=== PATIENT | female | born 1945 | race Caucasian/White ===

== ENCOUNTER 2023-09-27 10:21 | Emergency (ER) | payer MEDICARE, SELFPAY ==
[2023-09-27 10:33] VITALS: BP 133/84; PULSE 98; RESP 20; TEMP 36.8; O2SAT 98; BMI 21.6
--- NOTE | 2023-09-27 10:38 | PC.NURSE ---
Reddened blister like rash to left flank area, no drainage at this time.
--- NOTE | 2023-09-27 10:42 | ED.GENADUL1 ---
HPI - General Adult General Chief complaint: Skin/Abscess/Foreign Body Stated complaint: RASH Time Seen by Provider: 09/27/23 10:27 Source: patient Mode of arrival: walk-in Limitations: no limitations History of Present Illness HPI narrative: developed pain along the right flank and into the right mid abdomen yesterday. The a raised red patchy rash appeared today. No fever or chills. No vomiting. Related Data Home Medications Medication Instructions Recorded Confirmed losartan 100 mg tablet 100 mg PO DAILY 09/27/23 09/27/23 meloxicam 15 mg tablet 15 mg PO DAILY PRN pain 09/27/23 09/27/23 potassium chloride 10 mEq 10 meq PO DAILY 09/27/23 09/27/23 tablet,extended release(part/cryst) rosuvastatin 40 mg tablet 40 mg PO DAILY 09/27/23 09/27/23 umeclidinium 62.5 mcg-vilanterol 1 inh inhalation Q24H 09/27/23 09/27/23 25 mcg/actuation powdr for inhalation (Anoro Ellipta) Previous Rx's Medication Instructions Recorded acyclovir 800 mg tablet 800 mg PO Q4H #35 tabs 09/27/23 hydrocodone 5 mg-acetaminophen 325 1 tab PO Q8H PRN severe pain #10 09/27/23 mg tablet tabs prednisone 20 mg tablet 20 mg PO DAILY #11 tabs 09/27/23 Allergies Allergy/AdvReac Type Severity Reaction Status Date / Time No Known Drug Allergies Allergy Verified 09/27/23 10:31 Exam Narrative Exam Narrative: Nurses notes and vital signs reviewed and patient is not hypoxic. afebrile General: Well-appearing and in no apparent distress. Skin: Warm, dry, no pallor noted. Zoster rash along the right flank and extending along a dermatome into the right abdomen. Eye: Pupils are equal, round and EOMI. No scleral icterus. Cardiovascular: Regular Rate and Rhythm without murmur, gallop or rub. Respiratory: No accessory muscle use or respiratory distress. Lungs are clear to auscultation, no wheezing, rales or rhonchi Back: Tenderness at the rash on right flank Musculoskeletal: normal ROM GI: Abdomen is soft, non-distended. Normal bowel sounds. tenderness to palpation along the dermatome with rash. No rebound, guarding, or rigidity noted. Neurological: A&O x4. No cranial nerve dysfunction observed. No truncal ataxia. Moves all extremities. Sensation intact. Psychiatric: Cooperative and interactive. Normal mood and affect. Constitutional Vital Signs, click to edit/add: Last Vital Signs Temp 98.3 F 09/27/23 10:33 Pulse 98 H 09/27/23 10:33 Resp 20 09/27/23 10:33 BP 133/84 09/27/23 10:33 Pulse Ox 98 09/27/23 10:33 O2 Del Method Room Air 09/27/23 10:33 Course Vital Signs Vital signs: Vital Signs Temperature 98.3 F 09/27/23 10:33 Pulse Rate 98 H 09/27/23 10:33 Respiratory Rate 20 09/27/23 10:33 Blood Pressure 133/84 09/27/23 10:33 Pulse Oximetry 98 09/27/23 10:33 Oxygen Delivery Method Room Air 09/27/23 10:33 Temperature 98.3 F 09/27/23 10:33 Pulse Rate 98 H 09/27/23 10:33 Respiratory Rate 20 09/27/23 10:33 Blood Pressure 133/84 09/27/23 10:33 Pulse Oximetry 98 09/27/23 10:33 Oxygen Delivery Method Room Air 09/27/23 10:33 Medical Decision Making MDM Narrative Medical decision making narrative: patient prescribed acyclovir, prednisone and norco for zoster rash Discharge Plan Discharge Chief Complaint: Skin/Abscess/Foreign Body Clinical Impression: Herpes zoster Patient Disposition: Home, Self-Care Time of Disposition Decision: 10:36 Prescriptions / Home Meds: New acyclovir 800 mg tablet 800 mg PO Q4H Qty: 35 0RF Rx Instructions: while awake; give 5 doses in 24 hours prednisone 20 mg tablet 20 mg PO DAILY Qty: 11 0RF Rx Instructions: take two tabs daily for 4 days then one tab daily for 3 days hydrocodone-acetaminophen 5-325 mg tablet 1 tab PO Q8H PRN (Reason: severe pain) Qty: 10 0RF Rx Instructions: ICD 10 B02 No Action losartan 100 mg tablet 100 mg PO DAILY potassium chloride 10 mEq tablet,ER particles/crystals 10 meq PO DAILY meloxicam 15 mg tablet 15 mg PO DAILY PRN (Reason: pain) rosuvastatin 40 mg tablet 40 mg PO DAILY Anoro Ellipta 62.5-25 mcg/actuation blister with device 1 inh INHALATION Q24H Instructions: Ramiro (ED) Stand Alone Forms: Portal Instructions Referrals: LUDY DRUMMOND [Primary Care Provider] - 1 week
== END 2023-09-27 11:03 | disposition home or self-care (01) ==
LOC: ER 11:03
PROVIDERS: Emergency Provider Emergency Medicine; PCP Family Medicine
DX: B02.9 Zoster without complications (principal); Z79.899 Other long term (current) drug therapy
CPT/HCPCS: 99283

== ENCOUNTER 2024-04-01 09:37 | Emergency (ER) | payer MEDICARE, SELFPAY ==
[2024-04-01 09:44] VITALS: BP 130/87; PULSE 89; TEMP 36.9; O2SAT 96; BMI 21.8
--- NOTE | 2024-04-01 09:47 | ECG_ITS ---
The [facility] Test Date: 2024-04-01 Pat Name: PROSPER GILMORE Department: Room: - Gender: Female Development Eng: : 1945 Requested By: LUDY DRUMMOND Order Number: [id number] Reading MD: JAMES RANGEL Measurements Intervals [place] Rate: 77 P: 70 WA: 134 QRS: 70 QRSD: 82 T: 68 QT: 364 QTc: 396 Interpretive Statements 1100 Sinus rhythm 9110 normal ECG Compared to ECG 11/09/2020 21:41:00 No significant changes Electronically Signed On 04-01-2024 22:14:29 EDT by JAMES RANGEL
--- NOTE | 2024-04-01 09:47 | XR_ITS ---
The [address] [address] Patient Name: PROSPER GILMORE MRN: [id number] date: 1945 Sex: F Assigned Patient Location: ER Current Patient Location: ER Accession/Order Number: [id number] Exam Date: 04/01/2024 10:04 Report Date: 04/01/2024 10:23 At the request of: DALE CAMEJO Procedure: XR chest 1V EXAM: XR chest 1V HISTORY: . Chest pain . COMPARISON: 11/09/2020 TECHNIQUE: Single view of the chest FINDINGS: Heart and vascularity are unremarkable. There is hyperexpansion of lungs. Lungs are free of focal infiltrates. Grossly no bony abnormality is appreciated. XR/XR chest 1V IMPRESSION: 1. Hyperexpansion of lungs. 2. No acute heart or lung disease identified. Electronically authenticated by: ZHANG LANDRY Date: 04/01/2024 10:23
--- OUTSIDE RECORDS SUMMARY | 2024-04-01 10:06 | XMS_ITS | CCD ---
Author Organization [facility] Inform ion Partnership [facility] Care Team Providers Care Perinatal Instructor Name Role Phone BHANU, DR LENARD Sanon Consulting Unavailable FURLONG, DR LENARD Sanon Attending Unavailable FURLONG, DR LENARD Sanon Admitting Unavailable FURLONG, DR LENARD Sanon Primary Care Unavailable WEST, DR ZHANG Oliva Consulting Unavailable Furlong DOLenard Primary Care Provider LENARD ORTIZ Attending Unavailable BHANU, LENARD Sanon Referring Unavailable FURLONG, LENARD Sanon Primary Care Unavailable BHANU, LENARD Sanon Attending Unavailable FURLONG, LENARD Sanon Referring Unavailable FURLONG, LENARD Sanon Primary Care Unavailable FURLONG, LENARD Sanon Referring Unavailable FURLONG, LENARD Sanon Primary Care Unavailable FURLONG, LENARD Sanon Referring Unavailable FURLONG, LENARD Sanon Primary Care Unavailable Medications Current Medications Medication Drug Class(es) Dates Sig (Normalized) Sig (Original) aspirin 81 mg delayed release oral tablet (2 sources) Platelet Aggregation Inhibitor, Nonsteroidal Anti-inflammatory Drug take 1 tablet by mouth in the morning aspirin 81 mg Take 1 tablet (81 mg total) by mouth in the morning. 0 Active cholecalciferol 0.05 mg oral tablet (2 sources) Vitamin D take 1 tablet by mouth in the morning cholecalciferol, vitamin D3, 2,000 units tablet Take 1 tablet (2,000 Units total) by mouth in the morning. 0 Active ferrous sulfate 325 mg oral tablet (2 sources) ferrous sulfate 325 (65 FE) mg tablet daily. 0 Active gabapentin 100 mg oral capsule (2 sources) Anti-epileptic Agent Start: 11-12-2023 take 1 capsule by mouth three times daily gabapentin (NEURONTIN) 100 mg capsule Indications: Neuropathic postherpetic trigeminal neuralgia Take 1 capsule (100 mg total) by mouth 3 (three) times a day. 90 capsule 0 11/12/2023 Active losartan potassium 100 mg oral tablet (3 sources) Angiotensin 2 Receptor Kelly Start: 12-12-2023 take 0.5 tablet by mouth in the morning losartan (COZAAR) 100 mg tablet Indications: Essential (primary) hypertension Take 0.5 tablets (50 mg total) by mouth in the morning. 0 12/12/2023 Active Start: 06-03-2023 End: 12-12-2023 take 1 tablet by mouth once daily losartan (COZAAR) 100 mg tablet Indications: Essential (primary) hypertension TAKE 1 TABLET BY MOUTH EVERY DAY 90 tablet 3 06/03/2023 12/12/2023 Discontinued microencapsulated potassium chloride 10 meq extended release oral tablet (2 sources) Start: 09-10-2023 take 1 tablet by mouth once daily in the morning potassium chloride (KLOR-CON M 10) 10 MEQ CR tablet Indications: Hypokalemia TAKE 1 TABLET BY MOUTH EVERY MORNING 90 tablet 1 09/10/2023 Active rosuvastatin calcium 40 mg oral tablet (2 sources) HMG-CoA Reductase Inhibitor Start: 06-03-2023 take 1 tablet by mouth once daily rosuvastatin (CRESTOR) 40 mg tablet Indications: Hyperlipidemia, unspecified TAKE 1 TABLET BY MOUTH EVERY DAY 90 tablet 3 06/03/2023 Active ubidecarenone 100 mg oral capsule (2 sources) take 1 capsule by mouth once in the morning, then take 1 capsule by mouth at bedtime coenzyme Q10 100 mg capsule Take 1 capsule (100 mg total) by mouth in the morning and 1 capsule (100 mg total) before bedtime. 0 Active 30 actuat umeclidinium 0.0625 mg/actuat / vilanterol 0.025 mg/actuat dry powder inhaler (2 sources) Anticholinergic , beta2-Adrenergi c Agonist Start: 08-07-2023 take 1 puff(s) by inhalation in the morning umeclidinium-boubacar nteroL (ANORO ELLIPTA) 62.5-25 mcg/actuation blister with device Indications: Obstructive lung disease ([facility]) Inhale 1 puff in the morning. 1 each 5 08/07/2023 Active Problems Active Problems Problem Classification Problem Date Documented Da te Episodic/Chronic Anxiety disorders (2 sources) Chronic anxiety; Translations: [Anxiety disorder, unspecified] Onset: 7 08-27-2022 Chronic Chronic kidney disease (2 sources) Chronic kidney disease stage 3; Translations: [Stage 3 chronic kidney disease] Onset: 7 08-27-2022 Chronic Chronic kidney disease (2 sources) Chronic kidney disease; Translations: [Chronic kidney disease, stage 3a] Onset: 3 Chronic obstructive pulmonary disease and bronchiectasis (3 sources) Chronic obstructive lung disease; Translations: [Chronic obstructive pulmonary disease, unspecified] Onset: 4 11-12-2023 Chronic Conditions associated with dizziness or vertigo (3 sources) Dizziness; Translations: [Dizziness and giddiness] Onset: 3 05-02-2023 Episodic Deficiency and other anemia (3 sources) Iron deficiency anemia; Translations: [Iron deficiency anemia, unspecified] Onset: 7 04-15-2017 Episodic Disorders of lipid metabolism (4 sources) Hyperlipidemia; Translations: [Hyperlipidemia, unspecified] Onset: 6 08-27-2022 Chronic Diverticulosis and diverticulitis (4 sources) Diverticulum of large intestine without hemorrhage; Translations: [Diverticulosis of large intestine without perforation or abscess without bleeding] Onset: 7 04-17-2017 Chronic Esophageal disorders (2 sources) Gastroesophageal reflux disease; Translations: [Gastro-esophageal reflux disease without esophagitis] Onset: 6 08-27-2022 Chronic Essential hypertension (7 sources) Essential hypertension; Translations: [Essential (primary) hypertension] Onset: 6 08-27-2022 Chronic Headache; including migraine (2 sources) Chronic tension-type headache; Translations: [Chronic tension-type headache, not intractable] Onset: 2 08-27-2022 Chronic Hypertension with complications and secondary hypertension (5 sources) Hypertensive renal disease; Translations: [Hypertensive chronic kidney disease with stage 1 through stage 4 chronic kidney disease, or unspecified chronic kidney disease] Onset: 2 04-08-2023 Chronic Osteoarthritis (2 sources) Osteoarthritis; Translations: [Unspecified osteoarthritis, unspecified site] Onset: 6 08-27-2022 Chronic Other circulatory disease (1 source) Orthostatic hypotension; Translations: [Orthostatic hypotension] 12-12-2023 Episodic Other circulatory disease (1 source) Orthostatic hypotension; Translations: [Orthostatic hypotension] Onset: 4 Episodic Other gastrointestinal disorders (1 source) Diarrhea Onset: 4 Episodic Other hereditary and degenerative nervous system conditions (2 sources) Impaired cognition; Translations: [Mild cognitive impairment, so stated] Onset: 3 06-03-2023 Chronic Other lower respiratory disease (1 source) Shortness of breath Onset: 4 Episodic Other screening for suspected conditions (not mental disorders or infectious disease) (4 sources) Encounter for screening mammogram for malignant neoplasm of breast; Translations: [ENC SCR MAMMO MALIG NEOPLASM BREAST] Onset: 2 Episodic Prolapse of female genital organs (2 sources) Cystocele; Translations: [Cystocele, unspecified] Onset: 6 08-27-2022 Chronic Residual codes; unclassified (1 source) Family history of malignant neoplasm of breast; Translations: [FAMILY HX MALIG NEOPLASM OF BREAST] Onset: 2 Episodic Residual codes; unclassified (1 source) Family history of malignant neoplasm of trachea, bronchus and lung; Translations: [FAM HX MALIG NEOPLSM TRACH BRON LNG] Onset: 2 Episodic Residual codes; unclassified (1 source) Family history of malignant neoplasm of other organs or systems; Translations: [FAM HX MALIG NEOPLASM OTH ORGN/SYS] Onset: 2 Episodic Spondylosis; intervertebral disc disorders; other back problems (2 sources) Degeneration of lumbar intervertebral disc; Translations: [Other intervertebral disc degeneration, lumbar region] Onset: 6 08-27-2022 Chronic Spondylosis; intervertebral disc disorders; other back problems (3 sources) Spinal stenosis of lumbar region; Translations: [Spinal stenosis, lumbar region with neurogenic claudication] Onset: 3 07-08-2023 Episodic Thyroid disorders (1 source) Hypothyroidism Onset: 4 Chronic Viral infection (1 source) Postherpetic trigeminal neuralgia; Translations: [Postherpetic trigeminal neuralgia] Onset: 4 Episodic Past or Other Problems Problem Classification Problem Date Documented Date Episodic/Chronic Deficiency and other anemia (2 sources) Iron deficiency anemia, unspecified; Translations: [Iron deficiency anemia, unspecified] Onset: 7 Episodic Diabetes mellitus without complication (2 sources) Impaired fasting glycemia; Translations: [Impaired fasting glucose] Onset: 6 08-27-2022 Episodic Gastritis and duodenitis (2 sources) Acute superficial gastritis; Translations: [Acute gastritis without bleeding] Onset: 0 05-04-2020 Episodic Gastroduodenal ulcer (except hemorrhage) (2 sources) Acute gastric ulcer without hemorrhage AND without perforation; Translations: [Acute gastric ulcer without hemorrhage or perforation] Onset: 0 05-04-2020 Episodic Headache; including migraine (2 sources) Headache; Translations: [Nonintractable episodic headache] Onset: 6 05-02-2023 Episodic Mood disorders (2 sources) Mood disorders Onset: 4 Resolved: 4 11-12-2023 Other bone disease and musculoskeletal deformities (2 sources) Osteopenia; Translations: [Other specified disorders of bone density and structure, unspecified site] Onset: 6 08-27-2022 Episodic Other connective tissue disease (2 sources) Ganglion cyst; Translations: [Ganglion, unspecified site] Onset: 6 08-27-2022 Episodic Other connective tissue disease (2 sources) Ganglion of joint; Translations: [Ganglion, unspecified site] Onset: 2 08-27-2022 Episodic Other connective tissue disease (2 sources) Dupuytren contracture of right palm; Translations: [Palmar fascial fibromatosis [Dupuytren]] Onset: 2 08-27-2022 Episodic Other gastrointestinal disorders (2 sources) Dysphagia; Translations: [Dysphagia, pharyngoesophageal phase] Onset: 0 04-22-2020 Episodic Other skin disorders (2 sources) Seborrheic keratosis; Translations: [Other seborrheic keratosis] Onset: 2 08-27-2022 Episodic Results Test Name Value Interpretation Reference Range Facility Basic Metabolic Panelon 11-28 Anion gap [Moles/Vol] 9 mmol/L 5 - 15 mmol/L [facility] Calcium [Mass/Vol] 9.5 mg/dL 8.5 - 10. 5 mg/dL [facility] Chloride [Moles/Vol] 110 mmol/L High 98 - 10 9 mmol/L [facility] CO2 [Moles/Vol] 22 mmol/L 22 - 32 mmol/L [facility] Creatinine [Mass/Vol] 0.93 mg/dL 0.40 - 1.00 mg/dL [facility] Comment on above: METHOD TRACEABLE TO [facility] STANDARD eGFR (CKD-EPI)non-race dependent 62 - PINF [facility] Comment on above: Reported eGFR is based on the CKD-EPI 2020 equation that does not use a race coefficient. Glucose [Mass/Vol] 98 mg/dL 65 - 99 mg/dL [facility] Interpretation and review of laboratory results Abnormal [facility] Potassium [Moles/Vol] 4.3 mmol/L 3.5 - 5.0 mmol/L [facility] Sodium [Moles/Vol] 141 mmol/L 134 - 146 mmol/L [facility] Urea nitrogen [Mass/Vol] 30 mg/dL High 5 - 27 mg/dL [facility] CBC without diffon Erythrocyte distribution width (RBC) [Ratio] 13.5 % 11.5 - 15.0 % [facility] Hematocrit (Bld) [Volume fraction] 34.1 % Low 35 - 47 % [facility] Hemoglobin (Bld) [Mass/Vol] 11.5 g/dL Low 11.7 - 15.5 g/dL [facility] Interpretation and review of laboratory results Abnormal [facility] MCH (RBC) [Entitic mass] 32.9 pg 27 - 34 pg [facility] MCHC (RBC) [Mass/Vol] 33.7 g/dL 32 - 36 g/dL [facility] MCV (RBC) [Entitic vol] 98 fL 80 - 100 fL [facility] Platelet mean volume (Bld) [Entitic vol] 8.2 fL 7 - 12 fL [facility] Platelets (Bld) [#/Vol] 251 10*3/uL [facility] RBC (Bld) [#/Vol] 3.48 10*6/uL Low [facility] WBC corrected for nucl RBC Auto (Bld) [#/Vol] 4.6 [facility] Iron and TIBCon 12-13-2023 Iron [Mass/Vol] 76 ug/dL 50 - 170 ug/dL [facility] Iron binding capacity [Mass/Vol] 403 ug/dL 250 - 425 ug/dL [facility] Iron saturation [Mass fraction] 19 [facility] No Panel Informationon 12-13 [facility] BASIC METABOLIC PANLon 12-12 Anion gap [Moles/Vol] 9 mmol/L Normal 5-15 [facility] Comment on above: Performed By: #### C NAMAN BMP, FEPR #### [facility] ([id number]) [address], [address] [place] [address] Calcium [Mass/Vol] 9.5 mg/dL Normal 8.5-10.[address] [facility] Comment on above: Performed By: #### Susan FLORENCE BMP, FEPR #### [facility] ([id number]) [address], [address] [place] [address] Chloride [Moles/Vol] 110 mmol/L High 98-109 [facility] Comment on above: Performed By: #### C BC, BMP, FEPR #### [facility] ([id number]) [address], [address] [place] [address] CO2 [Moles/Vol] 22 mmol/L Normal 22-32 [facility] Comment on above: Performed By: #### C BC, BMP, FEPR #### [facility] ([id number]) [address], [address] [place] [address] Creatinine [Mass/Vol] 0.93 mg/dL Normal 0.40-1.00 [facility] Comment on above: Result Comment: METH OD TRACEABLE TO IDMS STANDARD Performed By: #### C BC BMP, FEPR #### [facility] ([id number]) [address] [address] [place] [address] GFR/1.73 sq M.predicted among non-blacks MDRD (S/P/Bld) [Vol rate/Area] 62 mL/min/{1.73_m2} Normal >59 [facility] Comment on above: Result Comment: Reported eGFR is based on the CKD-EPI 2020 equation that does not use a race coefficient. Performed By: #### C HARLEY FLORENCE, FEPR #### [facility] ([id number]) [address] [address] Glucose [Mass/Vol] 98 mg/dL Normal 65-[address] [facility] Comment on above: Performed By: #### C HARLEY FLORENCE, FEPR #### [facility] ([id number]) [address] [address] Potassium [Moles/Vol] 4.3 mmol/L Normal 3.5-5.0 [facility] Comment on above: Performed By: #### C BC BMP, FEPR #### [facility] ([id number]) [address] [address] Sodium [Moles/Vol] 141 mmol/L Normal 134-[address] [facility] Comment on above: Performed By: #### Susan FLORENCE BMP, FEPR #### [facility] ([id number]) [address] [address] Urea nitrogen [Mass/Vol] 30 mg/dL High 5-27 [facility] Comment on above: Performed By: #### C BC BMP, FEPR #### [facility] ([id number]) [address] [address] COMPLETE BLOOD COUNTon 12-12 Erythrocyte distribution width (RBC) [Ratio] 13.5 % Normal 11.5-15.0 [facility] Comment on above: Performed By: #### C BC BMP, FEPR #### [facility] ([id number]) [address] [place] [address] Hematocrit (Bld) [Volume fraction] 34.1 % Low 35-47 [facility] Comment on above: Performed By: #### C HARLEY FLORENCE, FEPR #### [facility] ([id number]) [address], [address] [place] [address] Hemoglobin (Bld) [Mass/Vol] 11.5 g/dL Low 11.7-15.5 [facility] Comment on above: Performed By: #### C HARLEY FLORENCE, FEPR #### [facility] ([id number]) [address], [address] [place] [address] MCH (RBC) [Entitic mass] 32.9 pg Normal 27-34 [facility] Comment on above: Performed By: #### C HARLEY FLORENCE, FEPR #### [facility] ([id number]) [address], [address] [place] [address] MCHC (RBC) [Mass/Vol] 33.7 g/dL Normal 32-36 [facility] Comment on above: Performed By: #### C HARLEY FLORENCE, FEPR #### [facility] ([id number]) [address], [address] [place] [address] MCV (RBC) [Entitic vol] 98 fL Normal 80-100 [facility] Comment on above: Performed By: #### HARLEY NICOLE, FEPR #### [facility] ([id number]) [address], [address] [place] [address] Platelet mean volume (Bld) [Entitic vol] 8.2 fL Normal 7-12 [facility] Comment on above: Performed By: #### C NAMAN BMP, FEPR #### [facility] ([id number]) [address], [address] [place] [address] Platelets (Bld) [#/Vol] 251 10*3/uL Normal 150-450 [facility] Comment on above: Performed By: #### C NAMAN BMP, FEPR #### [facility] ([id number]) [address], [address] [place] [address] RBC COUNT 3.48 X10E12/L Low 3.80-5.20 [facility] Comment on above: Performed By: #### C NAMAN, BMP, FEPR #### [facility] ([id number]) [address] [place] [address] WBC (Bld) [#/Vol] 4.6 10*3/uL Normal 4.0-11.[address] [facility] Comment on above: Performed By: #### HARLEY NICOLE, FEPR #### [facility] ([id number]) [address] [place] [address] IRON PROFILEon 12-12-2023 Iron [Mass/Vol] 76 ug/dL Normal 50-170 [facility] Comment on above: Performed By: #### HARLEY NICOLE, FEPR #### [facility] ([id number]) [address], [address] [place] [address] IRON BINDING 403 ug/dL Normal 250-425 [facility] Comment on above: Performed By: #### Susan FLORENCE, BMP, FEPR #### [facility] ([id number]) [address] [place] [address] IRON SATURATION 19 % SATURATION Normal 15-50 [facility] Comment on above: Performed By: #### Susan FLORENCE, BMP, FEPR #### [facility] ([id number]) [address], [address] [place] [address] COMPREHENSIVE METABOLIC PANE Leonides 11-12-2023 Albumin [Mass/Vol] 4.0 g/dL Normal 3.2-5.[address] [facility] Comment on above: Performed By: #### Susan JIMENEZ, 74072-3 #### [facility] ([id number]) [address], [address] [place] [address] ALP [Catalytic activity/Vol] 51 U/L Normal 39-130 [facility] Comment on above: Performed By: #### Susan JIMENEZ, 27318-9 #### [facility] ([id number]) [address] [place] [address] ALT [Catalytic activity/Vol] 15 U/L Normal 0-31 [facility] Comment on above: Performed By: #### Susan JIMENEZ, 38446-4 #### [facility] ([id number]) [address] [place] [address] Anion gap [Moles/Vol] 10 mmol/L Normal 5-15 [facility] Comment on above: Performed By: #### Susan JIMENEZ, 27587-2 #### [facility] ([id number]) [address], [address] [place] [address] AST [Catalytic activity/Vol] 21 U/L Normal 0-41 [facility] Comment on above: Performed By: #### Susan JIMENEZ, 91334-2 #### [facility] ([id number]) [address] [place] [address] Bilirubin [Mass/Vol] 0.3 mg/dL Normal 0.3-1.2 [facility] Comment on above: Performed By: #### Susan JIMENEZ, 96932-6 #### [facility] ([id number]) [address] [place] [address] Calcium [Mass/Vol] 9.8 mg/dL Normal 8.5-10.[address] [facility] Comment on above: Performed By: #### Susan JIMENEZ, 23340-3 #### [facility] ([id number]) [address], [address] [place] [address] Chloride [Moles/Vol] 104 mmol/L Normal 98-109 [facility] Comment on above: Performed By: #### Susan JIMENEZ, 97108-6 #### [facility] ([id number]) [address], [address] [place] [address] CO2 [Moles/Vol] 23 mmol/L Normal 22-32 [facility] Comment on above: Performed By: #### Susan JIMENEZ, 06642-4 #### [facility] ([id number]) [address], [facility] [address] [place] [address] Creatinine [Mass/Vol] 1.28 mg/dL High 0.40-1.00 [facility] Comment on above: Result Comment: METH OD TRACEABLE TO IDMS STANDARD Performed By: #### Susan JIMENEZ, 38057-1 #### [facility] ([id number]) [address], [facility] [address] [place] [address] GFR/1.73 sq M.predicted among non-blacks MDRD (S/P/Bld) [Vol rate/Area] 42 mL/min/{1.73_m2} Low >59 [facility] Comment on above: Result Comment: Reported eGFR is based on the CKD-EPI 2020 equation that does not use a race coefficient. Performed By: #### Susan JIMENEZ, 50404-5 #### [facility] ([id number]) [address], [address] [place] [address] Glucose [Mass/Vol] 100 mg/dL High 65-[address] [facility] Comment on above: Performed By: #### Susan JIMENEZ, 58080-8 #### [facility] ([id number]) [address] [address] [place] [address] Potassium [Moles/Vol] 4.6 mmol/L Normal 3.5-5.0 [facility] Comment on above: Performed By: #### Susan JIMENEZ, 99360-6 #### [facility] ([id number]) [address], [address] [place] [address] Protein [Mass/Vol] 7.3 g/dL Normal 6.0-8.[address] [facility] Comment on above: Performed By: #### Susan JIMENEZ, 14759-9 #### [facility] ([id number]) [address], [address] [place] [address] Sodium [Moles/Vol] 137 mmol/L Normal 134-[address] [facility] Comment on above: Performed By: #### Susan JIMENEZ, 35507-3 #### [facility] ([id number]) [address], [address] [place] [address] Urea nitrogen [Mass/Vol] 36 mg/dL High 5-27 [facility] Comment on above: Performed By: #### Susan JIMENEZ, 48814-7 #### [facility] ([id number]) [address], [address] [place] [address] Lipid 1996 panelon 4 Cholesterol [Mass/Vol] 137 mg/dL Low 150-200 [facility] Comment on above: Performed By: #### Susan JIMENEZ, 04825-4 #### [facility] ([id number]) [address], [address] [place] [address] Cholesterol in HDL [Mass/Vol] 44 mg/dL Normal >39 [facility] Comment on above: Result Comment: HDL <40 mg/dL - High Risk HDL > or = 40mg/dL- Desirable HDL >60 mg/dL - Negative Risk Performed By: #### Susan JIMENEZ, 78042-4 #### [facility] ([id number]) [address] [place] [address] Cholesterol in LDL [Mass/Vol] 43 mg/dL Normal <130 [facility] Comment on above: Result Comment: LDL <100 mg/dL - Desirable LDL >160 mg/dL - High Risk Performed By: #### C TONY, 37324-4 #### [facility] ([id number]) [address], [address] [place] [address] Cholesterol in VLDL [Mass/Vol] 50 mg/dL High 0-30 [facility] Comment on above: Performed By: #### Susan JIMENEZ, 68344-4 #### [facility] ([id number]) [address], [address] [place] [address] CHOLESTEROL:HDL 3.1 Normal 1.0-5.0 [facility] Comment on above: Performed By: #### Susan JIMENEZ, 96529-3 #### [facility] ([id number]) [address], [address] [place] [address] Triglyceride [Mass/Vol] 248 mg/dL High 27-150 [facility] Comment on above: Performed By: #### Susan JIMENEZ, 10704-5 #### [facility] ([id number]) [address], [address] [place] [address] MG MAMM SCREEN 3D KJ CADon 09-12-2022 MG MAMM SCREEN 3D KJ CAD Patient: SHELLEY HUTCHISON Exam Date: 09/12/2022 : 1945 Gender:F Ordering : DR LENARD ORTIZ Admission #: [id number] Family : Order #: [id number] CLICK HERE TO VIEW EXAM RADIOLOGY REPORT PROCEDURE: MAMMOGRAM SCREENING 3D BILATERAL CAD COMPARISON: MG MAMM SCREEN KJ W CAD, 10/24/2018. MG MAMM SCREEN 3D KJ CAD, 08/22/2021. INDICATIONS: Screening mammography Calculator Name NCI Breast Cancer Risk Assessment Tool 5 Year Breast Cancer Risk 3.50% Lifetime Breast Cancer Risk 5.90% Personal Breast Cancer No Personal Ovarian Cancer No Treatments None Family Cancers Sister with breast cancer at age 33; Mother with throat cancer at age 67; Sister with lung cancer at age 62. LOCATION: [facility] BREAST COMPOSITION: Heterogeneously dense,which may obscure small masses. FINDINGS: DIAGNOSTIC CATEGORY 2--BENIGN FINDING. NO CHANGE FROM COMPARISON. Scattered benign-appearing calcifications are present. Scattered benign-appearing lymph nodes are present. RIGHT BREAST: No significant suspicious finding. LEFT BREAST: No significant suspicious finding. RECOMMENDATIONS: ROUTINE MAMMOGRAM AND CLINICAL EVALUATION IN 12 MONTHS. PLEASE NOTE: A NORMAL MAMMOGRAM DOES NOT EXCLUDE THE POSSIBILITY OF BREAST CANCER. A CLINICALLY SUSPICIOUS PALPABLE LUMP SHOULD BE BIOPSIED. Dictated by: Zhang Castellanos MD on 09/12/2022 at 09:52 Approved by: Zhang Castellanos MD on 09/12/2022 at 09:54 Normal [facility] [facility] CULTURE, URINE, ROUTINEon CULTURE, URINE, ROUTINE SEE NOTE Abnormal [facility] Comment on above: Order Comment: FASTI NG: UNKNOWN Result Comment: CULTURE, URINE, ROUTINE Micro Number: [id number] Test Status: Final Specimen Source: Not given Specimen Quality: Adequate Result: Greater than 100,000 CFU/mL of Klebsiella pneumoniae K.pneumoniae INT CARMEN AMOX/CLAVULANATE S 4 AMPICILLIN R 16 AMP/SULBACTAM S 4 CEFAZOLIN NR <=4 2 CEFEPIME S <=1 CEFTAZIDIME S <=1 CEFTRIAXONE S <=1 CIPROFLOXACIN S <=0.25 GENTAMICIN S <=1 IMIPENEM S <=0.25 LEVOFLOXACIN S <=0.12 NITROFURANTOIN I 64 PIP/TAZOBACTAM S <=4 TOBRAMYCIN S <=1 TRIMETHOPRIM/SULFA S <=20 S=Susceptible I=Intermediate R=Resistant * = Not Tested NR = Not Reported NN = See Therapy Comments THERAPY COMMENTS Note 1: For infections other than uncomplicated UTI caused by E. coli, K. pneumoniae or P. mirabilis: Cefazolin is resistant if CARMEN > or = 8 mcg/mL. (Distinguishing susceptible versus intermediate for isolates with CARMEN < or = 4 mcg/mL requires additional testing.) Note 2: For uncomplicated UTI caused by E. coli, K. pneumoniae or P. mirabilis: Cefazolin is susceptible if CARMEN <32 mcg/mL and predicts susceptible to the oral agents cefaclor, cefdinir, cefpodoxime, cefprozil, cefuroxime, cephalexin and loracarbef. NO COLLECTION DATE RECEIVED. WE HAVE USED THE DATE THE SPECIMEN WAS RECEIVED BY THIS LABORATORY THE COLLECTION DATE. IF THIS IS INCORRECT, PLEASE CONTACT CLIENT SERVICES. PHONE NUMBER: [phone] Performed By: #### 3 95 #### [facility] [place] [address] Surgical Lead: Chava Ness MD CBC (INCLUDES DIFF/PLT)on Basophils (Bld) [#/Vol] 0.029 10*3/uL Normal 0-200 [facility] Comment on above: Performed By: #### 1 0165, 6399 #### [facility] [place] [address] Surgical Lead: Chava Ness MD Basophils/100 WBC (Bld) 0.5 % Normal [facility] Comment on above: Performed By: #### 1 0165, 6399 #### [facility] [place] [address] Surgical Lead: Chava Ness MD Eosinophils (Bld) [#/Vol] 0.182 10*3/uL Normal 15-500 [facility] Comment on above: Performed By: #### 1 0165, 6399 #### [facility] [place] [address] Surgical Lead: Chava Ness MD Eosinophils/100 WBC (Bld) 3.2 % Normal [facility] Comment on above: Performed By: #### 1 0165, 6399 #### [facility] [place] [address] Surgical Lead: Chava Ness MD Erythrocyte distribution width (RBC) [Ratio] 12.7 % Normal 11.0-15.0 [facility] Comment on above: Performed By: #### 1 0165, 6399 #### [facility] [address] [address] Surgical Lead: Chava Ness MD Hematocrit (Bld) [Volume fraction] 32.4 % Low 35.0-45.0 [facility] Comment on above: Performed By: #### 1 0165, 6399 #### [facility] of [place] [address] Surgical Lead: Chava Ness MD Hemoglobin (Bld) [Mass/Vol] 10.6 g/dL Low 11.7-15.5 [facility] Comment on above: Performed By: #### 1 0165, 6399 #### [facility] of [place] [address] Surgical Lead: Chava Ness MD Lymphocytes (Bld) [#/Vol] 1.721 10*3/uL Normal 850-3900 [facility] Comment on above: Performed By: #### 1 0165, 6399 #### [facility] of [place] [address] Surgical Lead: Chava Ness MD Lymphocytes/100 WBC (Bld) 30.2 % Normal [facility] Comment on above: Performed By: #### 1 0165, 6399 #### [facility] [place] [address] Surgical Lead: Chava Ness MD MCH (RBC) [Entitic mass] 32.0 pg Normal 27.0-33.0 [facility] Comment on above: Performed By: #### 1 0165, 6399 #### [facility] [place] [address] Surgical Lead: Chava Ness MD MCHC (RBC) [Mass/Vol] 32.7 g/dL Normal 32.0-36.0 [facility] Comment on above: Performed By: #### 1 0165, 6399 #### [facility] of [place] [address] Surgical Lead: Chava Ness MD MCV (RBC) [Entitic vol] 97.9 fL Normal 80.0-100.0 [facility] Comment on above: Performed By: #### 1 0165, 6399 #### [facility] [place] [address] Surgical Lead: Chava Ness MD Monocytes (Bld) [#/Vol] 0.564 10*3/uL Normal 200-950 [facility] Comment on above: Performed By: #### 1 0165, 6399 #### [facility] [place] [address] Surgical Lead: Chava Ness MD Monocytes/100 WBC (Bld) 9.9 % Normal [facility] Comment on above: Performed By: #### 1 0165, 6399 #### [facility] [place] [address] Surgical Lead: Chava Ness MD Neutrophils (Bld) [#/Vol] 3.203 10*3/uL Normal 6757-3095 [facility] Comment on above: Performed By: #### 1 0165, 6399 #### [facility] [place] [address] Surgical Lead: Chava Ness MD Neutrophils/100 WBC (Bld) 56.2 % Normal [facility] Comment on above: Performed By: #### 1 0165, 6399 #### [facility] [place] [address] Surgical Lead: Chava Ness MD Platelet mean volume (Bld) [Entitic vol] 10.1 fL Normal 7.5-12.5 [facility] Comment on above: Performed By: #### 1 0165, 6399 #### [facility] [place] [address] Surgical Lead: Chava Ness MD Platelets (Bld) [#/Vol] 236 10*3/uL Normal 140-400 [facility] Comment on above: Performed By: #### 1 0165, 6399 #### [facility] of [address] [place] [address] Surgical Lead: Chava Ness MD RBC (Bld) [#/Vol] 3.31 10*6/uL Low 3.80-5.10 [facility] Comment on above: Performed By: #### 1 0165, 6399 #### [facility] of [address], [address] [place] [address] Surgical Lead: Chava Ness MD WBC (Bld) [#/Vol] 5.7 10*3/uL Normal 3.8-10.8 [facility] Comment on above: Performed By: #### 1 0165, 6399 #### [facility] of [address], [address] [place] [address] Surgical Lead: Chava Ness MD [facility] 04-07-2022 Albumin [Mass/Vol] 3.9 g/dL Normal 3.6-5.1 [facility] Comment on above: Performed By: #### 1 0165, 6399 #### [facility] of [address], [address] [place] [address] Surgical Lead: Chava Ness MD Albumin/Globulin [Mass ratio] 1.5 {ratio} Normal 1.0-2.5 [facility] Comment on above: Performed By: #### 1 0165, 6399 #### [facility] of [address], [address] [place] [address] Surgical Lead: Chava Ness MD ALP [Catalytic activity/Vol] 45 U/L Normal 37-153 [facility] Comment on above: Performed By: #### 1 0165, 6399 #### [facility] of [address], [address] [place] [address] Surgical Lead: Chava Ness MD ALT [Catalytic activity/Vol] 12 U/L Normal 6-29 [facility] Comment on above: Performed By: #### 1 0165, 6399 #### [facility] of [address], [address] [place] [address] Surgical Lead: Chava Ness MD AST [Catalytic activity/Vol] 16 U/L Normal 10-35 [facility] Comment on above: Performed By: #### 1 0165, 6399 #### [facility] of [address], [address] [place] [address] Surgical Lead: Chava Ness MD Bilirubin [Mass/Vol] 0.5 mg/dL Normal 0.2-1.2 [facility] Comment on above: Performed By: #### 1 0165, 6399 #### [facility] of [address], [address] [place] [address] Surgical Lead: Chava Ness MD Calcium [Mass/Vol] 9.0 mg/dL Normal 8.6-10.4 [facility] Comment on above: Performed By: #### 1 0165, 6399 #### [facility] [address], [address] [place] [address] Surgical Lead: Chava Ness MD Chloride [Moles/Vol] 108 mmol/L Normal 98-110 [facility] Comment on above: Performed By: #### 1 0165, 6399 #### [facility] [place] [address] Surgical Lead: Chava Ness MD CO2 [Moles/Vol] 21 mmol/L Normal 20-32 [facility] Comment on above: Performed By: #### 1 0165, 6399 #### [facility] [place] [address] Surgical Lead: Chava Ness MD Creatinine [Mass/Vol] 1.13 mg/dL High 0.60-0.93 [facility] Comment on above: Result Comment: For patients >49 years of age, the reference limit for Creatinine is approximately 13% higher for people identified as -Peruvian. Performed By: #### 1 0165, 6399 #### [facility] of [address], [address] [place] [address] Surgical Lead: Chava Ness MD eGFR NON-AFR. GUYANESE 47 mL/min/1.73m2 Low > OR = 60 [facility] Comment on above: Performed By: #### 1 0165, 6399 #### [facility] [place] [address] Surgical Lead: Chava Ness MD GFR/1.73 sq M.predicted among blacks MDRD (S/P/Bld) [Vol rate/Area] 54 mL/min/{1.73_m2} Low > OR = 60 [facility] Comment on above: Performed By: #### 1 0165, 6399 #### [facility] of [address], [address] [place] [address] Surgical Lead: Chava Ness MD Globulin (S) [Mass/Vol] 2.6 g/dL Normal 1.9-3.7 [facility] Comment on above: Performed By: #### 1 0165, 6399 #### [facility] [address], [address] [place] [address] Surgical Lead: Chava Ness MD Glucose [Mass/Vol] 140 mg/dL High 65-139 [facility] Comment on above: Result Comment: Non-fasting reference interval For someone without known diabetes, a glucose value >125 mg/dL indicates that they may have diabetes and this should be confirmed with a follow-up test. Performed By: #### 1 0165, 6399 #### [facility] [address], [address] [place] [address] Surgical Lead: Chava Ness MD Potassium [Moles/Vol] 4.4 mmol/L Normal 3.5-5.3 [facility] Comment on above: Performed By: #### 1 0165, 6399 #### [facility] [address], [address] [place] [address] Surgical Lead: Chava Ness MD Protein [Mass/Vol] 6.5 g/dL Normal 6.1-8.1 [facility] Comment on above: Performed By: #### 1 0165, 6399 #### [facility] [address], [address] [place] [address] Surgical Lead: Chava Ness MD Sodium [Moles/Vol] 140 mmol/L Normal 135-146 [facility] Comment on above: Performed By: #### 1 0165, 6399 #### [facility] [address], [address] [place] [address] Surgical Lead: Chava Ness MD Urea nitrogen [Mass/Vol] 19 mg/dL Normal 7-25 [facility] Comment on above: Performed By: #### 1 0165, 6399 #### [facility] [address], [address] [place] [address] Surgical Lead: Chava Ness MD Urea nitrogen/Creatinine [Mass ratio] 17 mg/mg Normal 6-22 [facility] Comment on above: Performed By: #### 1 0165, 6399 #### [facility] [address], [address] [place] [address] Surgical Lead: Chava Ness MD CULTURE, URINE, ROUTINEon Bacteria identified Cx Nom (U) SEE NOTE Abnormal [facility] Comment on above: Result Comment: CULTURE, URINE, ROUTINE Micro Number: [id number] Test Status: Final Specimen Source: Urine Specimen Quality: Adequate Result: Greater than 100,000 CFU/mL of Group B Streptococcus isolated Beta-hemolytic streptococci are predictably susceptible to Penicillin and other beta-lactams. Susceptibility testing not routinely performed. Please contact the laboratory within 3 days if susceptibility testing is desired. Comment: Erythromycin and clindamycin are not recommended for treatment of urinary tract infections, but clindamycin may be useful for treatment in penicillin allergic patients for rectovaginal colonization or for intrapartum prophylaxis if indicated. Performed By: #### 1 0165, 6399 #### [facility] [address], [address] [place] [address] Surgical Lead: Chava Ness MD LIPID PANEL, STANDARDon 03-28 Cholesterol [Mass/Vol] 159 mg/dL Normal <200 [facility] Comment on above: Order Comment: FASTI NG:NOFASTING: NO Performed By: #### 1 0165, 6399 #### [facility] [address], [address] [place], [place] [address] Surgical Lead: Chava Ness MD Cholesterol in HDL [Mass/Vol] 50 mg/dL Normal > OR = 50 [facility] Comment on above: Order Comment: FASTI NG:NOFASTING: NO Performed By: #### 1 0165, 6399 #### [facility] [place] [address] Surgical Lead: Chava Ness MD Cholesterol in LDL [Mass/Vol] 70 mg/dL Normal [facility] Comment on above: Order Comment: FASTI NG:NOFASTING: NO Result Comment: Refe rence range: <100 Desirable range <100 mg/dL for primary prevention; <70 mg/dL for patients with CHD or diabetic patients with > or = 2 CHD risk factors. LDL-C is now calculated using the Vince calculation, which is a validated novel method providing better accuracy than the Friedewald equation in the estimation of LDL-C. Boni SS et al. VARSHA. 2013;310(19): 9884-0453 (http://education.VM6 Software.TeleDNA/faq/ZRQ134) Performed By: #### 1 0165, 6399 #### [facility] [place] [address] Surgical Lead: Chava Ness MD Cholesterol.total/Ch olesterol in HDL [Mass ratio] 3.2 {ratio} Normal <5.0 [facility] Comment on above: Order Comment: FASTI NG:NOFASTING: NO Performed By: #### 1 0165, 6399 #### [facility] [place] [address] Surgical Lead: Chava Ness MD NON HDL CHOLESTEROL 109 mg/dL (calc) Normal <130 [facility] Comment on above: Order Comment: FASTI NG:NOFASTING: NO Result Comment: For patients with diabetes plus 1 major ASCVD risk factor, treating to a non-HDL-C goal of <100 mg/dL (LDL-C of <70 mg/dL) is considered a therapeutic option. Performed By: #### 1 0165, 6399 #### [facility] of [place] [address] Surgical Lead: Chava Ness MD Triglyceride [Mass/Vol] 323 mg/dL High <150 [facility] Comment on above: Order Comment: FASTI NG:NOFASTING: NO Result Comment: If a non-fasting specimen was collected, consider repeat triglyceride testing on a fasting specimen if clinically indicated. Clint et al. J. of Clin. Lipidol. 2015;9:129-169. Performed By: #### 1 0165, 6399 #### [facility] [place] [address] Surgical Lead: Chava Ness MD MAGNESIUMon 04-07-2022 Magnesium [Mass/Vol] 1.9 mg/dL Normal 1.5-2.5 [facility] Comment on above: Performed By: #### 1 0165, 6399 #### [facility] [place] [address] Surgical Lead: Chava Ness MD PHOSPHATE ( PHOSPHORUS)on 04-07-2022 Phosphate [Mass/Vol] 4.0 mg/dL Normal 2.1-4.3 [facility] Comment on above: Performed By: #### 1 016Sabrina, 6399 #### [facility] [place] [address] Surgical Lead: Chava Ness MD PTH, INTACT WITHOUT CALCIUMo n 04-07-2022 PARATHYROID HORMONE, INTACT 50 pg/mL Normal 16-77 [facility] Comment on above: Result Comment: Interpretive Guide Intact PTH Calcium ------- Normal Parathyroid Normal Normal Hypoparathyroidism Low or Low Normal Low Hyperparathyroidism Primary Normal or High High Secondary High Normal or Low Tertiary High High Non-Parathyroid Hypercalcemia Low or Low Normal High Performed By: #### 1 0165, 6399 #### [facility] [place] [address] Surgical Lead: Chava Ness MD URIC ACIDon 04-07-2022 Urate [Mass/Vol] 4.0 mg/dL Normal 2.5-7.0 [facility] Comment on above: Result Comment: Ther apeutic target for gout patients: <6.0 mg/dL Performed By: #### 1 0165, 6399 #### [facility] of [address], [address] [place] [address] Surgical Lead: Chava Ness MD URINALYSIS, COMPLETEon 04-07 Appearance (U) CLOUDY Abnormal CLEAR [facility] Comment on above: Performed By: #### 1 0165, 6399 #### [facility] of [address], [address] [place] [address] Surgical Lead: Chava Ness MD BACTERIA MANY Abnormal NONE SEEN [facility] Comment on above: Performed By: #### 1 0165, 6399 #### [facility] of [address], [address] [place] [address] Surgical Lead: Chava Ness MD Bilirubin Ql (U) Negative Normal NEGATIVE [facility] Comment on above: Performed By: #### 1 0165, 6399 #### [facility] [place] [address] Surgical Lead: Chava Ness MD Color (U) YELLOW Normal YELLOW [facility] Comment on above: Performed By: #### 1 0165, 6399 #### [facility] [place] [address] [place] [address] Surgical Lead: Chava Ness MD Glucose Ql (U) Negative Normal NEGATIVE [facility] Comment on above: Performed By: #### 1 0165, 6399 #### [facility] of [place] [address], [address] [place] [address] Surgical Lead: Chava Ness MD HYALINE CAST 0-5 Abnormal NONE SEEN [facility] Comment on above: Performed By: #### 1 0165, 6399 #### [facility] of [place] [address], [address] [place] [address] Surgical Lead: Chava Ness MD Ketones Ql (U) Negative Normal NEGATIVE [facility] Comment on above: Performed By: #### 1 0165, 6399 #### [facility] [place] [address] Surgical Lead: Chava Ness MD Leukocyte esterase Test strip Ql (U) 3+ Abnormal NEGATIVE [facility] Comment on above: Performed By: #### 1 0165, 6399 #### [facility] [place] [address] Surgical Lead: Chava Ness MD Nitrite Ql (U) Negative Normal NEGATIVE [facility] Comment on above: Performed By: #### 1 0165, 6399 #### [facility] [place] [address] Surgical Lead: Chava Ness MD OCCULT BLOOD TRACE Abnormal NEGATIVE [facility] Comment on above: Performed By: #### 1 0165, 6399 #### [facility] [place] [address] Surgical Lead: Chava Ness MD pH (U) 6.5 [pH] Normal 5.0-8.0 [facility] Comment on above: Performed By: #### 1 0165, 6399 #### [facility] [place] [address] Surgical Lead: Chava Ness MD Protein Ql (U) Negative Normal NEGATIVE [facility] Comment on above: Performed By: #### 1 0165, 6399 #### [facility] [place] [address] Surgical Lead: Chava Ness MD RBC NONE SEEN Normal < OR = 2 [facility] Comment on above: Performed By: #### 1 0165, 6399 #### [facility] [place] [address] Surgical Lead: Chava Ness MD Specific gravity (U) [Rel density] 1.008 Normal 1.001-1.035 [facility] Comment on above: Performed By: #### 1 0165, 6399 #### [facility] [address], [address] [place], [place] [address] Surgical Lead: Chava Ness MD SQUAMOUS EPITHELIAL CELLS NONE SEEN Normal < OR = 5 [facility] Comment on above: Performed By: #### 1 0165, 6399 #### [facility] [address], [address] [place], [place] [address] Surgical Lead: Chava Ness MD WBC (U) [#/Vol] /uL Abnormal < OR = 5 [facility] Comment on above: Performed By: #### 1 0165, 6399 #### [facility] [address], [address] [place] [address] Surgical Lead: Chava Ness MD VITAMIN D,25-OH,TOTAL,IAon 0 04-07-2022 VITAMIN D,25-OH,TOTAL,IA 52 ng/mL Normal 30-100 [facility] Comment on above: Result Comment: Mattie min D Status 25-OH Vitamin D: Deficiency: <20 ng/mL Insufficiency: 20 - 29 ng/mL Optimal: > or = 30 ng/mL For 25-OH Vitamin D testing on patients on D2-supplementation and patients for whom quantitation of D2 and D3 fractions is required, the QuestAssureD(TM) 25-OH VIT D, (D2,D3), LC/MS/MS is recommended: order code 32810 (patients >2yrs). See Note 1 Note 1 For additional information, please refer to http://education.VM6 Software.TeleDNA/faq/ZMY225 (This link is being provided for informational/ educational purposes only.) Performed By: #### 1 0165, 6399 #### [facility] [address], [address] [place], [place] [address] Surgical Lead: Chava Ness MD BASIC METABOLIC PANELon 12-0 Calcium [Mass/Vol] 9.4 mg/dL Normal 8.6-10.4 [facility] Comment on above: Performed By: #### 7 93, 5616, 14602, 88260, 6399 #### [facility] of [address], [address] [place] [address] Surgical Lead: Chava Ness MD Chloride [Moles/Vol] 105 mmol/L Normal 98-110 [facility] Comment on above: Performed By: #### 7 93, 5616, 26170, 78853, 6399 #### [facility] [place] [address] Surgical Lead: Chava Ness MD CO2 [Moles/Vol] 24 mmol/L Normal 20-32 [facility] Comment on above: Performed By: #### 7 93, 5616, 41044, 25025, 6399 #### [facility] [place] [address] Surgical Lead: Chava Ness MD Creatinine [Mass/Vol] 1.20 mg/dL High 0.60-0.93 [facility] Comment on above: Result Comment: For patients >49 years of age, the reference limit for Creatinine is approximately 13% higher for people identified as -Peruvian. Performed By: #### 7 93, 5616, 59819, 25622, 6399 #### [facility] [place] [address] Surgical Lead: Chava Ness MD eGFR NON-AFR. GUYANESE 43 mL/min/1.73m2 Low > OR = 60 [facility] Comment on above: Performed By: #### 7 93, 5616, 62345, 03553, 6399 #### [facility] [place] [address] Surgical Lead: Chava Ness MD GFR/1.73 sq M.predicted among blacks MDRD (S/P/Bld) [Vol rate/Area] 50 mL/min/{1.73_m2} Low > OR = 60 [facility] Comment on above: Performed By: #### 7 93, 5616, 74764, 13755, 6399 #### [facility] [place] [address] Surgical Lead: Chava Ness MD Glucose [Mass/Vol] 100 mg/dL High 65-99 [facility] Comment on above: Result Comment: Fasting reference interval For someone without known diabetes, a glucose value between 100 and 125 mg/dL is consistent with prediabetes and should be confirmed with a follow-up test. Performed By: #### 7 93, 5616, 66814, 40639, 6399 #### [facility] [place] [address] Surgical Lead: Chava Ness MD Potassium [Moles/Vol] 4.2 mmol/L Normal 3.5-5.3 [facility] Comment on above: Performed By: #### 7 93, 5616, 37335, 47901, 6399 #### [facility] [place] [address] Surgical Lead: Chava Ness MD Sodium [Moles/Vol] 138 mmol/L Normal 135-146 [facility] Comment on above: Performed By: #### 7 93, 5616, 08514, 99987, 6399 #### [facility] [place] [address] Surgical Lead: Chava Ness MD Urea nitrogen [Mass/Vol] 35 mg/dL High 7-25 [facility] Comment on above: Performed By: #### 7 93, 5616, 12112, 52637, 6399 #### [facility] [place] [address] Surgical Lead: Chava Ness MD Urea nitrogen/Creatinine [Mass ratio] 29 mg/mg High 6-22 [facility] Comment on above: Performed By: #### 7 93, 5616, 55005, 07413, 6399 #### [facility] [place] [address] Surgical Lead: Chava Ness MD CBC (INCLUDES DIFF/PLT)on Basophils (Bld) [#/Vol] 0.033 10*3/uL Normal 0-200 [facility] Comment on above: Performed By: #### 7 93, 5616, 64730, 98859, 6399 #### [facility] [place] [address] Surgical Lead: Chava Ness MD Basophils/100 WBC (Bld) 0.5 % Normal [facility] Comment on above: Performed By: #### 7 93, 5616, 02519, 22832, 6399 #### [facility] [place] [address] Surgical Lead: Chava Ness MD Eosinophils (Bld) [#/Vol] 0.111 10*3/uL Normal 15-500 [facility] Comment on above: Performed By: #### 7 93, 5616, 39715, 41460, 6399 #### [facility] [place] [address] Surgical Lead: Chava Ness MD Eosinophils/100 WBC (Bld) 1.7 % Normal [facility] Comment on above: Performed By: #### 7 93, 5616, 12649, 28699, 6399 #### [facility] [place] [address] Surgical Lead: Chava eNss MD Erythrocyte distribution width (RBC) [Ratio] 14.9 % Normal 11.0-15.0 [facility] Comment on above: Performed By: #### 7 93, 5616, 40276, 26108, 6399 #### [facility] [place] [address] Surgical Lead: Chava Ness MD Hematocrit (Bld) [Volume fraction] 30.0 % Low 35.0-45.0 [facility] Comment on above: Performed By: #### 7 93, 5616, 53459, 29754, 6399 #### [facility] [place] [address] Surgical Lead: Chava Ness MD Hemoglobin (Bld) [Mass/Vol] 9.2 g/dL Low 11.7-15.5 [facility] Comment on above: Performed By: #### 7 93, 5616, 98506, 00040, 6399 #### [facility] [place] [address] Surgical Lead: Chava Ness MD Lymphocytes (Bld) [#/Vol] 0.995 10*3/uL Normal 850-3900 [facility] Comment on above: Performed By: #### 7 93, 5616, 69487, 13855, 6399 #### [facility] [place] [address] Surgical Lead: Chava Ness MD Lymphocytes/100 WBC (Bld) 15.3 % Normal [facility] Comment on above: Performed By: #### 7 93, 561, 36825, 69679, 6399 #### [facility] [place] [address] Surgical Lead: Chava Ness MD MCH (RBC) [Entitic mass] 26.3 pg Low 27.0-33.0 [facility] Comment on above: Performed By: #### 7 93, 561, 23233, 55814, 6399 #### [facility] [place] [address] Surgical Lead: Chava Ness MD MCHC (RBC) [Mass/Vol] 30.7 g/dL Low 32.0-36.0 [facility] Comment on above: Performed By: #### 7 93, 561, 09131, 13277, 6399 #### [facility] [place] [address] Surgical Lead: Chava Ness MD MCV (RBC) [Entitic vol] 85.7 fL Normal 80.0-100.0 [facility] Comment on above: Performed By: #### 7 93, 5616, 13460, 20987, 6399 #### [facility] of [place] [address] Surgical Lead: Chava Ness MD Monocytes (Bld) [#/Vol] 0.514 10*3/uL Normal 200-950 [facility] Comment on above: Performed By: #### 7 93, 5616, 58016, 90796, 6399 #### [facility] of [place] [address] Surgical Lead: Chava Ness MD Monocytes/100 WBC (Bld) 7.9 % Normal [facility] Comment on above: Performed By: #### 7 93, 5616, 15172, 57607, 6399 #### [facility] of [place] [address] Surgical Lead: Chava Ness MD Neutrophils (Bld) [#/Vol] 4.849 10*3/uL Normal 2585-7333 [facility] Comment on above: Performed By: #### 7 93, 561, 81586, 71471, 6399 #### [facility] of [place] [address] Surgical Lead: Chava Ness MD Neutrophils/100 WBC (Bld) 74.6 % Normal [facility] Comment on above: Performed By: #### 7 93, 5616, 37316, 04330, 6399 #### [facility] of [place] [address] Surgical Lead: Chava Ness MD Platelet mean volume (Bld) [Entitic vol] 9.7 fL Normal 7.5-12.5 [facility] Comment on above: Performed By: #### 7 93, 5616, 10276, 94272, 6399 #### [facility] of [place] [address] Surgical Lead: Chava Ness MD Platelets (Bld) [#/Vol] 342 10*3/uL Normal 140-400 [facility] Comment on above: Performed By: #### 7 93, 5616, 36385, 31196, 6399 #### [facility] of [place] [address] Surgical Lead: Chava Ness MD RBC (Bld) [#/Vol] 3.50 10*6/uL Low 3.80-5.10 [facility] Comment on above: Performed By: #### 7 93, 5616, 11228, 93352, 6399 #### [facility] of [place] [address] Surgical Lead: Chava Ness MD WBC (Bld) [#/Vol] 6.5 10*3/uL Normal 3.8-10.8 [facility] Comment on above: Performed By: #### 7 93, 5616, 94265, 45241, 6399 #### [facility] of [address], [address] [place] [address] Surgical Lead: Chava Ness MD IRON, TIBC AND FERRITIN [facility] 10-03-2021 % SATURATION 7 % (calc) Low 16-45 [facility] Comment on above: Performed By: #### 7 93, 5616, 17872, 82305, 6399 #### [facility] of [place] [address] Surgical Lead: Chava Ness MD Ferritin [Mass/Vol] 3 ng/mL Low 16-288 [facility] Comment on above: Performed By: #### 7 93, 5616, 96672, 22645, 6399 #### [facility] of [place] [address] Surgical Lead: Chava Ness MD IRON BINDING CAPACITY 463 mcg/dL (calc) High 250-450 [facility] Comment on above: Performed By: #### 7 93, 5616, 97386, 99041, 6399 #### [facility] of [place] [address] Surgical Lead: Chava Ness MD IRON, TOTAL 33 mcg/dL Low 45-160 [facility] Comment on above: Performed By: #### 7 93, 5616, 86351, 49311, 6399 #### [facility] of [place] [address] Surgical Lead: Chava Ness MD RETICULOCYTE COUNT 021 RETICULOCYTE COUNT, AUTOMATED 2.7 % Normal [facility] Comment on above: Performed By: #### 7 93, 5616, 59550, 06751, 6399 #### [facility] of [place] [address] Surgical Lead: Chava Ness MD RETICULOCYTE, ABSOLUTE 80614 cells/uL High 80101-03544 [facility] Comment on above: Performed By: #### 7 93, 5616, 25927, 29824, 6399 #### [facility] of [place] [address] Surgical Lead: Chava Ness MD TSH W/REFLEX TO FT4on 2020 TSH W/REFLEX TO FT4 1.88 mIU/L Normal 0.40-4.50 [facility] Comment on above: Performed By: #### 1 0165, 6399 #### [facility] of [place] [address] Surgical Lead: Chava Ness MD VITAMIN B12on 10-03-2021 Cobalamin (Vitamin B12) [Mass/Vol] 497 pg/mL Normal 200-1100 [facility] Comment on above: Performed By: #### 7 93, 5616, 20282, 85274, 6399 #### [facility] of [place] [address] Surgical Lead: Chava Ness MD BASIC METABOLIC PANELon 11-2 Calcium [Mass/Vol] 9.1 mg/dL Normal 8.6-10.4 [facility] Comment on above: Performed By: #### 1 0165, 6399 #### [facility] of [place] [address] Surgical Lead: Chava Ness MD Chloride [Moles/Vol] 107 mmol/L Normal 98-110 [facility] Comment on above: Performed By: #### 1 016, 6399 #### [facility] of [place] [address] Surgical Lead: Chava Ness MD CO2 [Moles/Vol] 23 mmol/L Normal 20-32 [facility] Comment on above: Performed By: #### 1 0165, 6399 #### [facility] [address], [address] [place] [address] Surgical Lead: Chava Ness MD Creatinine [Mass/Vol] 1.62 mg/dL High 0.60-0.93 [facility] Comment on above: Result Comment: For patients >49 years of age, the reference limit for Creatinine is approximately 13% higher for people identified as -Peruvian. Performed By: #### 1 0165, 6399 #### [facility] [address], [address] [place] [address] Surgical Lead: Chava Ness MD eGFR NON-AFR. GUYANESE 30 mL/min/1.73m2 Low > OR = 60 [facility] Comment on above: Performed By: #### 1 0165, 6399 #### [facility] [address], [address] [place] [address] Surgical Lead: Chava Ness MD GFR/1.73 sq M.predicted among blacks MDRD (S/P/Bld) [Vol rate/Area] 35 mL/min/{1.73_m2} Low > OR = 60 [facility] Comment on above: Performed By: #### 1 0165, 6399 #### [facility] [address], [address] [place] [address] Surgical Lead: Chava Ness MD Glucose [Mass/Vol] 100 mg/dL High 65-99 [facility] Comment on above: Result Comment: Fasting reference interval For someone without known diabetes, a glucose value between 100 and 125 mg/dL is consistent with prediabetes and should be confirmed with a follow-up test. Performed By: #### 1 0165, 6399 #### [facility] [address], [address] [place] [address] Surgical Lead: Chava Ness MD Potassium [Moles/Vol] 4.3 mmol/L Normal 3.5-5.3 [facility] Comment on above: Performed By: #### 1 0165, 6399 #### [facility] of [address], [address] [place] [address] Surgical Lead: Chava Ness MD Sodium [Moles/Vol] 139 mmol/L Normal 135-146 [facility] Comment on above: Performed By: #### 1 0165, 6399 #### [facility] of [address], [address] [place] [address] Surgical Lead: Chava Ness MD Urea nitrogen [Mass/Vol] 37 mg/dL High 7-25 [facility] Comment on above: Performed By: #### 1 0165, 6399 #### [facility] of [place] [address] Surgical Lead: Chava Ness MD Urea nitrogen/Creatinine [Mass ratio] 23 mg/mg High 6-22 [facility] Comment on above: Performed By: #### 1 0165, 6399 #### [facility] of [place] [address] Surgical Lead: Chava Ness MD CBC (INCLUDES DIFF/PLT)on Basophils (Bld) [#/Vol] 0.028 10*3/uL Normal 0-200 [facility] Comment on above: Performed By: #### 1 0165, 6399 #### [facility] of [place] [address] Surgical Lead: Chava Ness MD Basophils/100 WBC (Bld) 0.5 % Normal [facility] Comment on above: Performed By: #### 1 0165, 6399 #### [facility] of [place] [address] Surgical Lead: Chava Ness MD Eosinophils (Bld) [#/Vol] 0.132 10*3/uL Normal 15-500 [facility] Comment on above: Performed By: #### 1 0165, 6399 #### [facility] of [place] [address] Surgical Lead: Chava Ness MD Eosinophils/100 WBC (Bld) 2.4 % Normal [facility] Comment on above: Performed By: #### 1 0165, 6399 #### [facility] of [place] [address] Surgical Lead: Chava Ness MD Erythrocyte distribution width (RBC) [Ratio] 14.5 % Normal 11.0-15.0 [facility] Comment on above: Performed By: #### 1 0165, 6399 #### [facility] of [place] [address] Surgical Lead: Chava Ness MD Hematocrit (Bld) [Volume fraction] 29.4 % Low 35.0-45.0 [facility] Comment on above: Performed By: #### 1 0165, 6399 #### [facility] [place] [address] Surgical Lead: Chava Ness MD Hemoglobin (Bld) [Mass/Vol] 9.2 g/dL Low 11.7-15.5 [facility] Comment on above: Performed By: #### 1 0165, 6399 #### [facility] [place] [address] Surgical Lead: Chava Ness MD Lymphocytes (Bld) [#/Vol] 1.612 10*3/uL Normal 850-3900 [facility] Comment on above: Performed By: #### 1 0165, 6399 #### [facility] of [place] [address] Surgical Lead: Chava Ness MD Lymphocytes/100 WBC (Bld) 29.3 % Normal [facility] Comment on above: Performed By: #### 1 0165, 6399 #### [facility] of [place] [address] Surgical Lead: Chava Ness MD MCH (RBC) [Entitic mass] 26.4 pg Low 27.0-33.0 [facility] Comment on above: Performed By: #### 1 0165, 6399 #### [facility] of [place] [address] Surgical Lead: Chava Ness MD MCHC (RBC) [Mass/Vol] 31.3 g/dL Low 32.0-36.0 [facility] Comment on above: Performed By: #### 1 0165, 6399 #### [facility] of [place] [address] Surgical Lead: Chava Ness MD MCV (RBC) [Entitic vol] 84.5 fL Normal 80.0-100.0 [facility] Comment on above: Performed By: #### 1 0165, 6399 #### [facility] of [place] [address] Surgical Lead: Chava Ness MD Monocytes (Bld) [#/Vol] 0.55 10*3/uL Normal 200-950 [facility] Comment on above: Performed By: #### 1 0165, 6399 #### [facility] of [place] [address] Surgical Lead: Chava Ness MD Monocytes/100 WBC (Bld) 10.0 % Normal [facility] Comment on above: Performed By: #### 1 0165, 6399 #### [facility] of [place] [address] Surgical Lead: Chava Ness MD Neutrophils (Bld) [#/Vol] 3.179 10*3/uL Normal 5831-8870 [facility] Comment on above: Performed By: #### 1 0165, 6399 #### [facility] of [place] [address] Surgical Lead: Chava Ness MD Neutrophils/100 WBC (Bld) 57.8 % Normal [facility] Comment on above: Performed By: #### 1 0165, 6399 #### [facility] of [place] [address] Surgical Lead: Chava Ness MD Platelet mean volume (Bld) [Entitic vol] 9.8 fL Normal 7.5-12.5 [facility] Comment on above: Performed By: #### 1 0165, 6399 #### [facility] of [place] [address] Surgical Lead: Chava Ness MD Platelets (Bld) [#/Vol] 327 10*3/uL Normal 140-400 [facility] Comment on above: Performed By: #### 1 0165, 6399 #### [facility] of [address], [address] [place] [address] Surgical Lead: Chava Ness MD RBC (Bld) [#/Vol] 3.48 10*6/uL Low 3.80-5.10 [facility] Comment on above: Performed By: #### 1 0165, 6399 #### [facility] of [place] [address] Surgical Lead: Chava Ness MD WBC (Bld) [#/Vol] 5.5 10*3/uL Normal 3.8-10.8 [facility] Comment on above: Performed By: #### 1 0165, 6399 #### [facility] of [place] [address] Surgical Lead: Chava Ness MD [facility] METABOLIC [facility] 08-03-2021 Albumin [Mass/Vol] 4.3 g/dL Normal 3.6-5.1 [facility] Comment on above: Performed By: #### 7 600, 10862 #### [facility] of [place] [address] Surgical Lead: Chava Ness MD Albumin/Globulin [Mass ratio] 1.5 {ratio} Normal 1.0-2.5 [facility] Comment on above: Performed By: #### 7 600, 20786 #### [facility] of [place] [address] Surgical Lead: Chava Ness MD ALP [Catalytic activity/Vol] 43 U/L Normal 37-153 [facility] Comment on above: Performed By: #### 7 600, 78999 #### [facility] of [address], [address] [place] [address] Surgical Lead: Chava Ness MD ALT [Catalytic activity/Vol] 15 U/L Normal 6-29 [facility] Comment on above: Performed By: #### 7 600, 80947 #### [facility] of [address], [address] [place] [address] Surgical Lead: Chava Ness MD AST [Catalytic activity/Vol] 16 U/L Normal 10-35 [facility] Comment on above: Performed By: #### 7 600, 84304 #### [facility] of [address], [address] [place] [address] Surgical Lead: Chava Ness MD Bilirubin [Mass/Vol] 0.6 mg/dL Normal 0.2-1.2 [facility] Comment on above: Performed By: #### 7 600, 12145 #### [facility] of [address], [address] [place] [address] Surgical Lead: Chava Ness MD Calcium [Mass/Vol] 9.7 mg/dL Normal 8.6-10.4 [facility] Comment on above: Performed By: #### 7 600, 74312 #### [facility] of [address], [address] [place] [address] Surgical Lead: Chava Ness MD Chloride [Moles/Vol] 105 mmol/L Normal 98-110 [facility] Comment on above: Performed By: #### 7 600, 62802 #### [facility] of [address], [address] [place] [address] Surgical Lead: Chava Ness MD CO2 [Moles/Vol] 23 mmol/L Normal 20-32 [facility] Comment on above: Performed By: #### 7 600, 74136 #### [facility] of [address], [address] [place] [address] Surgical Lead: Chava Ness MD Creatinine [Mass/Vol] 1.10 mg/dL High 0.60-0.93 [facility] Comment on above: Result Comment: For patients >49 years of age, the reference limit for Creatinine is approximately 13% higher for people identified as -Peruvian. Performed By: #### 7 600, 70454 #### [facility] [place] [address] Surgical Lead: Chava Ness MD eGFR NON-AFR. GUYANESE 48 mL/min/1.73m2 Low > OR = 60 [facility] Comment on above: Performed By: #### 7 600, 86805 #### [facility] [place] [address] Surgical Lead: Chava Ness MD GFR/1.73 sq M.predicted among blacks MDRD (S/P/Bld) [Vol rate/Area] 56 mL/min/{1.73_m2} Low > OR = 60 [facility] Comment on above: Performed By: #### 7 600, 94665 #### [facility] [place] [address] Surgical Lead: Chava Ness MD Globulin (S) [Mass/Vol] 2.9 g/dL Normal 1.9-3.7 [facility] Comment on above: Performed By: #### 7 600, 01721 #### [facility] [place] [address] Surgical Lead: Chava Ness MD Glucose [Mass/Vol] 118 mg/dL High 65-99 [facility] Comment on above: Result Comment: Fasting reference interval For someone without known diabetes, a glucose value between 100 and 125 mg/dL is consistent with prediabetes and should be confirmed with a follow-up test. Performed By: #### 7 600, 48704 #### [facility] [place] [address] Surgical Lead: Chava Ness MD Potassium [Moles/Vol] 4.8 mmol/L Normal 3.5-5.3 [facility] Comment on above: Performed By: #### 7 600, 90867 #### [facility] of [address], [address] [place] [address] Surgical Lead: Chava Ness MD Protein [Mass/Vol] 7.2 g/dL Normal 6.1-8.1 [facility] Comment on above: Performed By: #### 7 600, 97395 #### [facility] of [address], [address] [place] [address] Surgical Lead: Chava Ness MD Sodium [Moles/Vol] 139 mmol/L Normal 135-146 [facility] Comment on above: Performed By: #### 7 600, 14814 #### [facility] of [address], [address] [place] [address] Surgical Lead: Chava Ness MD Urea nitrogen [Mass/Vol] 24 mg/dL Normal 7-25 [facility] Comment on above: Performed By: #### 7 600, 71322 #### [facility] of [address], [address] [place] [address] Surgical Lead: Chava Ness MD Urea nitrogen/Creatinine [Mass ratio] 22 mg/mg Normal 6-22 [facility] Comment on above: Performed By: #### 7 600, 66377 #### [facility] of [address], [address] [place] [address] Surgical Lead: Chava Ness MD LIPID PANEL, [address] Cholesterol [Mass/Vol] 163 mg/dL Normal <200 [facility] Comment on above: Order Comment: FASTI NG:YES FASTING: YES Performed By: #### 7 600, 89843 #### [facility] of [address], [address] [place] [address] Surgical Lead: Chava Ness MD Cholesterol in HDL [Mass/Vol] 51 mg/dL Normal > OR = 50 [facility] Comment on above: Order Comment: FASTI NG:YES FASTING: YES Performed By: #### 7 600, 09882 #### [facility] of [address], [address] [place] [address] Surgical Lead: Chava Ness MD Cholesterol in LDL [Mass/Vol] 77 mg/dL Normal [facility] Comment on above: Order Comment: FASTI NG:YES FASTING: YES Result Comment: Refe rence range: <100 Desirable range <100 mg/dL for primary prevention; <70 mg/dL for patients with CHD or diabetic patients with > or = 2 CHD risk factors. LDL-C is now calculated using the Vince calculation, which is a validated novel method providing better accuracy than the Friedewald equation in the estimation of LDL-C. Boni SS et al. VARSHA. 2013;310(19): 2890-1191 (http://education.Tagoo/faq/PGP333) Performed By: #### 7 600, 88199 #### [facility] [address], [address] [place] [address] Surgical Lead: Chava Ness MD Cholesterol.total/Ch olesterol in HDL [Mass ratio] 3.2 {ratio} Normal <5.0 [facility] Comment on above: Order Comment: FASTI NG:YES FASTING: YES Performed By: #### 7 600, 37537 #### [facility] [address], [address] [place], [place] [address] Surgical Lead: Chava Ness MD NON HDL CHOLESTEROL 112 mg/dL (calc) Normal <130 [facility] Comment on above: Order Comment: FASTI NG:YES FASTING: YES Result Comment: For patients with diabetes plus 1 major ASCVD risk factor, treating to a non-HDL-C goal of <100 mg/dL (LDL-C of <70 mg/dL) is considered a therapeutic option. Performed By: #### 7 600, 62779 #### [facility] [address], [address] [place], [place] [address] Surgical Lead: Chava Ness MD Triglyceride [Mass/Vol] 269 mg/dL High <150 [facility] Comment on above: Order Comment: FASTI NG:YES FASTING: YES Result Comment: If a non-fasting specimen was collected, consider repeat triglyceride testing on a fasting specimen if clinically indicated. Clint et al. J. of Clin. Lipidol. 2015;9:129-169. Performed By: #### 7 600, 82435 #### [facility] [address] [facility], [address] [place] [address] Surgical Lead: Chava Ness MD Vital Signs Date Time Vital Sign Value Performing Clinician Facility 12-12-2023 15:21-0500 Body height 167.6 cm Lenard Ortiz DO Work Phone: [employer] 12-12-2023 15:21-0500 Body mass index (BMI) [Ratio] 21.24 kg/m2 [facility] 12-12-2023 15:21-0500 Body temperature 97.39 [degF] Lenard Ortiz [employer] Work Phone: [facility] 12-12-2023 15:21-0500 Body weight 59.69 kg Lenard Ortiz [employer] Work Phone: [facility] 12-12-2023 15:21-0500 SaO2% (BldA) [Mass fraction] 94 % Lenard HernandezMcAfeebrianna [employer] Work Phone[facility] Encounters Encounter Date Encounter Type Care Provider Facility Start: 12-13-2023 End: 12-14-2023 ambulatory LENARD Talita [facility] Start: 12-12-2023 End: 12-12-2023 ambulatory [facility] Start: 12-12-2023 End: 12-12-2023 Office outpatient visit 25 minutes Lenard Ortiz DO Work Phone: [facility] Comment on above: Orthostatic hypotens ion (Primary Dx); Hypertensive kidney disease with stage 3a chronic kidney disease ([facility]); Essential hypertension; Iron deficiency anemia, unspecified iron deficiency anemia type; Essential (primary) hypertension Start: 12-05-2023 Telephone encounter Lenard powers DO Work Phone: [facility] Start: 11-12-2023 End: 11-13-2023 ambulatory LENARD G [facility] Start: 11-12-2023 End: 11-12-[facility] Start: 09-12-2022 End: 09-13-[address] LENARD ORTIZ Facility:[facility]1 Procedures Date Procedure Procedure Detail Performing Clinician Start: 12-12-2023 Adult depression screening assessment Lenard Ortiz DO Work Phone: Start: 11-12-2023 Adult depression screening assessment Lenard Ortiz DO Work Phone: Plan of Treatment Date Care Activity Detail Author Start: 09-12-2027 DTaP,Tdap and Td Vaccines (2 - Td or Tdap) DTaP,Tdap and Td Vaccines (2 - Td or Tdap) [facility] Start: 12-12-2024 Adult BMI Screening Adult BMI Screening [facility] Start: 12-12-2024 Depression Screening Depression Screening [facility] Start: 12-12-2024 Fall Risk Screening Fall Risk Screening [facility] Start: 12-12-2024 Tobacco Screening Tobacco Screening [facility] Start: 11-12-2024 Adult BMI Screening Adult BMI Screening [facility] Start: 11-12-2024 Depression Screening Depression Screening [facility] Start: 11-12-2024 Fall Risk Screening Fall Risk Screening [facility] Start: 11-12-2024 Tobacco Screening Tobacco Screening [facility] Start: 05-12-2024 End: 05-12-2024 Patient encounter procedure 05/12/2024 2:00 PM EDT Office Visit [facility] [address] [place] [address] Lenard Ortiz DO [address] [place] [address] [facility] Start: 04-28-2024 End: 04-28-2024 Patient encounter procedure 04/28/2024 4:00 PM EDT Office Visit [facility] [address] [place] [id number] [facility] Start: 04-23-2024 Medicare Annual Wellness Visit Medicare Annual Wellness Visit [facility] Start: 06-28-2023 COVID-19 Vaccine ( season) COVID-19 Vaccine ( season) [facility] Start: 1964 Administration of varicella zoster vaccine Zoster (Shingles) Vaccine (1 of 2) [facility] Immunizations Immunization Date Immunization Notes Care Provider Fa cili 08-27-2022 Influenza, High-dose , Quadrivalent Lenard Furlong DO Work Phone: [facility] 08-25-2021 influenza, seasonal, injectable Lenard Furlong DO Work Phone: [facility] 08-15-2021 Influenza, High-dose , Quadrivalent Lenard Furlong DO Work Phone: [facility] 07-25-2020 influenza, injectabl e, quadrivalent, contains preservative Lenard Furlong DO Work Phone: [facility] 2019 influenza, high dose seasonal, preservative-free Lenard Furlong DO Work Phone: [facility] 07-11-2019 influenza, high dose seasonal, preservative-free Lenard Furlong DO Work Phone: [facility] 08-08-2018 influenza, high dose seasonal, preservative-free Lenard Furlong DO Work Phone: [facility] 09-12-2017 tetanus toxoid, redu aniya diphtheria toxoid, and acellular pertussis vaccine, adsorbed Lenard Furlong DO Work Phone: [facility] 07-28-2017 influenza virus vacc ine, unspecified formulation Lenard Furlong DO Work Phone: [facility] 08-03-2016 influenza, high dose seasonal, preservative-free Lenard Furlong DO Work Phone: [facility] 08-06-2015 influenza, high dose seasonal, preservative-free Lenard Ortiz DO Work Phone: [facility] 08-06-2015 pneumococcal conjuga te vaccine, 13 valent Lenard Ortiz DO Work Phone: [facility] 08-31-2008 pneumococcal polysaccharide vaccine, 23 valent Lenard Ortiz DO Work Phone: [facility] 08-13-2007 influenza virus vacc ine, whole virus Lenard Ortiz DO Work Phone: [facility] Payers Date Payer Category Payer Medicare [employer] [id number] 2023-[facility] [phone] [address] [place] [address] [id number] 2023 Medicare [id number] 1961 Medicare [id number] 1945 Unknown [id number] 1943 Unknown [id number] 1943 Unknown [id number] 1943 Unknown [id number] 1943 Unknown [id number] Social History Date Type Detail Facility Start: 04-08-2023 Tobacco smoking stat [facility] Ex-smoker [facility] End: 04-11-1997 History of tobacco use Current smoker [facility] End: 04-11-1997 History of tobacco use Cigarette Smoker [facility] Start: 10-04-2022 End: 04-08-2023 Cigarettes smoked current (pack per day) - Reported 1 [facility] History of tobacco use Passive smoker [facility] Start: 04-08-2023 Tobacco use and exposure Smoke less tobacco non-user [facility] Start: 11-12-2023 End: 12-12-2023 Alcohol intake Current non-drinker of alcohol (finding) [facility] Start: 10-04-2022 End: 11-12-[address] [facility] [employer] [facility] Has the [employer], or [employer] threatened to shut off services in your home in past 12Mo No [facility] Do you belong to any clubs or organizations such as muslim groups, unions, fraternal or athletic groups, or school groups? Yes [facility] Are you now , , , , never or living with a partner? [facility] How often to you hav e a drink containing alcohol? Monthly or less [facility] How many standard dr inks containing alcohol do you have on a typical day? 1 or [address] [facility] How often do you hav e 6 or more drinks on 1 occasion? Never [facility] How hard is it for y ou to pay for the very basics like food, housing, medical care, and heating Not hard at all [facility] Do you feel stress - tense, restless, nervous, or anxious, or unable to sleep at night because your mind is troubled all the time - these days [OSQ] Only a little [facility] Start: 1945 Sex Assigned At Not on file [facility] History of Present illness Narrative 12-12-2023 Lenard Ortiz, DO - 12/12/2023 3:20 PM EST Note Date & Type Note Facility 12-12-2023 History of Present illness Narrative Subjective Patient ID: Shelley Hutchison is a 78 y.o. female. Shelley presents for dizzy spells. They occur when she gets up. It started about a week ago. It is a lightheaded feeling. She has been taking her medications and has not started any new medications. She takes iron for history of iron deficiency anemia. She has had diarrhea since Saturday. She was going 5-6 times a day but it is getting better. She is usually constipated. She drinks a lot of water everyday. She still has shortness of breath but the inhaler is helping. She has a BP cuff at home but she hasn't been using it. Dizziness This is a recurrent problem. The current episode started in the past 7 days. The problem occurs daily. The problem has been unchanged. The symptoms are aggravated by standing. She has tried nothing (resolves on its own) for the symptoms. Back Pain Diarrhea Shortness of Breath The following portions of the patient's history were reviewed and updated as appropriate: allergies, current medications, past family history, past medical history, past social history, past surgical history, problem list, and medication reconciliation was completed including current medication and post discharge medication. Review of Systems Constitutional: Negative. HENT: Negative. Eyes: Negative. Respiratory: Positive for shortness of breath. Gastrointestinal: Positive for diarrhea. Endocrine: Negative. Genitourinary: Negative. Musculoskeletal: Positive for back pain. Neurological: Positive for dizziness. Hematological: Negative. Psychiatric/Behavioral: Negative. Objective Physical Exam Vitals reviewed. Exam conducted with a screener and blender operator present (daughter). Constitutional: General: She is not in acute distress. Appearance: She is normal weight. She is not ill-appearing. HENT: Head: Normocephalic. Cardiovascular: Rate and Rhythm: Normal rate and regular rhythm. Pulses: Normal pulses. Heart sounds: Normal heart sounds. No murmur heard. Pulmonary: Effort: Pulmonary effort is normal. No respiratory distress. Breath sounds: Normal breath sounds. No wheezing, rhonchi or rales. Abdominal: General: Bowel sounds are normal. Palpations: Abdomen is soft. Tenderness: There is no abdominal tenderness. Musculoskeletal: Cervical back: Neck supple. Right lower leg: No edema. Left lower leg: No edema. Skin: General: Skin is warm. Capillary Refill: Capillary refill takes less than 2 seconds. Coloration: Skin is not ashen or pale. Neurological: General: No focal deficit present. Mental Status: She is alert and oriented to person, place, and time. Psychiatric: Mood and Affect: Mood normal. Behavior: Behavior normal. Thought Content: Thought content normal. Judgment: Judgment normal. Assessment/Plan Shelley was seen today for dizziness, back pain, diarrhea and shortness of breath. Diagnoses and all orders for this visit: Orthostatic hypotension Decrease losartan 100 mg to 1/2 tablet daily. Monitor BP and if it is still low or if dizziness persists in 2-3 days then stop it altogether. If she has syncope then go to ER. Hypertensive kidney disease with stage 3a chronic kidney disease ([facility]) - Basic Metabolic Panel; Future Check BMP Essential hypertension - Basic Metabolic Panel; Future Iron deficiency anemia, unspecified iron deficiency anemia type - CBC; Future - Iron and TIBC; Future Check CBC, Fe_ and TIBC Essential (primary) hypertension - losartan (COZAAR) 100 mg tablet; Take 0.5 tablets (50 mg total) by mouth in the morning. Decrease losartan to 50 mg daily documented in this encounter [facility] Evaluation note 12-12-2023 Note Date & Type Note Facility 12-12-2023 Evaluation note Diagnosis Orthostatic hypotension- Primary Hypertensive kidney disease with stage 3a chronic kidney disease ([facility]) Essential hypertension Unspecified essential hypertension Iron deficiency anemia, unspecified iron deficiency anemia type Essential (primary) hypertension Unspecified essential hypertension documented in this encounter [facility] Note 12-05-2023 Telephone Encounter - Meenakshi Brock - 12/05/2023 8:46 AM ESTTelephone Encounter - Lenard Ortiz DO - 12/05/2023 8:46 AM ESTTelephone Encounter - Meenakshi Brock - 12/05/2023 8:46 AM EST Note Date & Type Note Facility 12-05-2023 Miscellaneous Notes Formattin g of this note might be different from the original. The patients daughter Dee called inquiring about Mary breathing issues. She wonders if she would be a good candidate for a low-dose MRI. Please advise. She probably means low-dose CT scan but she does not qualify. She quit smoking too long ago to qualify. She asked to have quit within the last 15 years and she quit in 1996 Patient contact Dee notified of provider response documented in this encounter [employer] [facility] Telephone encounter Note 12-05-2023 Telephone Encounter - Meenakshi Brock - 12/05/2023 8:46 AM EST Note Date & Type Note Facility 12-05-2023 Telephone encount er Note The patients daughter Dee called inquiring about Sharons breathing issues. She wonders if she would be a good candidate for a low-dose MRI. Please advise. [facility] Telephone encounter Note 12-05-2023 Telephone Encounter - Lenard Ortiz DO - 12/05/2023 8:46 AM EST Note Date & Type Note Facility 12-05-2023 Telephone encount er Note She probably means low-dose CT scan but she does not qualify. She quit smoking too long ago to qualify. She asked to have quit within the last 15 years and she [facility] in 1996 [facility] 12-05-2023 Telephone Encounter - Meenakshi Brock - 12/05/2023 8:46 AM EST Note Date & Type Note Facility 12-05-2023 Telephone encount er Note Patient contact Dee notified of provider response [facility] Instructions Note Date & Type Note Facility Instructions Not on filedocumented in this en counter [facility] Instructions Note Date & Type Note Facility Instructions Not on filedocumented in this en counter [facility] Summary Purpose Family History No Family History Records FoundNo Family History Records FoundNo Family History Records FoundNo Family History Records Found Advance Directives No Advanced Directives Records FoundNo Advanced Directives Records FoundNo Advanced Directives Records FoundNo Advanced Directives Records Found Additional Source Comments INFORMATION SOURCE (unrecogn ized section and content) DATE CREATED AUTHOR 06/24/2022 [facility] DATE CREATED AUTHOR AUTHOR'S ORGANIZ ATION 09/15/2022 [facility] DATE CREATED AUTHOR AUTHOR'S ORGANIZ ATION 12/14/2023 [facility] DATE CREATED AUTHOR AUTHOR'S ORGANIZ ATION 12/14/2023 [facility] Care Teams (unrecognized sec tion and content) Perinatal Instructor Relationship Specialty Start Date End Date Lenard Ortiz DO [address], [place] [address] PCP - General Family Medicine 04/11/17 Perinatal Instructor Relationship Specialty Start Date End Date Lenard Ortiz DO [address], [place] [address] PCP - General Family Medicine 04/11/17 Reason for Visit (unrecogniz ed section and content) Reason Comments Dizziness Back Pain Diarrhea Shortness of Breath Needs to sit down FOR RECORDS PERTAINING TO PATIENTS WHO ARE OR HAVE BEEN ENROLLED IN A CHEMICAL DEPENDENCY/SUBSTANCEABUSE PROGRAM, SOME INFORMATION MAY BE OMITTED. This clinical summary was aggregated from multiple sources. Caution should be exercised in using it in the provision of clinical care. This summary normalizes information from multiple sources, and as a consequence, information in this document may materially change the coding, format and clinical context of patient data. In addition, data may be omitted in some cases. CLINICAL DECISIONS SHOULD BE BASED ON THE PRIMARY CLINICAL RECORDS. [facility]. provides no warranty or guarantee of the accuracy or completeness of information in this document.
[2024-04-01 10:07] LABS: Basophils Percent Auto 0.5 % (0.2-2.0); Eosinophils Absolute Auto 0.1 10^3/uL (0.0-0.7); Eosinophils Percent Auto 1.7 % (0.9-7.0); Hematocrit 35.9 % (36.0-48.0); Hemoglobin 11.9 g/dL (12.0-16.0); Immature Granulocytes Abs Auto 0.01 10^3/uL (0.00-0.03); Immature Granulocytes Pct Auto 0.2 % (0.0-0.5); Lymphocytes Absolute Auto 1.4 10^3/uL (1.2-3.8); Lymphocytes Percent Auto 22.3 % (20.5-60.0); Mean Corpuscular HGB Conc 33.1 g/dL (29.9-35.2); Mean Corpuscular Hemoglobin 32.1 pg (26.7-34.0); Mean Corpuscular Volume 96.8 fL (81.0-99.0); Mean Platelet Volume 9.1 fL (9.5-13.5); Monocytes Absolute Auto 0.4 10^3/uL (0.3-0.8); Monocytes Percent Auto 6.2 % (1.7-12.0); Neutrophils Absolute Auto 4.4 10^3/uL (1.4-6.5); Neutrophils Percent Auto 69.1 % (43.0-75.0); Platelet Count 236 10^3/uL (150-450); Red Blood Count 3.71 10^6/uL (4.20-5.40); Red Cell Distribution Width 13.6 % (11.0-15.0); White Blood Count 6.3 10^3/uL (4.0-11.0)
[2024-04-01 10:20] LABS: INR 0.97; Prothrombin Time 10.3 sec (9.0-11.6)
[2024-04-01 10:24] LABS: Alanine Aminotransferase 22 U/L (14-59); Albumin Globulin Ratio 0.8; Albumin Level 3.4 g/dL (3.4-5.0); Alkaline Phosphatase 57 U/L (46-116); Aspartate Amino Transferase 22 U/L (15-37); BUN Creatinine Ratio 22.4; Bilirubin Total 0.5 mg/dL (0.2-1.0); Chloride 104 mmol/L (98-107); Estimated GFR (African America 60 (>=60); Estimated GFR (Non-African Ame 49 (>=60); Globulin 4.1 g/dL; Glucose 204 mg/dL (74-106); Sodium 140 mmol/L (136-145); Total Protein 7.5 g/dL (6.4-8.2)
[2024-04-01 10:26] LABS: Troponin I High Sensitivity 48.4 pg/mL (4.0-51.3)
--- NOTE | 2024-04-01 10:38 | ED_ITS ---
HPI - Chest Pain General Chief Complaint: Chest Pain Stated Complaint: CHEST PAIN, HIGH BLOOD PRESSURE Time Seen by Provider: 04/01/24 09:46 Source: patient Mode of arrival: Wheelchair Limitations: no limitations History of Present Illness HPI narrative: The patient present to us with a feeling of chest discomfort that she had this morning, she mentioned that she was awake when she started having some chest discomfort all over the chest and associated with numbness and tingling in her upper and lower extremity that is coming and going, the pain is not constant and she did not refer to it as the pain she mentioned that is more of a discomfort and funny feeling, there was some nausea feeling with that, no vomiting and the patient mentioned that she last ate sloppy Hank yesterday. The patient denies any diarrhea or constipation, it was noted that the patient also has some tremors in her upper extremities , it was noted also that the patient just lost her daughter Saturday which is 4 days ago. Related Data Home Medications ?Medication ?Instructions ?Recorded ?Confirmed losartan 100 mg tablet 100 mg PO DAILY 09/27/23 09/27/23 meloxicam 15 mg tablet 15 mg PO DAILY PRN pain 09/27/23 09/27/23 potassium chloride 10 mEq 10 meq PO DAILY 09/27/23 09/27/23 tablet,extended release(part/cryst) rosuvastatin 40 mg tablet 40 mg PO DAILY 09/27/23 09/27/23 umeclidinium 62.5 mcg-vilanterol 1 inh inhalation Q24H 09/27/23 09/27/23 25 mcg/actuation powdr for inhalation (Anoro Ellipta) Previous Rx's ?Medication ?Instructions ?Recorded acyclovir 800 mg tablet 800 mg PO Q4H #35 tabs 09/27/23 hydrocodone 5 mg-acetaminophen 325 1 tab PO Q8H PRN severe pain #10 09/27/23 mg tablet tabs prednisone 20 mg tablet 20 mg PO DAILY #11 tabs 09/27/23 famotidine 20 mg tablet (Pepcid) 20 mg PO BID #10 tabs 04/01/24 Allergies Allergy/AdvReac Type Severity Reaction Status Date / Time No Known Drug Allergies Allergy Verified 04/01/24 09:47 Review of Systems ROS Status of ROS 10 or more systems reviewed and unremark able except as noted in history and below Exam Narrative Exam Narrative: Nurses notes and vital signs reviewed and patient is not hypoxic. General: Well-appearing and in no apparent distress. Skin: Warm, dry, no pallor noted. No rash. Head: Normocephalic, atraumatic. Neck: Supple, non-tender. Eye: Pupils are equal, round and EOMI. No scleral icterus. Ears, Nose, Mouth, and Throat: TM are clear, no nasal mucosal hypertrophy. Oral mucosa is moist, no posterior oropharynx erythema, uvula is mid-line Cardiovascular: Regular Rate and Rhythm without murmur, gallop or rub. Respiratory: No accessory muscle use or respiratory distress. Lungs are clear to auscultation, no wheezing, rales or rhonchi Chest Wall: no tenderness Back: No midline thoracic or lumbar vertebral tenderness. No CVA tenderness Musculoskeletal: normal ROM, no calf or popliteal tenderness, no lower extremity edema/swelling GI: Abdomen is soft, non-distended. Normal bowel sounds. No masses appreciated. No tenderness to palpation. No rebound, guarding, or rigidity noted. Neurological: A&O x4. No cranial nerve dysfunction observed. No truncal ataxia. Moves all extremities. Sensation intact. The patient does have some tremors Psychiatric: Cooperative and interactive. Normal mood and affect. Constitutional Vital Signs, click to edit/add: Last Vital Signs Temp 98.5 F 04/01/24 09:44 Pulse 83 04/01/24 10:56 Resp 16 04/01/24 10:56 BP 144/66 H 04/01/24 10:56 Pulse Ox 97 04/01/24 10:56 O2 Del Method Room Air 04/01/24 09:44 Course Vital Signs Vital signs: Vital Signs Temperature 98.5 F 04/01/24 09:44 Pulse Rate 89 04/01/24 09:44 Respiratory Rate 96 H 04/01/24 09:44 Blood Pressure 130/87 04/01/24 09:44 Pulse Oximetry 96 04/01/24 09:44 Oxygen Delivery Method Room Air 04/01/24 09:44 Temperature 98.5 F 04/01/24 09:44 Pulse Rate 83 04/01/24 10:56 Respiratory Rate 16 04/01/24 10:56 Blood Pressure 144/66 H 04/01/24 10:56 Pulse Oximetry 97 04/01/24 10:56 Oxygen Delivery Method Room Air 04/01/24 09:44 MDM - Chest Pain MDM Narrative Medical decision making narrative: EKG showing sinus rhythm with a heart rate of [address] elevation or depression it was a normal sinus The patient CBC chemistry as well as troponin are negative so far will get another troponin because the patient age and risk factors Blood pressure was not elevated in the ER but according to her [id number] at the bedside she did had elevated blood pressure when she was having this discomfort at 150 systolic Chest x-ray showed no acute pathology Troponin repeated twice showed no acute pathology The patient was feeling better after she was treated in the ER with IV fluids and Pepcid her presentation could be secondary to GERD and in addition to grieving Right now she was discharged home with Pepcid twice daily for the next 5 days with a follow-up with her primary care doctor within a week The patient is to follow up with primary care physician in next 2-3 days or to return to the emergency department should any of the signs or symptoms worsen or new symptoms develop. The patient agrees with the following Diagnosis and Treatment plan and the patient will be discharged home. Lab Data Labs: Lab Results 04/01/24 04/01/24 Range/Units 09:55 12:19 WBC 6.3 (4.0-11.0) 10^3/uL RBC 3.71 L (4.20-5.40) 10^6/uL Hgb 11.9 L (12.0-16.0) g/dL Hct 35.9 L (36.0-48.0) % MCV 96.8 (81.0-99.0) fL MCH 32.1 (26.7-34.0) pg MCHC 33.1 (29.9-35.2) g/dL RDW 13.6 (11.0-15.0) % Plt Count 236 (150-450) 10^3/uL MPV 9.1 L (9.5-13.5) fL Neut % (Auto) 69.1 (43.0-75.0) % Lymph % (Auto) 22.3 (20.5-60.0) % [place] % (Auto) 6.2 (1.7-12.0) % Eos % (Auto) 1.7 (0.9-7.0) % Baso % (Auto) 0.5 (0.2-2.0) % Neut # (Auto) 4.4 (1.4-6.5) 10^3/uL Lymph # (Auto) 1.4 (1.2-3.8) 10^3/uL [place] # (Auto) 0.4 (0.3-0.8) 10^3/uL Eos # (Auto) 0.1 (0.0-0.7) 10^3/uL Baso # (Auto) 0.0 (0.0-0.1) 10^3/uL Abs Immat Gran (auto) 0.01 (0.00-0.03) 10^3/uL Imm/Tot Granulo (auto) 0.2 (0.0-0.5) % PT 10.3 (9.0-11.6) sec INR 0.97 Sodium 140 (136-145) mmol/L Potassium 4.0 (3.5-5.1) mmol/L Chloride 104 (98-107) mmol/L Carbon Dioxide 21.0 (21.0-32.0) mmol/L Anion Gap 19.0 BUN 24.0 H (7.0-18.0) mg/dL Creatinine 1.07 H (0.55-1.02) mg/dL Est GFR ( Amer) 60 (>=60) Est GFR (Non-Af Amer) 49 L (>=60) BUN/Creatinine Ratio 22.4 Glucose 204 H (74-106) mg/dL Calcium 9.0 (8.5-10.1) mg/dL Total Bilirubin 0.5 (0.2-1.0) mg/dL AST 22 (15-37) U/L ALT 22 (14-59) U/L Alkaline Phosphatase 57 (46-116) U/L Troponin I High Sens 48.4 40.8 (4.0-51.3) pg/mL Total Protein 7.5 (6.4-8.2) g/dL Albumin 3.4 (3.4-5.0) g/dL Globulin 4.1 g/dL Albumin/Globulin Ratio 0.8 Discharge Plan Discharge Stand Alone Forms: Portal Instructions Chief Complaint: Chest Pain Clinical Impression: Chest pain due to GERD Patient Disposition: Home, Self-Care Time of Disposition Decision: 13:21 Prescriptions / Home Meds: New famotidine [Pepcid] 20 mg tablet 20 mg PO BID Qty: 10 0RF No Action losartan 100 mg tablet 100 mg PO DAILY potassium chloride 10 mEq tablet,ER particles/crystals 10 meq PO DAILY meloxicam 15 mg tablet 15 mg PO DAILY PRN (Reason: pain) rosuvastatin 40 mg tablet 40 mg PO DAILY Anoro Ellipta 62.5-25 mcg/actuation blister with device 1 inh INHALATION Q24H acyclovir 800 mg tablet 800 mg PO Q4H Qty: 35 0RF Rx Instructions: while awake; give 5 doses in 24 hours prednisone 20 mg tablet 20 mg PO DAILY Qty: 11 0RF Rx Instructions: take two tabs daily for 4 days then one tab daily for 3 days hydrocodone-acetaminophen 5-325 mg tablet 1 tab PO Q8H PRN (Reason: severe pain) Qty: 10 0RF Rx Instructions: ICD 10 B02 Print Language: Spanish Instructions: Chest Pain (DC), GERD (Gastroesophageal Reflux Disease) (ED) Referrals: LUDY DRUMMOND [Primary Care Provider] - 1 week
[2024-04-01] MEDS: FAMOTIDINE/PF 20 MG/2 ML VIAL IV (10:52)
[2024-04-01] MEDS: 0.9 % SODIUM CHLORIDE 1,000 ML 500 ML IV (10:52)
[2024-04-01 10:56] VITALS: BP 144/66; PULSE 83; O2SAT 97
[2024-04-01 13:02] LABS: Troponin I High Sensitivity 40.8 pg/mL (4.0-51.3)
[2024-04-01 13:26] VITALS: BP 151/85; PULSE 82; O2SAT 96
== END 2024-04-01 13:33 | disposition home or self-care (01) ==
PROVIDERS: Emergency Provider Emergency Medicine; PCP Family Medicine
DX: K21.9 Gastro-esophageal reflux disease without esophagitis (principal); R07.9 Chest pain, unspecified
CPT/HCPCS: 36415; 71045; 80053; 84484; 85025; 85610; 93005; 96374; 99285

== ENCOUNTER 2024-09-22 16:40 | Emergency (ER) | payer MEDICARE, SELFPAY ==
[2024-09-22 16:48] VITALS: BP 129/85; PULSE 119; TEMP 36.8; O2SAT 96; BMI 20.2
--- OUTSIDE RECORDS SUMMARY | 2024-09-22 16:52 | XMS_ITS | CCD ---
Author Organization [facility] Providers Care Home Aid Name Role Phone SUMILONG, DR LENARD Sanon Consulting Unavailable FURLONG, DR LENARD Sanon Attending Unavailable FURLONG, DR LENARD Sanon Admitting Unavailable FURLONG, DR LENARD Sanon Primary Care Unavailable LE ROY, DR ZHANG Oliva Consulting Unavailable Furlong DOLenard Primary Care Provider LENARD ORTIZ Referring Unavailable FURLONG, LENARD Sanon Primary Care Unavailable FURLONG, LENARD Sanon Referring Unavailable FURLONG, LENARD Sanon Primary Care Unavailable FURLONG, LENARD Sanon Referring Unavailable FURLONG, LENARD Sanon Primary Care Unavailable FURLONG, LENARD Sanon Referring Unavailable FURLONG, LENARD Sanon Primary Care Unavailable FURLONG, LENARD Sanon Attending Unavailable FURLONG, LENARD Sanon Referring Unavailable FURLONG, LENARD Sanon Primary Care Unavailable FURLONG, LENARD Sanon Attending Unavailable FURLONG, LENARD Sanon Referring Unavailable FURLONG, LENARD Sanon Primary Care Unavailable FURLONG, LENARD Sanon Attending Unavailable FURLONG, LENARD Sanon Referring Unavailable FURLONG, LENARD Sanon Primary Care Unavailable FURLONG, LENARD Sanon Attending Unavailable FURLONG, LENARD Sanon Referring Unavailable FURLONG, LENARD Sanon Primary Care Unavailable FURLONG, LENARD Sanon Attending Unavailable FURLONG, LENARD Sanon Referring Unavailable FURLONG, LENARD Sanon Primary Care Unavailable Medications Current Medications Medication Drug Class(es) Dates Sig (Normalized) Sig (Original) amLODIPine 5 mg oral tablet (4 sources) Dihydropyridine Calcium Channel Kelly Start: 05-12-2024 take 1 tablet by mouth in the morning amLODIPine (NORVASC) 5 mg tablet Take 1 tablet (5 mg total) by mouth in the morning. 30 tablet 2 05/12/2024 Active aspirin 81 mg delayed release oral tablet (6 sources) Platelet Aggregation Inhibitor, Nonsteroidal Anti-inflammatory Drug take 1 tablet by mouth in the morning aspirin 81 mg Take 1 tablet (81 mg total) by mouth in the morning. Active benzonatate 100 mg oral capsule (3 sources) Non-narcotic Antitussive Start: 09-17-2024 End: 09-18-2024 take 2 capsules by mouth three times daily as needed for cough benzonatate (TESSALON PERLES) 100 mg capsule Take 2 capsules (200 mg total) by mouth 3 (three) times a day as needed for cough. 30 capsule 09/18/2024 Active cholecalciferol 0.05 mg oral tablet (6 sources) Vitamin D take 1 tablet by mouth in the morning cholecalciferol, vitamin D3, 2,000 units tablet Take 1 tablet (2,000 Units total) by mouth in the morning. Active ferrous sulfate 325 mg oral tablet (6 sources) ferrous sulfate 325 (65 FE) mg tablet daily. Active gabapentin 100 mg oral capsule (7 sources) Anti-epileptic Agent Start: 05-12-2024 End: 08-09-2024 take 1 capsule by mouth once daily gabapentin (NEURONTIN) 100 mg capsule Indications: Neuropathic postherpetic trigeminal neuralgia take 1 capsule by mouth nightly 30 capsule 2 08/09/2024 Active Start: 11-12-2023 take 1 capsule by mo uth three times daily gabapentin (NEURONTIN) 100 mg capsule Indications: Neuropathic postherpetic trigeminal neuralgia Take 1 capsule (100 mg total) by mouth 3 (three) times a day. 90 capsule 0 11/12/2023 Active losartan potassium 100 mg oral tablet (7 sources) Angiotensin 2 Receptor Kelly Start: 06-09-2024 take 1 tablet by mouth once daily losartan (COZAAR) 100 mg tablet Indications: Essential (primary) hypertension take 1 tablet by mouth every day 90 tablet 3 06/09/2024 Active Start: 12-12-2023 take 0.5 tablet by m outh in the morning losartan (COZAAR) 100 mg tablet Indications: Essential (primary) hypertension Take 0.5 tablets (50 mg total) by mouth in the morning. 0 12/12/2023 Active Start: 06-03-2023 End: 12-12-2023 take 1 tablet by mouth once daily losartan (COZAAR) 100 mg tablet Indications: Essential (primary) hypertension TAKE 1 TABLET BY MOUTH EVERY DAY 90 tablet 3 06/03/2023 12/12/2023 Discontinued methylPREDNISolone (3 sources) Corticosteroid Start: 09-18-2024 methylPREDNISo lone (MEDROL, WILSON,) 4 mg tablet Take 6 pills on day 1, 5 pills on day 2, for pills on day 3, 3 pills on day 4, 2 pills on day 5 and 1 pill on day 6 21 tablet 09/18/2024 Active Start: 09-17-2024 End: 09-18-2024 take 1 tablet by mouth in the morning methylPREDNISolone (MEDROL, WILSON,) 4 mg tablet Take 1 tablet (4 mg total) by mouth in the morning. follow package directions. 21 tablet 09/17/2024 09/18/2024 Discontinued (Reorder) microencapsulated potassium chloride 10 meq extended release oral tablet (7 sources) Start: 02-27-2024 End: 08-28-2024 take 1 tablet by mouth once daily in the morning potassium chloride (KLOR-CON M 10) 10 MEQ CR tablet Indications: Hypokalemia TAKE 1 TABLET BY MOUTH EVERY MORNING 90 tablet 1 08/28/2024 Active Start: 09-10-2023 take 1 tablet by khurram th once daily in the morning potassium chloride (KLOR-CON M 10) 10 MEQ CR tablet Indications: Hypokalemia TAKE 1 TABLET BY MOUTH EVERY MORNING 90 tablet 1 09/10/2023 Active red yeast rice 600 mg oral capsule (4 sources) Start: 06-25-2024 take 1 capsule by mouth in the morning red yeast rice 600 mg capsule Take 1 capsule by mouth in the morning. 06/25/2024 Active rosuvastatin calcium 40 mg oral tablet (6 sources) HMG-CoA Reductase Inhibitor Start: 06-09-2024 take 1 tablet by mouth once daily rosuvastatin (CRESTOR) 40 mg tablet Indications: Hyperlipidemia, unspecified take 1 tablet by mouth every day 90 tablet 3 06/09/2024 Active Start: 06-03-2023 take 1 tablet by khurram th once daily rosuvastatin (CRESTOR) 40 mg tablet Indications: Hyperlipidemia, unspecified TAKE 1 TABLET BY MOUTH EVERY DAY 90 tablet 3 06/03/2023 Active ubidecarenone 100 mg oral capsule (6 sources) take 1 capsule by mouth once in the morning, then take 1 capsule by mouth at bedtime coenzyme Q10 100 mg capsule Take 1 capsule (100 mg total) by mouth in the morning and 1 capsule (100 mg total) before bedtime. Active 30 actuat umeclidinium 0.0625 mg/actuat / vilanterol 0.025 mg/actuat dry powder inhaler (6 sources) Anticholinergic, beta2-Adrenergic Agonist Start: take 1 puff(s) by inhalation in the morning umeclidinium-vilant Marah (ANORO ELLIPTA) 62.5-25 mcg/actuation blister with device Indications: Obstructive lung disease (CMS-HCC) Inhale 1 puff in the morning. 1 each 5 05/12/2024 Active Start: 08-07-2023 take 1 puff(s) by inhalation in the morning umeclidinium-vilanteroL (ANORO ELLIPTA) 62.5-25 mcg/actuation blister with device Indications: Obstructive lung disease ([facility]-HCC) Inhale 1 puff in the morning. 1 each 08/07/2023 Active Problems Active Problems Problem Classification Problem Date Documented Date Episodic/Chronic Anxiety disorders (11 sources) Chronic anxiety; Translations: [Anxiety disorder, unspecified] Onset: 03-01-2017 08-27-2022 Chronic Chronic kidney disease (6 sources) Chronic kidney disease stage 3; Translations: [Stage 3 chronic kidney disease] Onset: 12-20-2016 08-27-2022 Chronic Chronic kidney disease (2 sources) Chronic kidney disease; Translations: [Chronic kidney disease, stage 3a] Onset: 04-08-2023 Chronic obstructive pulmonary disease and bronchiectasis (9 sources) Chronic obstructive lung disease; Translations: [Chronic obstructive pulmonary disease, unspecified] Onset: 11-12-2023 11-12-2023 Chronic Diabetes mellitus without complication (9 sources) Impaired fasting glycemia; Translations: [Impaired fasting glucose] Onset: 08-10-2016 08-27-2022 Episodic Disorders of lipid metabolism (9 sources) Hyperlipidemia; Translations: [Hyperlipidemia, unspecified] Onset: 08-10-2016 08-27-2022 Chronic Diverticulosis and diverticulitis (12 sources) Diverticulum of large intestine without hemorrhage; Translations: [Diverticulosis of large intestine without perforation or abscess without bleeding] Onset: 04-17-2017 04-17-2017 Chronic Esophageal disorders (6 sources) Gastroesophageal reflux disease; Translations: [Gastro-esophageal reflux disease without esophagitis] Onset: 08-10-2016 08-27-2022 Chronic Essential hypertension (11 sources) Essential hypertension; Translations: [Essential (primary) hypertension] Onset: 08-10-2016 08-27-2022 Chronic Fluid and electrolyte disorders (1 source) Hypokalemia; Translations: [Hypokalemia] 08-28-2024 Episodic Headache; including migraine (6 sources) Chronic tension-type headache; Translations: [Chronic tension-type headache, not intractable] Onset: 08-27-2022 08-27-2022 Chronic Hypertension with complications and secondary hypertension (9 sources) Hypertensive renal disease; Translations: [Hypertensive chronic kidney disease with stage 1 through stage 4 chronic kidney disease, or unspecified chronic kidney disease] Onset: 10-04-2022 Resolved: 06-25-2024 04-08-2023 Chronic Osteoarthritis (6 sources) Osteoarthritis; Translations: [Unspecified osteoarthritis, unspecified site] Onset: 08-10-2016 08-27-2022 Chronic Other and unspecified benign neoplasm (1 source) Benign lipomatous neoplasm of skin and subcutaneous tissue of trunk; Translations: [Benign lipomatous neoplasm of skin and subcutaneous tissue of trunk] Onset: 06-25-2024 Episodic Other circulatory disease (1 source) Orthostatic hypotension; Translations: [Orthostatic hypotension] 12-12-2023 Episodic Other hereditary and degenerative nervous system conditions (6 sources) Impaired cognition; Translations: [Mild cognitive impairment, so stated] Onset: 06-03-2023 06-03-2023 Chronic Other lower respiratory disease (1 source) Cough Onset: 09-17-2024 Episodic Other nutritional; endocrine; and metabolic disorders (1 source) Weight loss Onset: 06-25-2024 Episodic Other skin disorders (1 source) Localized swelling, mass and lump, trunk; Translations: [Localized swelling, mass and lump, trunk] Onset: 06-25-2024 Episodic Prolapse of female genital organs (6 sources) Cystocele; Translations: [Cystocele, unspecified] Onset: 08-10-2016 08-27-2022 Chronic Residual codes; unclassified (1 source) Family history of malignant neoplasm of breast; Translations: [FAMILY HX MALIG NEOPLASM OF BREAST] Onset: 09-15-2022 Episodic Residual codes; unclassified (1 source) Family history of malignant neoplasm of trachea, bronchus and lung; Translations: [FAM HX MALIG NEOPLSM TRACH BRON LNG] Onset: 09-15-2022 Episodic Residual codes; unclassified (1 source) Family history of malignant neoplasm of other organs or systems; Translations: [FAM HX MALIG NEOPLASM OTH ORGN/SYS] Onset: 09-15-2022 Episodic Spondylosis; intervertebral disc disorders; other back problems (6 sources) Degeneration of lumbar intervertebral disc; Translations: [Other intervertebral disc degeneration, lumbar region] Onset: 08-10-2016 08-27-2022 Chronic Thyroid disorders (1 source) Hypothyroidism Onset: 11-12-2023 Chronic Unclassified (1 source) MAW Onset: 05-05-2024 Past or Other Problems Problem Classification Problem Date Documented Date Episodic/Chronic Conditions associated with dizziness or vertigo (7 sources) Dizziness; Translations: [Dizziness and giddiness] Onset: 3 05-02-2023 Episodic Deficiency and other anemia (7 sources) Iron deficiency anemia; Translations: [Iron deficiency anemia, unspecified] Onset: 7 04-15-2017 Episodic Deficiency and other anemia (2 sources) Iron deficiency anemia, unspecified; Translations: [Iron deficiency anemia, unspecified] Onset: 7 Episodic Gastritis and duodenitis (6 sources) Acute superficial gastritis; Translations: [Acute gastritis without bleeding] Onset: 0 05-04-2020 Episodic Gastroduodenal ulcer (except hemorrhage) (6 sources) Acute gastric ulcer without hemorrhage AND without perforation; Translations: [Acute gastric ulcer without hemorrhage or perforation] Onset: 0 05-04-2020 Episodic Headache; including migraine (6 sources) Headache; Translations: [Nonintractable episodic headache] Onset: 6 05-02-2023 Episodic Mood disorders (6 sources) Mood disorders Onset: 4 Resolved: 4 11-12-2023 Other bone disease and musculoskeletal deformities (6 sources) Osteopenia; Translations: [Other specified disorders of bone density and structure, unspecified site] Onset: 6 08-27-2022 Episodic Other circulatory disease (1 source) Orthostatic hypotension; Translations: [Orthostatic hypotension] Onset: 4 Episodic Other connective tissue disease (6 sources) Ganglion cyst; Translations: [Ganglion, unspecified site] Onset: 6 08-27-2022 Episodic Other connective tissue disease (6 sources) Ganglion of joint; Translations: [Ganglion, unspecified site] Onset: 2 08-27-2022 Episodic Other connective tissue disease (6 sources) Dupuytren contracture of right palm; Translations: [Palmar fascial fibromatosis [Dupuytren]] Onset: 2 08-27-2022 Episodic Other gastrointestinal disorders (6 sources) Dysphagia; Translations: [Dysphagia, pharyngoesophageal phase] Onset: 0 04-22-2020 Episodic Other gastrointestinal disorders (1 source) Diarrhea Onset: 4 Episodic Other lower respiratory disease (1 source) Shortness of breath Onset: 4 Episodic Other screening for suspected conditions (not mental disorders or infectious disease) (5 sources) Encounter for screening mammogram for malignant neoplasm of breast; Translations: [ENC SCR MAMMO MALIG NEOPLASM BREAST] Onset: 2 Episodic Other skin disorders (6 sources) Seborrheic keratosis; Translations: [Other seborrheic keratosis] Onset: 2 08-27-2022 Episodic Spondylosis; intervertebral disc disorders; other back problems (7 sources) Spinal stenosis of lumbar region; Translations: [Spinal stenosis, lumbar region with neurogenic claudication] Onset: 3 07-08-2023 Episodic Viral infection (2 sources) Post-herpetic trigeminal neuralgia; Translations: [Postherpetic trigeminal neuralgia] Onset: 4 08-09-2024 Episodic Results Test Name Value Interpretation Reference Range Facility BASIC METABOLIC PANLon 05-12 Anion gap [Moles/Vol] 10 mmol/L Normal - [facility] Comment on above: Performed By: #### C BC, BMP, 35798-0, 2777-1, 3084-1, 3016-3, 2731-8, 99228-3, HA1C #### [facility] ([id number]) [address], [address] [place] [address] Calcium [Mass/Vol] 9.4 mg/dL Normal 8.5-10.5 [facility] Comment on above: Performed By: #### C BC, BMP, 11806-6, 2777-1, 3084-1, 3016-3, 2731-8, 90993-6, HA1C #### [facility] ([id number]) [address], [address] [place] [address] Chloride [Moles/Vol] 103 mmol/L Normal 98-109 [facility] Comment on above: Performed By: #### C BC, BMP, 41632-1, 2777-1, 3084-1, 3016-3, 2731-8, 81945-9, HA1C #### [facility] ([id number]) [address], [address] [place] [address] CO2 [Moles/Vol] 25 mmol/L Normal 22-32 [facility] Comment on above: Performed By: #### C BC, BMP, 59118-2, 2777-1, 3084-1, 3016-3, 2731-8, 92576-6, HA1C #### [facility] ([id number]) [address], [address] [place] [address] Creatinine [Mass/Vol] 0.86 mg/dL Normal 0.40-1.00 [facility] Comment on above: Result Comment: METH OD TRACEABLE TO IDMS STANDARD Performed By: #### C BC, BMP, 83562-8, 2777-1, 3084-1, 3016-3, 2731-8, 12633-2, HA1C #### [facility] ([id number]) [address] [place] [address] GFR/1.73 sq M.predicted among non-blacks MDRD (S/P/Bld) [Vol rate/Area] 68 mL/min/{1.73_m2} Normal >59 [facility] Comment on above: Result Comment: Reported eGFR is based on the CKD-EPI 2020 equation that does not use a race coefficient. Performed By: #### C BC, BMP, 47907-5, 2777-1, 3084-1, 3016-3, 2731-8, 53143-3, HA1C #### [facility] ([id number]) [address], [address] [place] [address] Glucose [Mass/Vol] 111 mg/dL Normal [facility] Comment on above: Performed By: #### C BC, BMP, 30166-8, 2777-1, 3084-1, 3016-3, 2731-8, 95325-0, HA1C #### [facility] ([id number]) [address], [address] [place] [address] Performed By: #### C MP, 40567-1 #### [facility] ([id number]) [address], [address] [place] [address] Potassium [Moles/Vol] 4.4 mmol/L Normal 3.5-5.0 [facility] Comment on above: Performed By: #### C BC, BMP, 81647-5, 2777-1, 3084-1, 3016-3, 2731-8, 76338-5, HA1C #### [facility] ([id number]) [address], [address] [place] [address] Sodium [Moles/Vol] 138 mmol/L Normal 134-146 [facility] Comment on above: Performed By: #### C BC, BMP, 17350-6, 2777-1, 3084-1, 3016-3, 2731-8, 58965-9, HA1C #### [facility] ([id number]) [address], [address] [place] [address] Urea nitrogen [Mass/Vol] 26 mg/dL Normal 5-27 [facility] Comment on above: Performed By: #### C BC, BMP, 08808-0, 2777-1, 3084-1, 3016-3, 2731-8, 66069-2, HA1C #### [facility] ([id number]) [address], [address] [place] [address] COMPLETE BLOOD COUNTon 05-12 Erythrocyte distribution width (RBC) [Ratio] 13.9 % Normal 11.5-15.0 [facility] Comment on above: Performed By: #### C BC, BMP, 42973-8, 2777-1, 3084-1, 3016-3, 2731-8, 27530-9, HA1C #### [facility] ([id number]) [address], [address] [place] [address] Hematocrit (Bld) [Volume fraction] 34.3 % Low 35-47 [facility] Comment on above: Performed By: #### C BC, BMP, 75658-4, 2777-1, 3084-1, 3016-3, 2731-8, 73725-8, HA1C #### [facility] ([id number]) [address], [address] [place] [address] Hemoglobin (Bld) [Mass/Vol] 11.7 g/dL Normal 11.7-15.5 [facility] Comment on above: Performed By: #### C BC, BMP, 26989-3, 2777-1, 3084-1, 3016-3, 2731-8, 13296-3, HA1C #### [facility] ([id number]) [address], [address] [place] [address] MCH (RBC) [Entitic mass] 33.3 pg Normal 27-34 [facility] Comment on above: Performed By: #### C BC, BMP, 54761-0, 2777-1, 3084-1, 3016-3, 2731-8, 22482-9, HA1C #### [facility] ([id number]) [address], [address] [place] [address] MCHC (RBC) [Mass/Vol] 34.2 g/dL Normal 32-36 [facility] Comment on above: Performed By: #### C BC, BMP, 56104-5, 2777-1, 3084-1, 3016-3, 2731-8, 13625-5, HA1C #### [facility] ([id number]) [address], [address] [place] [address] MCV (RBC) [Entitic vol] 97 fL Normal 80-100 [facility] Comment on above: Performed By: #### C BC, BMP, 82146-1, 2777-1, 3084-1, 3016-3, 2731-8, 41172-4, HA1C #### [facility] ([id number]) [address], [address] [place] [address] Platelet mean volume (Bld) [Entitic vol] 8.1 fL Normal 7-12 [facility] Comment on above: Performed By: #### C BC, BMP, 54690-7, 2777-1, 3084-1, 3016-3, 2731-8, 11183-3, HA1C #### [facility] ([id number]) [address], [address] [place] [address] Platelets (Bld) [#/Vol] 248 10*3/uL Normal 150-450 [facility] Comment on above: Performed By: #### C BC, BMP, 69101-0, 2777-1, 3084-1, 3016-3, 2731-8, 39153-4, HA1C #### [facility] ([id number]) [address], [address] [place] [address] RBC COUNT 3.53 X10E12/L Low 3.80-5.20 [facility] Comment on above: Performed By: #### C BC, BMP, 39706-6, 2777-1, 3084-1, 3016-3, 2731-8, 88464-9, HA1C #### [facility] ([id number]) [address], [address] [place] [address] WBC (Bld) [#/Vol] 5.1 10*3/uL Normal 4.0-11.0 [facility] Comment on above: Performed By: #### C BC, BMP, 14338-7, 7-1, 3084-1, 3016-3, 2731-8, 63704-0, HA1C #### [facility] ([id number]) [address], [address] [place] [address] HGB A1C (GLYCO-HGB)on 2023 HbA1c (Bld) [Mass fraction] 5.5 % Normal 4.4-5.6 [facility] Comment on above: Result Comment: NOTE ADA Guidelines Result HgbA1c Normal : less than 5.7 % Prediabetes : 5.7 % to 6.4 % Diabetes : > 6.4 % Use with caution in patients with abnormal hemoglobin variants as the half-life of red blood cells and in vivo glycation rates are affected. Performed By: #### C MP, 83295-7 #### [facility] ([id number]) [address], [address] [place] [address] MAGNESIUMon 05-12-2024 Magnesium [Mass/Vol] 1.9 mg/dL Normal 1.8-2.6 [facility] Comment on above: Performed By: #### C BC, BMP, 98600-2, 2776-1, 3084-1, 3016-3, 2731-8, 90272-5, HA1C #### [facility] ([id number]) [address], [address] [place] [address] PHOSPHORUSon 05-12-2024 Phosphate [Mass/Vol] 3.7 mg/dL Normal 2.4-4.9 [facility] Comment on above: Performed By: #### C BC, BMP, 52554-8, 2777-1, 3084-1, 3016-3, 2731-8, 48551-6, HA1C #### [facility] ([id number]) [address], [address] [place] [address] Parathyrin.intact [Mass/Vol] on 05-12-2024 PTH INTACT 49 pg/mL Normal 12-88 [facility] Comment on above: Performed By: #### Susan JIMENEZ, 81500-4 #### [facility] ([id number]) [address], [address] [place] [address] TSH Qnon 05-12-2024 TSH 1.66 uIU/mL Normal 0.49-4.67 [facility] Comment on above: Performed By: #### Susan JIMENEZ, 76846-7 #### [facility] ([id number]) [address], [address] [place] [address] URIC ACIDon 05-12-2024 Urate [Mass/Vol] 4.0 mg/dL Normal 2.6-7.2 [facility] Comment on above: Performed By: #### C BC, BMP, 46451-2, 2777-1, 3084-1, 3016-3, 2731-8, 85140-5, HA1C #### [facility] ([id number]) [address], [address] [place] [address] Vitamin D+Metabolites [Mass/ Vol]on 05-12-2024 VITAMIN D 25 HYD TOT 51.9 ng/mL Normal 30-100 [facility] Comment on above: Result Comment: Vitamin D status 25 [place] Vitamin D Deficiency <20 ng/mL Insufficiency 20-29 ng/mL Sufficiency 30-100 ng/mL Toxicity >100 ng/mL NOTE: A pediatric reference range has not been established by the real estate rep of this kit. The [place] [employer] recommends a Vitamin D level of = or >20ng/mL in infants and children. Performed By: #### C , 80714-7 #### [facility] ([id number]) [address], [address] [place] [address] Basic Metabolic Panelon 11-28 Anion gap [Moles/Vol] 9 mmol/L 5 - 15 mmol/L [facility] Calcium [Mass/Vol] 9.5 mg/dL 8.5 - 10. 5 mg/dL [facility] Chloride [Moles/Vol] 110 mmol/L High 98 - 10 9 mmol/L [facility] CO2 [Moles/Vol] 22 mmol/L 22 - 32 mmol/L [facility] Creatinine [Mass/Vol] 0.93 mg/dL 0.40 - 1.00 mg/dL [facility] Comment on above: METHOD TRACEABLE TO [facility] STANDARD eGFR (CKD-EPI)non-race dependent 62 - PINF [facility] Comment on above: Reported eGFR is based on the CKD-EPI 2020 equation that does not use a race coefficient. Glucose [Mass/Vol] 98 mg/dL 65 - 99 mg/dL [facility] Interpretation and review of laboratory results Abnormal [facility] Potassium [Moles/Vol] 4.3 mmol/L 3.5 - 5.0 mmol/L [facility] Sodium [Moles/Vol] 141 mmol/L 134 - 146 mmol/L [facility] Urea nitrogen [Mass/Vol] 30 mg/dL High 5 - 27 mg/dL [facility] CBC without diffon Erythrocyte distribution width (RBC) [Ratio] 13.5 % 11.5 - 15.0 % [facility] Hematocrit (Bld) [Volume fraction] 34.1 % Low 35 - 47 % [facility] Hemoglobin (Bld) [Mass/Vol] 11.5 g/dL Low 11.7 - 15.5 g/dL [facility] Interpretation and review of laboratory results Abnormal [facility] MCH (RBC) [Entitic mass] 32.9 pg 27 - 34 pg [facility] MCHC (RBC) [Mass/Vol] 33.7 g/dL 32 - 36 g/dL [facility] MCV (RBC) [Entitic vol] 98 fL 80 - 100 fL [facility] Platelet mean volume (Bld) [Entitic vol] 8.2 fL 7 - 12 fL [facility] Platelets (Bld) [#/Vol] 251 10*3/uL [facility] RBC (Bld) [#/Vol] 3.48 10*6/uL Low [facility] WBC corrected for nucl RBC Auto (Bld) [#/Vol] 4.6 [facility] Iron and TIBCon 12-13-2023 Iron [Mass/Vol] 76 ug/dL 50 - 170 ug/dL [facility] Iron binding capacity [Mass/Vol] 403 ug/dL 250 - 425 ug/dL [facility] Iron saturation [Mass fraction] 19 [facility] No Panel Informationon 12-13 [facility] BASIC METABOLIC PANLon 12-12 Anion gap [Moles/Vol] 9 mmol/L Normal 5-15 [facility] Comment on above: Performed By: #### C HARLEY FLORENCE, FEPR #### [facility] ([id number]) [address] [place] [address] Calcium [Mass/Vol] 9.5 mg/dL Normal 8.5-10.5 [facility] Comment on above: Performed By: #### C HARLEY FLORENCE, FEPR #### [facility] ([id number]) [address] [place] [address] Chloride [Moles/Vol] 110 mmol/L High 98-109 [facility] Comment on above: Performed By: #### C NAMAN BMP, FEPR #### [facility] ([id number]) [address] [place] [address] CO2 [Moles/Vol] 22 mmol/L Normal 22-32 [facility] Comment on above: Performed By: #### C HARLEY FLORENCE, FEPR #### [facility] ([id number]) [address] [address] [place] [address] Creatinine [Mass/Vol] 0.93 mg/dL Normal 0.40-1.00 [facility] Comment on above: Result Comment: METH OD TRACEABLE TO IDMS STANDARD Performed By: #### C HARLEY FLORENCE, FEPR #### [facility] ([id number]) [address] [address] GFR/1.73 sq M.predicted among non-blacks MDRD (S/P/Bld) [Vol rate/Area] 62 mL/min/{1.73_m2} Normal >59 [facility] Comment on above: Result Comment: Reported eGFR is based on the CKD-EPI 2020 equation that does not use a race coefficient. Performed By: #### C HARLEY FLORENCE, FEPR #### [facility] ([id number]) [address] [address] [place] [address] Glucose [Mass/Vol] 98 mg/dL Normal 65-99 [facility] Comment on above: Performed By: #### C HARLEY FLORENCE, FEPR #### [facility] ([id number]) [address] [address] [place] [address] Potassium [Moles/Vol] 4.3 mmol/L Normal 3.5-5.0 [facility] Comment on above: Performed By: #### C HARLEY FLORENCE, FEPR #### [facility] ([id number]) [address] [address] Sodium [Moles/Vol] 141 mmol/L Normal 134-146 [facility] Comment on above: Performed By: #### C HARLEY FLORENCE, FEPR #### [facility] ([id number]) [address] [address] [place] [address] Urea nitrogen [Mass/Vol] 30 mg/dL High 5-27 [facility] Comment on above: Performed By: #### HARLEY NICOLE, FEPR #### [facility] ([id number]) [address], [facility] [address] [place] [address] COMPLETE BLOOD COUNTon 12-12 Erythrocyte distribution width (RBC) [Ratio] 13.5 % Normal 11.5-15.0 [facility] Comment on above: Performed By: #### C HARLEY FLORENCE, FEPR #### [facility] ([id number]) [address], [facility] [address] [place] [address] Hematocrit (Bld) [Volume fraction] 34.1 % Low 35-47 [facility] Comment on above: Performed By: #### HARLEY NICOLE, FEPR #### [facility] ([id number]) [address], [address] [address] Hemoglobin (Bld) [Mass/Vol] 11.5 g/dL Low 11.7-15.5 [facility] Comment on above: Performed By: #### HARLEY NICOLE, FEPR #### [facility] ([id number]) [address], [facility] [address] [place] [address] MCH (RBC) [Entitic mass] 32.9 pg Normal 27-34 [facility] Comment on above: Performed By: #### C HARLEY FLORENCE, FEPR #### [facility] ([id number]) [address], [facility] [address] [place] [address] MCHC (RBC) [Mass/Vol] 33.7 g/dL Normal 32-36 [facility] Comment on above: Performed By: #### HARLEY NICOLE, FEPR #### [facility] ([id number]) [address], [facility] [address] [place] [address] MCV (RBC) [Entitic vol] 98 fL Normal 80-100 [facility] Comment on above: Performed By: #### C BC, BMP, FEPR #### [facility] ([id number]) [address] [place] [address] Platelet mean volume (Bld) [Entitic vol] 8.2 fL Normal 7-12 [facility] Comment on above: Performed By: #### C BC, BMP, FEPR #### [facility] ([id number]) [address], [address] [place] [address] Platelets (Bld) [#/Vol] 251 10*3/uL Normal 150-450 [facility] Comment on above: Performed By: #### C BC, BMP, FEPR #### [facility] ([id number]) [address], [facility] [address] [place] [address] RBC COUNT 3.48 X10E12/L Low 3.80-5.20 [facility] Comment on above: Performed By: #### C BC, BMP, FEPR #### [facility] ([id number]) [address], [facility] [address] [place] [address] WBC (Bld) [#/Vol] 4.6 10*3/uL Normal 4.0-11.0 [facility] Comment on above: Performed By: #### C BC, BMP, FEPR #### [facility] ([id number]) [address], [address] [place] [address] IRON PROFILEon 12-12-2023 Iron [Mass/Vol] 76 ug/dL Normal 50-170 [facility] Comment on above: Performed By: #### C BC, BMP, FEPR #### [facility] ([id number]) [address] [address] [place] [address] IRON BINDING 403 ug/dL Normal 250-425 [facility] Comment on above: Performed By: #### C BC, BMP, FEPR #### [facility] ([id number]) [address], [address] [place] [address] IRON SATURATION 19 % SATURATION Normal 15-50 [facility] Comment on above: Performed By: #### C BC, BMP, FEPR #### [facility] ([id number]) [address] [place] [address] COMPREHENSIVE METABOLIC PANE [place] 11-12-2023 Albumin [Mass/Vol] 4.0 g/dL Normal 3.2-5.3 [facility] Comment on above: Performed By: #### C TONY, 75433-8 #### [facility] ([id number]) [address] [place] [address] ALP [Catalytic activity/Vol] 51 U/L Normal 39-130 [facility] Comment on above: Performed By: #### C TONY, 41129-2 #### [facility] ([id number]) [address], [address] [place] [address] ALT [Catalytic activity/Vol] 15 U/L Normal 0-31 [facility] Comment on above: Performed By: #### Susan JIMENEZ, 42885-3 #### [facility] ([id number]) [address], [address] [place] [address] Anion gap [Moles/Vol] 10 mmol/L Normal 5-15 [facility] Comment on above: Performed By: #### C TONY, 39768-2 #### [facility] ([id number]) [address], [address] [place] [address] AST [Catalytic activity/Vol] 21 U/L Normal 0-41 [facility] Comment on above: Performed By: #### Susan JIMENEZ, 06513-3 #### [facility] ([id number]) [address], [address] [place] [address] Bilirubin [Mass/Vol] 0.3 mg/dL Normal 0.3-1.2 [facility] Comment on above: Performed By: #### Susan JIMENEZ, 75724-8 #### [facility] ([id number]) [address], [address] [place] [address] Calcium [Mass/Vol] 9.8 mg/dL Normal 8.5-10.5 [facility] Comment on above: Performed By: #### Susan JIMENEZ, 93423-0 #### [facility] ([id number]) [address], [address] [place] [address] Chloride [Moles/Vol] 104 mmol/L Normal 98-109 [facility] Comment on above: Performed By: #### Susan JIMENEZ, 55880-7 #### [facility] ([id number]) [address] [address] [place] [address] CO2 [Moles/Vol] 23 mmol/L Normal 22-32 [facility] Comment on above: Performed By: #### Susan JIMENEZ, 18692-3 #### [facility] ([id number]) [address] [address] [place] [address] Creatinine [Mass/Vol] 1.28 mg/dL High 0.40-1.00 [facility] Comment on above: Result Comment: METH OD TRACEABLE TO IDMS STANDARD Performed By: #### Susan JIMENEZ, 93075-2 #### [facility] ([id number]) [address] [address] GFR/1.73 sq M.predicted among non-blacks MDRD (S/P/Bld) [Vol rate/Area] 42 mL/min/{1.73_m2} Low >59 [facility] Comment on above: Result Comment: Reported eGFR is based on the CKD-EPI 2020 equation that does not use a race coefficient. Performed By: #### Susan JIMENEZ, 48248-5 #### [facility] ([id number]) [address] [place] [address] Glucose [Mass/Vol] 100 mg/dL High 65-99 [facility] Comment on above: Performed By: #### Susan JIMENEZ, 35842-0 #### [facility] ([id number]) [address], [address] [place] [address] Potassium [Moles/Vol] 4.6 mmol/L Normal 3.5-5.0 [facility] Comment on above: Performed By: #### Susan JIMENEZ, 57933-2 #### [facility] ([id number]) [address] [place] [address] Protein [Mass/Vol] 7.3 g/dL Normal 6.0-8.0 [facility] Comment on above: Performed By: #### Susan JIMENEZ, 55065-2 #### [facility] ([id number]) [address] [place] [address] Sodium [Moles/Vol] 137 mmol/L Normal 134-146 [facility] Comment on above: Performed By: #### Susan JIMENEZ, 54978-5 #### [facility] ([id number]) [address] [place] [address] Urea nitrogen [Mass/Vol] 36 mg/dL High 5-27 [facility] Comment on above: Performed By: #### Susan JIMENEZ, 14057-1 #### [facility] ([id number]) [address] [place] [address] Lipid 1996 panelon 4 Cholesterol [Mass/Vol] 137 mg/dL Low 150-200 [facility] Comment on above: Performed By: #### Susan JIMENEZ, 19678-8 #### [facility] ([id number]) [address] [place] [address] Cholesterol in HDL [Mass/Vol] 44 mg/dL Normal >39 [facility] Comment on above: Result Comment: HDL <40 mg/dL - High Risk HDL > or = 40mg/dL- Desirable HDL >60 mg/dL - Negative Risk Performed By: #### Susan JIMENEZ, 29507-5 #### [facility] ([id number]) [address] [place] [address] Cholesterol in LDL [Mass/Vol] 43 mg/dL Normal <130 [facility] Comment on above: Result Comment: LDL <100 mg/dL - Desirable LDL >160 mg/dL - High Risk Performed By: #### Susan JIMENEZ, 95521-5 #### [facility] ([id number]) [address], [address] [place] [address] Cholesterol in VLDL [Mass/Vol] 50 mg/dL High 0-30 [facility] Comment on above: Performed By: #### Susan JIMENEZ, 01700-8 #### [facility] ([id number]) [address], [address] [place] [address] CHOLESTEROL:HDL 3.1 Normal 1.0-5.0 [facility] Comment on above: Performed By: #### Susan JIMENEZ, 55600-0 #### [facility] ([id number]) [address], [address] [place] [address] Triglyceride [Mass/Vol] 248 mg/dL High 27-150 [facility] Comment on above: Performed By: #### Susan JIMENEZ, 63449-0 #### [facility] ([id number]) [address], [address] [place] [address] MG MAMM SCREEN 3D KJ CADon 09-12-2022 MG MAMM SCREEN 3D KJ CAD Patient: SHELLEY GILMORE Exam Date: 09/12/2022 : 1945 Gender:F Ordering : DR LENARD ORTIZ Admission #: [id number] Family : Order #: [id number] CLICK HERE TO VIEW EXAM RADIOLOGY REPORT [...] lung cancer at age 60. LOCATION: [facility] BREAST COMPOSITION: Heterogeneously dense,which may obscure small [...] MD on 09/12/2022 at 09:54 Normal [facility] CULTURE, URINE, ROUTINEon CULTURE, URINE, ROUTINE SEE NOTE Abnormal [facility] Comment on above: Order Comment: FASTI NG: UNKNOWN Result Comment: CULTURE, URINE, ROUTINE Micro Number: [id number] Test Status: Final Specimen Source: Not given [...] INCORRECT, PLEASE CONTACT CLIENT SERVICES. PHONE NUMBER: [phone] Performed By: #### 3 95 #### [facility] [place] [address] Electrical Wirer: Chava Ness MD CBC (INCLUDES DIFF/PLT)on Basophils (Bld) [#/Vol] 0.029 10*3/uL Normal 0-200 [facility] Comment on above: Performed By: #### 1 0165, 6399 #### [facility] [place] [address] Electrical Wirer: Chava Ness MD Basophils/100 WBC (Bld) 0.5 % Normal [facility] Comment on above: Performed By: #### 1 0165, 6399 #### [facility] [place] [address] Electrical Wirer: Chava Ness MD Eosinophils (Bld) [#/Vol] 0.182 10*3/uL Normal 15-500 [facility] Comment on above: Performed By: #### 1 0165, 6399 #### [facility] [place] [address] Electrical Wirer: Chava Ness MD Eosinophils/100 WBC (Bld) 3.2 % Normal [facility] Comment on above: Performed By: #### 1 0165, 6399 #### [facility] of [place] [address] Electrical Wirer: Chava Ness MD Erythrocyte distribution width (RBC) [Ratio] 12.7 % Normal 11.0-15.0 [facility] Comment on above: Performed By: #### 1 0165, 6399 #### [facility] [place] [address] Electrical Wirer: Chava Ness MD Hematocrit (Bld) [Volume fraction] 32.4 % Low 35.0-45.0 [facility] Comment on above: Performed By: #### 1 0165, 6399 #### [facility] [place] [address] Electrical Wirer: Chava Ness MD Hemoglobin (Bld) [Mass/Vol] 10.6 g/dL Low 11.7-15.5 [facility] Comment on above: Performed By: #### 1 0165, 6399 #### [facility] [place] [address] Electrical Wirer: Chava Ness MD Lymphocytes (Bld) [#/Vol] 1.721 10*3/uL Normal 850-3900 [facility] Comment on above: Performed By: #### 1 0165, 6399 #### [facility] [place] [address] Electrical Wirer: Chava Ness MD Lymphocytes/100 WBC (Bld) 30.2 % Normal [facility] Comment on above: Performed By: #### 1 0165, 6399 #### [facility] [place] [address] Electrical Wirer: Chava Nses MD MCH (RBC) [Entitic mass] 32.0 pg Normal 27.0-33.0 [facility] Comment on above: Performed By: #### 1 0165, 6399 #### [facility] of [address], [address] [place] [address] Electrical Wirer: Chava Ness MD MCHC (RBC) [Mass/Vol] 32.7 g/dL Normal 32.0-36.0 [facility] Comment on above: Performed By: #### 1 0165, 6399 #### [facility] of [address], [address] [place] [address] Electrical Wirer: Chava Ness MD MCV (RBC) [Entitic vol] 97.9 fL Normal 80.0-100.0 [facility] Comment on above: Performed By: #### 1 0165, 6399 #### [facility] of [address], [address] [place] [address] Electrical Wirer: Chava Ness MD Monocytes (Bld) [#/Vol] 0.564 10*3/uL Normal 200-950 [facility] Comment on above: Performed By: #### 1 0165, 6399 #### [facility] of [address], [address] [place] [address] Electrical Wirer: Chava Ness MD Monocytes/100 WBC (Bld) 9.9 % Normal [facility] Comment on above: Performed By: #### 1 0165, 6399 #### [facility] of [address], [address] [place] [address] Electrical Wirer: Chava Ness MD Neutrophils (Bld) [#/Vol] 3.203 10*3/uL Normal 1780-9190 [facility] Comment on above: Performed By: #### 1 0165, 6399 #### [facility] of [address], [address] [place] [address] Electrical Wirer: Chava Ness MD Neutrophils/100 WBC (Bld) 56.2 % Normal [facility] Comment on above: Performed By: #### 1 0165, 6399 #### [facility] of [address], [address] [place] [address] Electrical Wirer: Chava Ness MD Platelet mean volume (Bld) [Entitic vol] 10.1 fL Normal 7.5-12.5 [facility] Comment on above: Performed By: #### 1 0165, 6399 #### [facility] of [address], [address] [place] [address] Electrical Wirer: Chava Ness MD Platelets (Bld) [#/Vol] 236 10*3/uL Normal 140-400 [facility] Comment on above: Performed By: #### 1 0165, 6399 #### [facility] of [address], [address] [place] [address] Electrical Wirer: Chava Ness MD RBC (Bld) [#/Vol] 3.31 10*6/uL Low 3.80-5.10 [facility] Comment on above: Performed By: #### 1 0165, 6399 #### [facility] of [address], [address] [place] [address] Electrical Wirer: Chava Ness MD WBC (Bld) [#/Vol] 5.7 10*3/uL Normal 3.8-10.8 [facility] Comment on above: Performed By: #### 1 0165, 6399 #### [facility] [place] [address] Electrical Wirer: Chava Ness MD [facility] 04-07-2022 Albumin [Mass/Vol] 3.9 g/dL Normal 3.6-5.1 [facility] Comment on above: Performed By: #### 1 0165, 6399 #### [facility] of [address], [address] [place] [address] Electrical Wirer: Chava Ness MD Albumin/Globulin [Mass ratio] 1.5 {ratio} Normal 1.0-2.5 [facility] Comment on above: Performed By: #### 1 0165, 6399 #### [facility] [place] [address] Electrical Wirer: Chava Ness MD ALP [Catalytic activity/Vol] 45 U/L Normal 37-153 [facility] Comment on above: Performed By: #### 1 0165, 6399 #### [facility] [place] [address] Electrical Wirer: Chava Ness MD ALT [Catalytic activity/Vol] 12 U/L Normal 6-29 [facility] Comment on above: Performed By: #### 1 0165, 6399 #### [facility] [place] [address] Electrical Wirer: Chava Ness MD AST [Catalytic activity/Vol] 16 U/L Normal 10-35 [facility] Comment on above: Performed By: #### 1 0165, 6399 #### [facility] [place] [address] Electrical Wirer: Chava Ness MD Bilirubin [Mass/Vol] 0.5 mg/dL Normal 0.2-1.2 [facility] Comment on above: Performed By: #### 1 0165, 6399 #### [facility] [place] [address] Electrical Wirer: Chava Ness MD Calcium [Mass/Vol] 9.0 mg/dL Normal 8.6-10.4 [facility] Comment on above: Performed By: #### 1 0165, 6399 #### [facility] [place] [address] Electrical Wirer: Chava Ness MD Chloride [Moles/Vol] 108 mmol/L Normal 98-110 [facility] Comment on above: Performed By: #### 1 0165, 6399 #### [facility] [place] [address] Electrical Wirer: Chava Ness MD CO2 [Moles/Vol] 21 mmol/L Normal 20-32 [facility] Comment on above: Performed By: #### 1 0165, 6399 #### [facility] [place] [address] Electrical Wirer: Chava Ness MD Creatinine [Mass/Vol] 1.13 mg/dL High 0.60-0.93 [facility] Comment on above: Result Comment: For patients >49 years of age, the reference limit for Creatinine is approximately 13% higher for people identified as -Djiboutian. Performed By: #### 1 0165, 6399 #### [facility] [place] [address] Electrical Wirer: Chava Ness MD eGFR NON-AFR. ISRAELI 47 mL/min/1.73m2 Low > OR = 60 [facility] Comment on above: Performed By: #### 1 0165, 6399 #### [facility] [place] [address] Electrical Wirer: Chava Ness MD GFR/1.73 sq M.predicted among blacks MDRD (S/P/Bld) [Vol rate/Area] 54 mL/min/{1.73_m2} Low > OR = 60 [facility] Comment on above: Performed By: #### 1 0165, 6399 #### [facility] [place] [address] Electrical Wirer: Chava Ness MD Globulin (S) [Mass/Vol] 2.6 g/dL Normal 1.9-3.7 [facility] Comment on above: Performed By: #### 1 0165, 6399 #### [facility] [place] [address] Electrical Wirer: Chava Ness MD Glucose [Mass/Vol] 140 mg/dL High 65-139 [facility] Comment on above: Result Comment: Non-fasting reference interval For someone without known diabetes, a glucose value >125 mg/dL indicates that they may have diabetes and this should be confirmed with a follow-up test. Performed By: #### 1 0165, 6399 #### [facility] [address], [address] [place] [address] Electrical Wirer: Chava Ness MD Potassium [Moles/Vol] 4.4 mmol/L Normal 3.5-5.3 [facility] Comment on above: Performed By: #### 1 0165, 6399 #### [facility] [address], [address] [place] [address] Electrical Wirer: Chava Ness MD Protein [Mass/Vol] 6.5 g/dL Normal 6.1-8.1 [facility] Comment on above: Performed By: #### 1 0165, 6399 #### [facility] [address], [address] [place] [address] Electrical Wirer: Chava Ness MD Sodium [Moles/Vol] 140 mmol/L Normal 135-146 [facility] Comment on above: Performed By: #### 1 0165, 6399 #### [facility] [place] [address] Electrical Wirer: Chava Ness MD Urea nitrogen [Mass/Vol] 19 mg/dL Normal 7-25 [facility] Comment on above: Performed By: #### 1 0165, 6399 #### [facility] [place] [address] Electrical Wirer: Chava Ness MD Urea nitrogen/Creatinine [Mass ratio] 17 mg/mg Normal 6-22 [facility] Comment on above: Performed By: #### 1 0165, 6399 #### [facility] [place] [address] Electrical Wirer: Chava Ness MD CULTURE, URINE, ROUTINEon Bacteria identified Cx Nom (U) SEE NOTE Abnormal [facility] Comment on above: Result Comment: CULTURE, URINE, ROUTINE Micro Number: [id number] Test Status: Final Specimen Source: Urine Specimen [...] 1 0165, 6399 #### [facility] [address], [address] [place] [address] Electrical Wirer: Chava Ness MD LIPID PANEL, [facility] 03-28 Cholesterol [Mass/Vol] 159 mg/dL Normal <200 [facility] Comment on above: Order Comment: FASTI NG:NOFASTING: NO Performed By: #### 1 0165, 6399 #### [facility] [address], [address] [place] [address] Electrical Wirer: Chava Ness MD Cholesterol in HDL [Mass/Vol] 50 mg/dL Normal > OR = 50 [facility] Comment on above: Order Comment: FASTI NG:NOFASTING: NO Performed By: #### 1 0165, 6399 #### [facility] [address], [address] [place] [address] Electrical Wirer: Chava Ness MD Cholesterol in LDL [Mass/Vol] 70 mg/dL Normal [facility] Comment on above: Order Comment: FASTI NG:NOFASTING: NO Result Comment: Refe rence range: <100 Desirable range <100 mg/dL for primary prevention; <70 mg/dL for patients with CHD or diabetic patients with > or = 2 CHD risk factors. LDL-C is now calculated using the Boni-Joaquin calculation, which is a validated novel method providing better accuracy than the Friedewald equation in the estimation of LDL-C. Boni BARNES et al. VARSHA. 2013;310(19): 7409-9951 (http://education.Nexercise.[employer]/faq/MDN398) Performed By: #### 1 0165, 6399 #### [facility] [address], [address] [place] [address] Electrical Wirer: Chava Ness MD Cholesterol.total/Ch olesterol in HDL [Mass ratio] 3.2 {ratio} Normal <5.0 [facility] Comment on above: Order Comment: FASTI NG:NOFASTING: NO Performed By: #### 1 0165, 6399 #### [facility] [place] [address] Electrical Wirer: Chava Ness MD NON HDL CHOLESTEROL 109 mg/dL (calc) Normal <130 [facility] Comment on above: Order Comment: FASTI NG:NOFASTING: NO Result Comment: For patients with diabetes plus 1 major ASCVD risk factor, treating to a non-HDL-C goal of <100 mg/dL (LDL-C of <70 mg/dL) is considered a therapeutic option. Performed By: #### 1 0165, 6399 #### [facility] [place] [address] Electrical Wirer: hCava Ness MD Triglyceride [Mass/Vol] 323 mg/dL High <150 [facility] Comment on above: Order Comment: FASTI NG:NOFASTING: NO Result Comment: If a non-fasting specimen was collected, consider repeat triglyceride testing on a fasting specimen if clinically indicated. Clint et al. J. of Clin. Lipidol. 2015;9:129-169. Performed By: #### 1 016, 6399 #### [facility] [place] [address] Electrical Wirer: Chava Ness MD MAGNESIUMon 04-07-2022 Magnesium [Mass/Vol] 1.9 mg/dL Normal 1.5-2.5 [facility] Comment on above: Performed By: #### 1 016, 6399 #### [facility] [place] [address] Electrical Wirer: Chava Ness MD PHOSPHATE ( PHOSPHORUS)on 04-07-2022 Phosphate [Mass/Vol] 4.0 mg/dL Normal 2.1-4.3 [facility] Comment on above: Performed By: #### 1 0165, 6399 #### [facility] [place] [address] Electrical Wirer: Chava Ness MD PTH, INTACT WITHOUT CALCIUMo [...] #### 1 0165, 6399 #### [facility] [place] [address] Electrical Wirer: Chava Ness MD URIC ACIDon 04-07-2022 Urate [Mass/Vol] 4.0 mg/dL Normal 2.5-7.0 [facility] Comment on above: Result Comment: Ther apeutic target for gout patients: <6.0 mg/dL Performed By: #### 1 0165, 6399 #### [facility] [place] [address] Electrical Wirer: Chava Ness MD URINALYSIS, COMPLETEon 04-07 Appearance (U) CLOUDY Abnormal CLEAR [facility] Comment on above: Performed By: #### 1 0165, 6399 #### [facility] [place] [address] Electrical Wirer: Chava Ness MD BACTERIA MANY Abnormal NONE SEEN [facility] Comment on above: Performed By: #### 1 0165, 6399 #### [facility] [place] [address] Electrical Wirer: Chava Ness MD Bilirubin Ql (U) Negative Normal NEGATIVE [facility] Comment on above: Performed By: #### 1 0165, 6399 #### [facility] [place] [address] Electrical Wirer: Chava Ness MD Color (U) YELLOW Normal YELLOW [facility] Comment on above: Performed By: #### 1 0165, 6399 #### [facility] [place] [address] Electrical Wirer: Chava Ness MD Glucose Ql (U) Negative Normal NEGATIVE [facility] Comment on above: Performed By: #### 1 0165, 6399 #### [facility] [place] [address] Electrical Wirer: Chava Ness MD HYALINE CAST 0-5 Abnormal NONE SEEN [facility] Comment on above: Performed By: #### 1 0165, 6399 #### [facility] [place] [address] Electrical Wirer: Chava Ness MD Ketones Ql (U) Negative Normal NEGATIVE [facility] Comment on above: Performed By: #### 1 0165, 6399 #### [facility] [place] [address] Electrical Wirer: Chava Ness MD Leukocyte esterase Test strip Ql (U) 3+ Abnormal NEGATIVE [facility] Comment on above: Performed By: #### 1 0165, 6399 #### [facility] [place] [address] Electrical Wirer: Chava Ness MD Nitrite Ql (U) Negative Normal NEGATIVE [facility] Comment on above: Performed By: #### 1 0165, 6399 #### [facility] [place] [address] Electrical Wirer: Chava Ness MD OCCULT BLOOD TRACE Abnormal NEGATIVE [facility] Comment on above: Performed By: #### 1 0165, 6399 #### [facility] of [place] [address] Electrical Wirer: Chava Ness MD pH (U) 6.5 [pH] Normal 5.0-8.0 [facility] Comment on above: Performed By: #### 1 0165, 6399 #### [facility] of [place] [address] Electrical Wirer: Chava Ness MD Protein Ql (U) Negative Normal NEGATIVE [facility] Comment on above: Performed By: #### 1 0165, 6399 #### [facility] of [address], [address] [place] [address] Electrical Wirer: Chava Ness MD RBC NONE SEEN Normal < OR = 2 [facility] Comment on above: Performed By: #### 1 0165, 6399 #### [facility] of [address], [address] [place] [address] Electrical Wirer: Chava Ness MD Specific gravity (U) [Rel density] 1.008 Normal 1.001-1.035 [facility] Comment on above: Performed By: #### 1 0165, 6399 #### [facility] of [address], [address] [place] [address] Electrical Wirer: Chava Ness MD SQUAMOUS EPITHELIAL CELLS NONE SEEN Normal < OR = 5 [facility] Comment on above: Performed By: #### 1 0165, 6399 #### [facility] of [address], [address] [place] [address] Electrical Wirer: Chava Ness MD WBC (U) [#/Vol] /uL Abnormal < OR = 5 [facility] Comment on above: Performed By: #### 1 0165, 6399 #### [facility] [place] [address] Electrical Wirer: Chava Ness MD VITAMIN D,25-OH,TOTAL,IAon 0 04-07-2022 [...] D, (D2,D3), LC/MS/MS is recommended: order code 75770 (patients >2yrs). See Note 1 Note 1 For additional information, please refer to http://education.Nexercise.[employer]/faq/FHC510 (This link is being provided for informational/ educational purposes only.) Performed By: #### 1 0165, 6399 #### [facility] [place] [address] Electrical Wirer: Chava Ness MD BASIC METABOLIC PANELon 12-0 Calcium [Mass/Vol] 9.4 mg/dL Normal 8.6-10.4 [facility] Comment on above: Performed By: #### 7 93, 5616, 42343, 34479, 6399 #### [facility] [address], [address] [place] [address] Electrical Wirer: Chava Ness MD Chloride [Moles/Vol] 105 mmol/L Normal 98-110 [facility] Comment on above: Performed By: #### 7 93, 5616, 45875, 18647, 6399 #### [facility] [place] [address] Electrical Wirer: Chava Ness MD CO2 [Moles/Vol] 24 mmol/L Normal 20-32 [facility] Comment on above: Performed By: #### 7 93, 5616, 91985, 08035, 6399 #### [facility] [place] [address] Electrical Wirer: Chava Ness MD Creatinine [Mass/Vol] 1.20 mg/dL High 0.60-0.93 [facility] Comment on above: Result Comment: For patients >49 years of age, the reference limit for Creatinine is approximately 13% higher for people identified as -Djiboutian. Performed By: #### 7 93, 5616, 01858, 57226, 6399 #### [facility] [place] [address] Electrical Wirer: Chava Ness MD eGFR NON-AFR. ISRAELI 43 mL/min/1.73m2 Low > OR = 60 [facility] Comment on above: Performed By: #### 7 93, 5616, 27003, 29301, 6399 #### [facility] [address] [place] [address] Electrical Wirer: Chava Ness MD GFR/1.73 sq M.predicted among blacks MDRD (S/P/Bld) [Vol rate/Area] 50 mL/min/{1.73_m2} Low > OR = 60 [facility] Comment on above: Performed By: #### 7 93, 5616, 58434, 35600, 6399 #### [facility] [place] [address] Electrical Wirer: Chava Ness MD Glucose [Mass/Vol] 100 mg/dL High 65-99 [facility] Comment on above: Result Comment: Fasting reference interval For someone without known diabetes, a glucose value between 100 and 125 mg/dL is consistent with prediabetes and should be confirmed with a follow-up test. Performed By: #### 7 93, 5616, 66301, 44375, 6399 #### [facility] [place] [address] Electrical Wirer: Chava Ness MD Potassium [Moles/Vol] 4.2 mmol/L Normal 3.5-5.3 [facility] Comment on above: Performed By: #### 7 93, 5616, 09679, 70588, 6399 #### [facility] [place] [address] Electrical Wirer: Chava Ness MD Sodium [Moles/Vol] 138 mmol/L Normal 135-146 [facility] Comment on above: Performed By: #### 7 93, 5616, 68539, 77570, 6399 #### [facility] [place] [address] Electrical Wirer: Chava Ness MD Urea nitrogen [Mass/Vol] 35 mg/dL High 7-25 [facility] Comment on above: Performed By: #### 7 93, 5616, 08844, 24464, 6399 #### [facility] [address], [address] [place] [address] Electrical Wirer: Chava Ness MD Urea nitrogen/Creatinine [Mass ratio] 29 mg/mg High 6-22 [facility] Comment on above: Performed By: #### 7 93, 5616, 46388, 29246, 6399 #### [facility] of [place] [address] Electrical Wirer: Chava Ness MD CBC (INCLUDES DIFF/PLT)on Basophils (Bld) [#/Vol] 0.033 10*3/uL Normal 0-200 [facility] Comment on above: Performed By: #### 7 93, 5616, 28045, 38205, 6399 #### [facility] of [place] [address] Electrical Wirer: Chava Ness MD Basophils/100 WBC (Bld) 0.5 % Normal [facility] Comment on above: Performed By: #### 7 93, 5616, 94993, 82004, 6399 #### [facility] of [place] [address] Electrical Wirer: Chava Ness MD Eosinophils (Bld) [#/Vol] 0.111 10*3/uL Normal 15-500 [facility] Comment on above: Performed By: #### 7 93, 5616, 16128, 03226, 6399 #### [facility] of [place] [address] Electrical Wirer: Chava Ness MD Eosinophils/100 WBC (Bld) 1.7 % Normal [facility] Comment on above: Performed By: #### 7 93, 5616, 10031, 70836, 6399 #### [facility] [place] [address] Electrical Wirer: Chava Ness MD Erythrocyte distribution width (RBC) [Ratio] 14.9 % Normal 11.0-15.0 [facility] Comment on above: Performed By: #### 7 93, 5616, 21165, 71639, 6399 #### [facility] [place] [address] Electrical Wirer: Chava Ness MD Hematocrit (Bld) [Volume fraction] 30.0 % Low 35.0-45.0 [facility] Comment on above: Performed By: #### 7 93, 5616, 80784, 03717, 6399 #### [facility] [place] [address] Electrical Wirer: Chava Ness MD Hemoglobin (Bld) [Mass/Vol] 9.2 g/dL Low 11.7-15.5 [facility] Comment on above: Performed By: #### 7 93, 561, 31713, 45828, 6399 #### [facility] [place] [address] Electrical Wirer: Chava Ness MD Lymphocytes (Bld) [#/Vol] 0.995 10*3/uL Normal 850-3900 [facility] Comment on above: Performed By: #### 7 93, 5615, , 52969, 6399 #### [facility] [place] [address] Electrical Wirer: Chava Ness MD Lymphocytes/100 WBC (Bld) 15.3 % Normal [facility] Comment on above: Performed By: #### 7 93, 5616, 88638, 56722, 6399 #### [facility] [place] [address] Electrical Wirer: Chava Ness MD MCH (RBC) [Entitic mass] 26.3 pg Low 27.0-33.0 [facility] Comment on above: Performed By: #### 7 93, 561, 01778, 48815, 6399 #### [facility] [place] [address] Electrical Wirer: Chava Ness MD MCHC (RBC) [Mass/Vol] 30.7 g/dL Low 32.0-36.0 [facility] Comment on above: Performed By: #### 7 93, 561, 48712, 80502, 6399 #### [facility] [place] [address] [place] [address] Electrical Wirer: Chava Ness MD MCV (RBC) [Entitic vol] 85.7 fL Normal 80.0-100.0 [facility] Comment on above: Performed By: #### 7 93, 5616, 55642, 13691, 6399 #### [facility] [place] [address] Electrical Wirer: Chava Ness MD Monocytes (Bld) [#/Vol] 0.514 10*3/uL Normal 200-950 [facility] Comment on above: Performed By: #### 7 93, 5616, 02199, 31253, 6399 #### [facility] [place] [address] Electrical Wirer: Chava Ness MD Monocytes/100 WBC (Bld) 7.9 % Normal [facility] Comment on above: Performed By: #### 7 93, 5616, 10145, 65422, 6399 #### [facility] [place] [address] Electrical Wirer: Chava Ness MD Neutrophils (Bld) [#/Vol] 4.849 10*3/uL Normal 4615-6259 [facility] Comment on above: Performed By: #### 7 93, 5616, 89918, 44893, 6399 #### [facility] [place] [address] Electrical Wirer: Chava Ness MD Neutrophils/100 WBC (Bld) 74.6 % Normal [facility] Comment on above: Performed By: #### 7 93, 5616, 17104, 93844, 6399 #### [facility] [place] [address] Electrical Wirer: Chava Ness MD Platelet mean volume (Bld) [Entitic vol] 9.7 fL Normal 7.5-12.5 [facility] Comment on above: Performed By: #### 7 93, 5616, 10932, 67588, 6399 #### [facility] [place] [address] Electrical Wirer: Chava Ness MD Platelets (Bld) [#/Vol] 342 10*3/uL Normal 140-400 [facility] Comment on above: Performed By: #### 7 93, 5616, 18372, 45022, 6399 #### [facility] [place] [address] Electrical Wirer: Chava Ness MD RBC (Bld) [#/Vol] 3.50 10*6/uL Low 3.80-5.10 [facility] Comment on above: Performed By: #### 7 93, 5616, 38148, 86077, 6399 #### [facility] [place] [address] Electrical Wirer: Chava Ness MD WBC (Bld) [#/Vol] 6.5 10*3/uL Normal 3.8-10.8 [facility] Comment on above: Performed By: #### 7 93, 5616, 51025, 50639, 6399 #### [facility] [place] [address] Electrical Wirer: Chava Ness MD IRON, TIBC AND FERRITIN [facility] 10-03-2021 % SATURATION 7 % (calc) Low 16-45 [facility] Comment on above: Performed By: #### 7 93, 5616, 32107, 94989, 6399 #### [facility] [place] [address] Electrical Wirer: Chava Ness MD Ferritin [Mass/Vol] 3 ng/mL Low 16-288 [facility] Comment on above: Performed By: #### 7 93, 5616, 99959, 20089, 6399 #### [facility] [place] [address] Electrical Wirer: Chava Ness MD IRON BINDING CAPACITY 463 mcg/dL (calc) High 250-450 [facility] Comment on above: Performed By: #### 7 93, 5616, 44520, 77000, 6399 #### [facility] of [address], [address] [place] [address] Electrical Wirer: Chava Ness MD IRON, TOTAL 33 mcg/dL Low 45-160 [facility] Comment on above: Performed By: #### 7 93, 5616, 20671, 12073, 6399 #### [facility] [place] [address] Electrical Wirer: Chava Ness MD RETICULOCYTE COUNTon 021 RETICULOCYTE COUNT, AUTOMATED 2.7 % Normal [facility] Comment on above: Performed By: #### 7 93, 5616, 41027, 74051, 6399 #### [facility] [place] [address] Electrical Wirer: Chava Ness MD RETICULOCYTE, ABSOLUTE 68345 cells/uL High [address]82[address] [facility] Comment on above: Performed By: #### 7 93, 5616, 76978, 50521, 6399 #### [facility] [place] [address] Electrical Wirer: Chava Ness MD TSH W/REFLEX TO FT4on 2020 TSH W/REFLEX TO FT4 1.88 mIU/L Normal 0.40-4.50 [facility] Comment on above: Performed By: #### 1 0165, 6399 #### [facility] [place] [address] Electrical Wirer: Chava Ness MD VITAMIN B12on 10-03-2021 Cobalamin (Vitamin B12) [Mass/Vol] 497 pg/mL Normal 200-1100 [facility] Comment on above: Performed By: #### 7 93, 5616, 18611, 25206, 6399 #### [facility] [place] [address] Electrical Wirer: Chava Ness MD BASIC METABOLIC PANELon 08-29 Calcium [Mass/Vol] 9.1 mg/dL Normal 8.6-10.4 [facility] Comment on above: Performed By: #### 1 0165, 6399 #### [facility] [place] [address] Electrical Wirer: Chava Ness MD Chloride [Moles/Vol] 107 mmol/L Normal 98-110 [facility] Comment on above: Performed By: #### 1 0165, 6399 #### [facility] [place] [address] Electrical Wirer: Chava Ness MD CO2 [Moles/Vol] 23 mmol/L Normal 20-32 [facility] Comment on above: Performed By: #### 1 0165, 6399 #### [facility] [place] [address] Electrical Wirer: Chava Ness MD Creatinine [Mass/Vol] 1.62 mg/dL High 0.60-0.93 [facility] Comment on above: Result Comment: For patients >49 years of age, the reference limit for Creatinine is approximately 13% higher for people identified as -Djiboutian. Performed By: #### 1 0165, 6399 #### [facility] [place] [address] Electrical Wirer: Chava Ness MD eGFR NON-AFR. ISRAELI 30 mL/min/1.73m2 Low > OR = 60 [facility] Comment on above: Performed By: #### 1 0165, 6399 #### [facility] [place] [address] Electrical Wirer: Chava Ness MD GFR/1.73 sq M.predicted among blacks MDRD (S/P/Bld) [Vol rate/Area] 35 mL/min/{1.73_m2} Low > OR = 60 [facility] Comment on above: Performed By: #### 1 0165, 6399 #### [facility] [place] [address] Electrical Wirer: Chava Ness MD Glucose [Mass/Vol] 100 mg/dL High 65-99 [facility] Comment on above: Result Comment: Fasting reference interval For someone without known diabetes, a glucose value between 100 and 125 mg/dL is consistent with prediabetes and should be confirmed with a follow-up test. Performed By: #### 1 0165, 6399 #### [facility] [place] [address] Electrical Wirer: Chava Ness MD Potassium [Moles/Vol] 4.3 mmol/L Normal 3.5-5.3 [facility] Comment on above: Performed By: #### 1 0165, 6399 #### [facility] [place] [address] Electrical Wirer: Chava Ness MD Sodium [Moles/Vol] 139 mmol/L Normal 135-146 [facility] Comment on above: Performed By: #### 1 0165, 6399 #### [facility] [place] [address] Electrical Wirer: Chava Ness MD Urea nitrogen [Mass/Vol] 37 mg/dL High 7-25 [facility] Comment on above: Performed By: #### 1 0165, 6399 #### [facility] [place] [address] Electrical Wirer: Chava Ness MD Urea nitrogen/Creatinine [Mass ratio] 23 mg/mg High 6-22 [facility] Comment on above: Performed By: #### 1 0165, 6399 #### [facility] [place] [address] Electrical Wirer: Chava Ness MD CBC (INCLUDES DIFF/PLT)on Basophils (Bld) [#/Vol] 0.028 10*3/uL Normal 0-200 [facility] Comment on above: Performed By: #### 1 0165, 6399 #### [facility] [place] [address] Electrical Wirer: Chava Ness MD Basophils/100 WBC (Bld) 0.5 % Normal [facility] Comment on above: Performed By: #### 1 0165, 6399 #### [facility] [place] [address] Electrical Wirer: Chava Ness MD Eosinophils (Bld) [#/Vol] 0.132 10*3/uL Normal 15-500 [facility] Comment on above: Performed By: #### 1 0165, 6399 #### [facility] [place] [address] Electrical Wirer: Chava Ness MD Eosinophils/100 WBC (Bld) 2.4 % Normal [facility] Comment on above: Performed By: #### 1 0165, 6399 #### [facility] [place] [address] Electrical Wirer: Chava Ness MD Erythrocyte distribution width (RBC) [Ratio] 14.5 % Normal 11.0-15.0 [facility] Comment on above: Performed By: #### 1 0165, 6399 #### [facility] [place] [address] Electrical Wirer: Chava Ness MD Hematocrit (Bld) [Volume fraction] 29.4 % Low 35.0-45.0 [facility] Comment on above: Performed By: #### 1 0165, 6399 #### [facility] [place] [address] Electrical Wirer: Chava Ness MD Hemoglobin (Bld) [Mass/Vol] 9.2 g/dL Low 11.7-15.5 [facility] Comment on above: Performed By: #### 1 0165, 6399 #### [facility] [place] [address] Electrical Wirer: Chava Ness MD Lymphocytes (Bld) [#/Vol] 1.612 10*3/uL Normal 850-3900 [facility] Comment on above: Performed By: #### 1 0165, 6399 #### [facility] of [address], [address] [place] [address] Electrical Wirer: Chava Ness MD Lymphocytes/100 WBC (Bld) 29.3 % Normal [facility] Comment on above: Performed By: #### 1 0165, 6399 #### [facility] [place] [address] Electrical Wirer: Chava Ness MD MCH (RBC) [Entitic mass] 26.4 pg Low 27.0-33.0 [facility] Comment on above: Performed By: #### 1 0165, 6399 #### [facility] [place] [address] Electrical Wirer: Chava Ness MD MCHC (RBC) [Mass/Vol] 31.3 g/dL Low 32.0-36.0 [facility] Comment on above: Performed By: #### 1 0165, 6399 #### [facility] [place] [address] Electrical Wirer: Chava Ness MD MCV (RBC) [Entitic vol] 84.5 fL Normal 80.0-100.0 [facility] Comment on above: Performed By: #### 1 0165, 6399 #### [facility] [place] [address] Electrical Wirer: Chava Ness MD Monocytes (Bld) [#/Vol] 0.55 10*3/uL Normal 200-950 [facility] Comment on above: Performed By: #### 1 0165, 6399 #### [facility] [place] [address] Electrical Wirer: Chava Ness MD Monocytes/100 WBC (Bld) 10.0 % Normal [facility] Comment on above: Performed By: #### 1 0165, 6399 #### [facility] [place] [address] Electrical Wirer: Chava Ness MD Neutrophils (Bld) [#/Vol] 3.179 10*3/uL Normal 4257-4290 [facility] Comment on above: Performed By: #### 1 0165, 6399 #### [facility] [place] [address] Electrical Wirer: Chava Ness MD Neutrophils/100 WBC (Bld) 57.8 % Normal [facility] Comment on above: Performed By: #### 1 0165, 6399 #### [facility] of [address], [address] [place] [address] Electrical Wirer: Chava Ness MD Platelet mean volume (Bld) [Entitic vol] 9.8 fL Normal 7.5-12.5 [facility] Comment on above: Performed By: #### 1 0165, 6399 #### [facility] [place] [address] Electrical Wirer: Chava Ness MD Platelets (Bld) [#/Vol] 327 10*3/uL Normal 140-400 [facility] Comment on above: Performed By: #### 1 0165, 6399 #### [facility] of [address], [address] [place] [address] Electrical Wirer: Chava Ness MD RBC (Bld) [#/Vol] 3.48 10*6/uL Low 3.80-5.10 [facility] Comment on above: Performed By: #### 1 0165, 6399 #### [facility] [place] [address] Electrical Wirer: Chava Ness MD WBC (Bld) [#/Vol] 5.5 10*3/uL Normal 3.8-10.8 [facility] Comment on above: Performed By: #### 1 0165, 6399 #### [facility] [place] [address] Electrical Wirer: Chava Ness MD COMPREHENSIVE METABOLIC PANE [facility] 08-03-2021 Albumin [Mass/Vol] 4.3 g/dL Normal 3.6-5.1 [facility] Comment on above: Performed By: #### 7 600, 76963 #### [facility] of [address], [address] [place] [address] Electrical Wirer: Chava Ness MD Albumin/Globulin [Mass ratio] 1.5 {ratio} Normal 1.0-2.5 [facility] Comment on above: Performed By: #### 7 600, 14150 #### [facility] [place] [address] Electrical Wirer: Chava Ness MD ALP [Catalytic activity/Vol] 43 U/L Normal 37-153 [facility] Comment on above: Performed By: #### 7 600, 22691 #### [facility] of [address], [address] [place] [address] Electrical Wirer: Chava Ness MD ALT [Catalytic activity/Vol] 15 U/L Normal 6-29 [facility] Comment on above: Performed By: #### 7 600, 12886 #### [facility] [place] [address] Electrical Wirer: Chava Ness MD AST [Catalytic activity/Vol] 16 U/L Normal 10-35 [facility] Comment on above: Performed By: #### 7 600, 28000 #### [facility] [place] [address] Electrical Wirer: Chava Ness MD Bilirubin [Mass/Vol] 0.6 mg/dL Normal 0.2-1.2 [facility] Comment on above: Performed By: #### 7 600, 72838 #### [facility] [place] [address] Electrical Wirer: Chava Ness MD Calcium [Mass/Vol] 9.7 mg/dL Normal 8.6-10.4 [facility] Comment on above: Performed By: #### 7 600, 15312 #### [facility] of [address], [address] [place] [address] Electrical Wirer: Chava Ness MD Chloride [Moles/Vol] 105 mmol/L Normal 98-110 [facility] Comment on above: Performed By: #### 7 600, 74017 #### [facility] [place] [address] Electrical Wirer: Chava Ness MD CO2 [Moles/Vol] 23 mmol/L Normal 20-32 [facility] Comment on above: Performed By: #### 7 600, 71439 #### [facility] [place] [address] Electrical Wirer: Chava Ness MD Creatinine [Mass/Vol] 1.10 mg/dL High 0.60-0.93 [facility] Comment on above: Result Comment: For patients >49 years of age, the reference limit for Creatinine is approximately 13% higher for people identified as -Djiboutian. Performed By: #### 7 600, 58290 #### [facility] [address], [address] [place] [address] Electrical Wirer: Chava Ness MD eGFR NON-AFR. ISRAELI 48 mL/min/1.73m2 Low > OR = 60 [facility] Comment on above: Performed By: #### 7 600, 41896 #### [facility] [place] [address] Electrical Wirer: Chava Ness MD GFR/1.73 sq M.predicted among blacks MDRD (S/P/Bld) [Vol rate/Area] 56 mL/min/{1.73_m2} Low > OR = 60 [facility] Comment on above: Performed By: #### 7 600, 69743 #### [facility] [address], [address] [place] [address] Electrical Wirer: Chava Ness MD Globulin (S) [Mass/Vol] 2.9 g/dL Normal 1.9-3.7 [facility] Comment on above: Performed By: #### 7 600, 51859 #### [facility] [place] [address] Electrical Wirer: Chava Ness MD Glucose [Mass/Vol] 118 mg/dL High 65-99 [facility] Comment on above: Result Comment: Fasting reference interval For someone without known diabetes, a glucose value between 100 and 125 mg/dL is consistent with prediabetes and should be confirmed with a follow-up test. Performed By: #### 7 600, [id number] #### [facility] [place] [address] Electrical Wirer: Chava Ness MD Potassium [Moles/Vol] 4.8 mmol/L Normal 3.5-5.3 [facility] Comment on above: Performed By: #### 7 600, [id number] #### [facility] [place] [address] Electrical Wirer: Chava Ness MD Protein [Mass/Vol] 7.2 g/dL Normal 6.1-8.1 [facility] Comment on above: Performed By: #### 7 600, [id number] #### [facility] [place] [address] Electrical Wirer: Chava Ness MD Sodium [Moles/Vol] 139 mmol/L Normal 135-146 [facility] Comment on above: Performed By: #### 7 600, [id number] #### [facility] [place] [address] Electrical Wirer: Chava Ness MD Urea nitrogen [Mass/Vol] 24 mg/dL Normal 7-25 [facility] Comment on above: Performed By: #### 7 600, [id number] #### [facility] [place] [address] Electrical Wirer: Chava Ness MD Urea nitrogen/Creatinine [Mass ratio] 22 mg/mg Normal 6-22 [facility] Comment on above: Performed By: #### 7 600, [id number] #### [facility] [place] [address] Electrical Wirer: Chava Ness MD LIPID PANEL, [facility] 10-0 Cholesterol [Mass/Vol] 163 mg/dL Normal <200 [facility] Comment on above: Order Comment: FASTI NG:YES FASTING: YES Performed By: #### 7 600, [id number] #### [facility] [address], [address] [place] [address] Electrical Wirer: Chava Ness MD Cholesterol in HDL [Mass/Vol] 51 mg/dL Normal > OR = 50 [facility] Comment on above: Order Comment: FASTI NG:YES FASTING: YES Performed By: #### 7 600, [id number] #### [facility] [address], [address] [place] [address] Electrical Wirer: Chava Ness MD Cholesterol in LDL [Mass/Vol] [...] equation in the estimation of LDL-C. Boni BARNES et al. VARSHA. 2013;310(19): 0484-0287 (http://education.[facility]/faq/XNM739) Performed By: #### 7 600, 72758 #### [facility] [address], [address] [place] [address] Electrical Wirer: Chava Ness MD Cholesterol.total/Ch olesterol in HDL [Mass ratio] 3.2 {ratio} Normal <5.0 [facility] Comment on above: Order Comment: FASTI NG:YES FASTING: YES Performed By: #### 7 600, [id number] #### [facility] [address], [address] [place] [address] Electrical Wirer: Chava Ness MD NON HDL CHOLESTEROL 112 mg/dL (calc) Normal <130 [facility] Comment on above: Order Comment: FASTI NG:YES FASTING: YES Result Comment: For patients with diabetes plus 1 major ASCVD risk factor, treating to a non-HDL-C goal of <100 mg/dL (LDL-C of <70 mg/dL) is considered a therapeutic option. Performed By: #### 7 600, [id number] #### [facility] [address] [facility], [address] [place] [address] Electrical Wirer: Chava Ness MD Triglyceride [Mass/Vol] 269 mg/dL High <150 [facility] Comment on above: Order Comment: FASTI NG:YES FASTING: YES Result Comment: If a non-fasting specimen was collected, consider repeat triglyceride testing on a fasting specimen if clinically indicated. Clint et al. J. of Clin. Lipidol. 2015;9:129-169. Performed By: #### 7 600, [id number] #### [facility] [address] [facility], [address] [place] [address] Electrical Wirer: Chava Ness MD Vital Signs Date Time Vital Sign Value Performing Clinician Facility 09-17-2024 13:51-0500 Body mass index (BMI) [Ratio] 20.14 kg/m2 [email or web address] 09-17-2024 13:51-0500 Body temperature 96.6 [degF] [facility] 09-17-2024 13:51-0500 Body weight 56.61 kg [email or web address] 09-17-2024 13:51-0500 Diastolic blood pressure 52 mm[Hg] [facility] DO [facility]: [email or web address] 09-17-2024 13:51-0500 Heart rate 86 /min [facility]: [email or web address] 09-17-2024 13:51-0500 SaO2% (BldA) [Mass fraction] 98 % [facility]: [email or web address] 09-17-2024 13:51-0500 Systolic blood pressure 102 mm[Hg] [facility] Work Phone: [employer] [facility] 12-12-2023 15:21-0500 Body height 167.6 cm Lenard Ortiz DO [email or web address] 12-12-2023 15:21-0500 Body mass index (BMI) [Ratio] 21.24 kg/m2 Lenard Ortiz DO [email or web address] 12-12-2023 15:21-0500 Body temperature 97.39 [degF] Lenard Ortiz DO Work Phone: [facility] [employer] 12-12-2023 15:21-0500 Body weight 59.69 kg Lenard Ortiz DO Work Phone: [facility] [employer] 12-12-2023 15:21-0500 SaO2% (BldA) [Mass fraction] 94 % Lenard Ortiz DO Work Phone: [facility] [employer] Encounters Encounter Date Encounter Type Care Provider Facility Start: 09-18-2024 End: 09-18-2024 Orders Only Lenard Ortiz DO Work Phone: [facility] Start: 09-17-2024 End: 09-17-2024 Office outpatient visit 15 minutes Lenard Ortiz DO Work Phone: [facility] Comment on above: COPD exacerbation (C MS-HCC) (Primary Dx) Start: 09-17-2024 End: 09-17-[address] [facility] Start: 08-28-2024 End: 08-28-2024 Refill Lenard Ortiz DO Work Phone: [facility] Comment on above: Hypokalemia Start: 08-09-2024 End: 08-09-2024 Refill [facility] Comment on above: Neuropathic postherp etic trigeminal neuralgia Start: 06-25-2024 End: 06-25-2024 ambulatory [facility] Start: 05-12-2024 End: 05-12-2024 ambulatory LENARD Talita [facility] Start: 05-12-2024 End: 05-12-2024 ambulatory [facility] Start: 05-05-2024 End: 05-05-2024 ambulatory LENARD G [facility] Start: 12-13-2023 End: 12-13-[address] [facility] Start: 12-12-2023 End: 12-12-2023 Office outpatient visit 25 minutes Lenard Talita Ortiz DO [facility] Phone[facility] Comment on above: Orthostatic hypotens ion (Primary Dx); Hypertensive kidney disease with stage 3a chronic kidney disease ([facility]); Essential hypertension; Iron deficiency anemia, unspecified iron deficiency anemia type; Essential (primary) hypertension Start: 12-12-2023 End: 12-12-2023 ambulatory [facility] Start: 12-05-2023 Telephone encounter Lenard Sanon Gonzalez gio DO [facility] Start: 11-12-2023 End: 11-12-2023 ambulatory PULASKI Talita [facility] Start: 11-12-2023 End: 11-12-2023 ambulatory [facility] Start: 09-12-2022 End: 09-13-2022 ambulatory LENARD JONASFLORENCIO Facility:H1 Procedures Date Procedure Procedure Detail Performing Clinician Start: 09-17-2024 Adult depression screening assessment Lenard Ortiz DO Work Phone: Start: 05-12-2024 Adult depression screening assessment Lenard Diana DO Work Phone: Start: 12-12-2023 Adult depression screening assessment Lneard Diana DO Work Phone: Start: 11-12-2023 Adult depression screening assessment Lenard Ortiz DO Work Phone: Plan of Treatment Date Care Activity Detail Author Start: 09-12-2027 DTaP,Tdap and Td Vaccines (2 - Td or Tdap) DTaP,Tdap and Td Vaccines (2 - Td or Tdap) [facility] Start: 09-17-2025 Depression Screening Depression Screening [facility] Start: 09-17-2025 Fall Risk Screening Fall Risk Screening [facility] Start: 09-17-2025 Tobacco Screening Tobacco Screening [facility] Start: 06-25-2025 Adult BMI Screening Adult BMI Screening [facility] Start: 06-25-2025 Fall Risk Screening Fall Risk Screening [facility] Start: 06-25-2025 Tobacco Screening Tobacco Screening [facility] Start: 05-12-2025 Depression Screening Depression Screening [facility] Start: 05-05-2025 Medicare Annual Wellness Visit Medicare Annual Wellness Visit [facility] Start: 12-12-2024 Adult BMI Screening Adult BMI Screening [facility] Start: 12-12-2024 Depression Screening Depression Screening [facility] Start: 12-12-2024 Fall Risk Screening Fall Risk Screening [facility] Start: 12-12-2024 Tobacco Screening Tobacco Screening [facility] Start: 11-12-2024 Adult BMI Screening Adult BMI Screening [facility] Start: 11-12-2024 Depression Screening Depression Screening [facility] Start: 11-12-2024 Fall Risk Screening Fall Risk Screening [facility] Start: 11-12-2024 Tobacco Screening Tobacco Screening [facility] Start: 10-06-2024 Administration of varicella zoster vaccine Zoster (Shingles) Vaccine (2 of 2) [facility] Start: 06-28-2024 COVID-19 Vaccine ( season) COVID-19 Vaccine ( season) [facility] Start: 06-28-2024 COVID-19 Vaccine ( season) COVID-19 Vaccine ( season) [facility] Start: 06-28-2024 Influenza vaccination Influenza Vaccine [facility] Start: 05-12-2024 End: 05-12-2024 Patient encounter procedure 05/12/2024 2:00 PM EDT Office Visit [facility] [address] [place] [id number] Lenard Ortiz DO [address] [place] [address] [facility] Start: 04-28-2024 End: 04-28-2024 Patient encounter procedure 04/28/2024 4:00 PM EDT [facility] [address] [place] [id number] [facility] Start: 04-23-2024 Medicare Annual Wellness Visit Medicare Annual Wellness Visit [facility] Start: 06-28-2023 COVID-19 Vaccine ( season) COVID-19 Vaccine ( season) [facility] Start: 1964 Administration of varicella zoster vaccine Zoster (Shingles) Vaccine (1 of 2) [facility] Immunizations Immunization Date Immunization Notes Care Provider Fa cility 08-11-2024 zoster vaccine, unspecified formulation Lenard Furlong DO Work Phone: [facility] 08-27-2022 Influenza, High-dose , Quadrivalent Lenard Furlong DO Work Phone: [facility] 08-27-2022 influenza virus vacc ine, unspecified formulation Lenard Furlong DO Work Phone: [facility] 08-25-2021 influenza, seasonal, injectable Lenard Furlong DO Work Phone: [facility] 08-15-2021 Influenza, High-dose , Quadrivalent Lenard Furlong DO Work Phone: [facility] 07-25-2020 influenza, injectabl e, quadrivalent, contains preservative Lenard Furlong DO Work Phone: [facility] 2019 influenza, high dose seasonal, preservative-free Lenard Furlong DO Work Phone: [facility] 07-11-2019 influenza, high dose seasonal, preservative-free Lenard Furlong DO Work Phone: [facility] 08-08-2018 influenza, high dose seasonal, preservative-free Lenard Furlong DO Work Phone: [facility] 09-12-2017 tetanus toxoid, redu aniya diphtheria toxoid, and acellular pertussis vaccine, adsorbed Lenard Furlong DO Work Phone: [facility] 07-28-2017 influenza virus vacc ine, unspecified formulation Lenard Furlong DO Work Phone: [facility] 08-03-2016 influenza, high dose seasonal, preservative-free Lenard Furlong DO Work Phone: [facility] 08-06-2015 influenza, high dose seasonal, preservative-free Lenard Furlong DO Work Phone: [facility] 08-06-2015 pneumococcal conjuga te vaccine, 13 valent Lenard Furlong DO Work Phone: [facility] 08-31-2008 pneumococcal polysaccharide vaccine, 23 valent Lenard Furlong DO Work Phone: [facility] 08-13-2007 influenza virus vacc ine, whole virus Lenard Furlong DO Work Phone: [facility] Payers Date Payer Category Payer Medicare [employer]ARE [employer] [employer] [id number] 2023-Present [phone] [address] [place] [address] [id number] 2023 Medicare HMO [employer]ARE [id number] 2023 Medicare [id number] 1959 Medicare [id number] 1945 Unknown [id number] 1943 Unknown [id number] 1943 Unknown [id number] 1943 Unknown [id number] 1943 Unknown [id number] 1943 Unknown [id number] 1943 Unknown [id number] 1943 Unknown [id number] 1943 Unknown [id number] 1943 Unknown [id number] Social History Date Type Detail Facility Start: 04-08-2023 End: 06-25-2024 Tobacco smoking status NHIS Ex-smoker [facility] Start: 04-11-1972 End: 04-11-1997 History of tobacco use Current smoker [facility] Start: 04-11-1972 End: 04-11-1997 History of tobacco use Cigarette Smoker [facility] Start: 10-04-2022 End: 04-08-2023 Cigarettes smoked current (pack per day) - Reported 1 [facility] History of tobacco use Passive smoker [facility] Start: 04-08-2023 End: 06-25-2024 Tobacco use and exposure Smokeless tobacco non-user [facility] Start: 11-12-2023 End: 09-17-2024 Alcohol intake Current non-drinker of alcohol (finding) [facility] Start: 10-04-2022 End: 11-12-2023 [facility] [employer] [facility] Has the [employer], [employer], or water company threatened to shut off services in your home in past 12Mo No [facility] Do you belong to any clubs or organizations such as protestant groups, unions, fraternal or athletic groups, or school groups? Yes [facility] Are you now , , , , never or living with a partner? [facility] How often to you hav e a drink containing alcohol? Monthly or less [facility] How many standard dr inks containing alcohol do you have on a typical day? 1 or 2 [facility] How often do you hav e 6 or more drinks on 1 occasion? Never [facility] How hard is it for y ou to pay for the very basics like food, housing, medical care, and heating Not hard at all [facility] Do you feel stress - tense, restless, nervous, or anxious, or unable to sleep at night because your mind is troubled all the time - these days [OSQ] Only a little [facility] Start: 1945 Sex Assigned At Not on file P [facility] Start: 06-02-2015 Sex Female (finding) [facility] Clinical Notes 12-05-2023 to 09-17-2024 Lenard Ortiz, DO - 09/17/2024 2:00 PM Florence Ortiz, DO - 12/12/2023 3:20 PM EST Note Date & Type Note Facility 09-17-2024 History of Present illness Narrative Subjective Patient ID: Shelley Gilmore is a 79 y.o. female. Shelley presents today for a cough. It started 4-5 days ago. She has a productive cough with yellow sputum. She goes into fits of coughing. She has tried ouqo-amu-ubmzdwy cough medicine but that has been ineffective. She does not have a fever. She denies shortness a breath. Appetite and fluid intake has been fine. She tested herself for COVID and was negative. She feels that it is in her upper chest. She does not really have any sinus issues. The following portions of the patient's history were reviewed and updated as appropriate: allergies, current medications, past family history, past medical history, past social history, past surgical history, problem list, and medication reconciliation was completed including current medication and post discharge medication. Review of Systems Constitutional: Negative. HENT: Negative. Respiratory: Positive for cough. Negative for shortness of breath. Cardiovascular: Negative. Objective Physical Exam Constitutional: General: She is not in acute distress. Appearance: Normal appearance. She is well-groomed and normal weight. She is not ill-appearing. HENT: Head: Normocephalic. Right Ear: Tympanic membrane, ear canal and external ear normal. Left Ear: Tympanic membrane, ear canal and external ear normal. Nose: Rhinorrhea present. Rhinorrhea is clear. Right Turbinates: Pale. Left Turbinates: Pale. Mouth/Throat: Lips: Tintah. Mouth: Mucous membranes are moist. Pharynx: Oropharynx is clear. Uvula midline. No pharyngeal swelling or oropharyngeal exudate. Cardiovascular: Rate and Rhythm: Normal rate and regular rhythm. Pulses: Normal pulses. Heart sounds: Normal heart sounds. No murmur heard. Pulmonary: Effort: Pulmonary effort is normal. Breath sounds: Examination of the right-upper field reveals wheezing. Examination of the left-upper field reveals wheezing. Examination of the right-middle field reveals wheezing. Examination of the left-middle field reveals wheezing. Examination of the right-lower field reveals wheezing. Examination of the left-lower field reveals wheezing. Wheezing present. No rhonchi or rales. Comments: Expiratory wheezes bilaterally Musculoskeletal: Cervical back: Neck supple. Lymphadenopathy: Cervical: No cervical adenopathy. Neurological: General: No focal deficit present. Mental Status: She is alert and oriented to person, place, and time. Psychiatric: Attention and Perception: Attention normal. Mood and Affect: Mood and affect normal. Speech: Speech normal. Behavior: Behavior normal. Thought Content: Thought content normal. Cognition and Memory: Cognition normal. Judgment: Judgment normal. Assessment/Plan Shelley was seen today for cough. Diagnoses and all orders for this visit: COPD exacerbation ([facility]) Will treat with a steroid burst and Tessalon Perles. Call if feverish or if no better and will add an antibiotic. Go to the ER for shortness a breath. Stay on Anoro for now. She declined rescue inhaler she does not feel short of breath. Other orders - methylPREDNISolone (MEDROL, WILSON,) 4 mg tablet; Take 1 tablet (4 mg total) by mouth in the morning. follow package directions. - benzonatate (TESSALON PERLES) 100 mg capsule; Take 2 capsules (200 mg total) by mouth 3 (three) times a day as needed for cough. [email or web address] 12-12-[facility]23 History of Present illness Narrative Subjective Patient ID: Shelley Gilmore is a 78 y.o. female. Shelley presents [...] Exam Vitals reviewed. Exam conducted with a evaporative cooler installer present (daughter). Constitutional: General: She is not [...] disease with stage 3a chronic kidney disease ([facility]) - Basic Metabolic Panel; Future Check BMP [...] 50 mg daily documented in this encounter [facility] 12-12-2023 Evaluation note Diagnosis Orthostatic hypotension- Primary Hypertensive kidney disease with stage 3a chronic kidney disease ([facility]) Essential hypertension Unspecified essential hypertension Iron deficiency anemia, unspecified iron deficiency anemia type Essential (primary) hypertension Unspecified essential hypertension documented in this encounter [facility]02-08-2024 Miscellaneous Notes* Telephone Encounter - Meenakshi Brock - 12/05/2023 8:46 AM EST The patients daughter Dee called inquiring about Sharons breathing issues. She wonders if she would be a good candidate for a low-dose MRI. Please advise. * Telephone Encounter - Lenard Ortiz DO - 12/05/2023 8:46 AM EST She probably means low-dose CT scan but she does not qualify. She quit smoking too long ago to qualify. She asked to have quit within the last 15 years and she quit in 1996 * Telephone Encounter - Meenakshi Brock - 12/05/2023 8:46 AM EST Patient contact Dee notified of provider response [facility] encounter Note* Telephone Encounter - Meenakshi Brock - 12/05/2023 8:46 AM EST The patients daughter Dee called inquiring about Sharons breathing issues. She wonders if she would be a good candidate for a low-dose MRI. Please advise. [facility]02-08-2024 Telephone encounter Note* Telephone Encounter - Lenard Ortiz DO - 12/05/2023 8:46 AM EST She probably means low-dose CT scan but she does not qualify. She quit smoking too long ago to qualify. She asked to have quit within the last 15 years and she quit in 1996 [facility]02-08-2024 Telephone encounter Note* Telephone Encounter - Meenakshi Brock - 12/05/2023 8:46 AM EST Patient contact Dee notified of provider response [facility] Diagnosis Neuropathic postherpetic trigeminal neuralgia [facility]* Diagnosis Hypokalemia Hypopotassemia [facility] Diagnosis COPD exacerbation ([facility])- Primary Obstructive chronic bronchitis with exacerbation [facility] in [facility] encounter [facility]ructions[facility] on filedocumented in this encounter [facility] System[facility]ructionsNot on filedocumented in this encounter [facility] on filedocumented in this encounter [facility] System[facility]ructionsNot on filedocumented in this encounter [facility] Summary Purpose Family History No Family [...] CREATED AUTHOR AUTHOR'S ORGANIZ ATION 09/15/2022 [facility] DATE CREATED AUTHOR AUTHOR'S ORGANIZ ATION 05/16/2024 [facility] DATE CREATED AUTHOR AUTHOR'S ORGANIZ ATION 09/20/2024 [facility] Care Teams (unrecognized sec tion and content) Home Aid Relationship Specialty Start Date End Date Lenard Ortiz DO [address], [place] [address] PCP - General Family Medicine 04/11/17 Home Aid Relationship Specialty Start Date End Date Lenard Ortiz DO [address], [place] [address] PCP - General Family Medicine 04/11/17 Home Aid Relationship Specialty Start Date End Date Lenard Ortiz DO [address], [place] [address] PCP - General Family Medicine 04/11/17 Home Aid Relationship Specialty Start Date End Date Lenard Ortiz DO [address], [place] [address] PCP - General Family Medicine 04/11/17 Reason for Visit (unrecogniz ed section and content) Reason Comments Dizziness Back Pain Diarrhea Shortness of Breath Needs to sit down Reason Comments Med Refill Reason Comments Cough FOR RECORDS PERTAINING TO PATIENTS WHO ARE [...] BE BASED ON THE PRIMARY CLINICAL RECORDS. [facility]. provides no warranty or guarantee of the accuracy or completeness of information in this document.
[2024-09-22 17:01] VITALS: O2SAT 96
[2024-09-22 17:10] VITALS: PULSE 103; O2SAT 97
[2024-09-22] MEDS: IPRATROPIUM/ALBUTEROL SULFATE 3 ML AMPUL.NEB IH (17:15)
--- NOTE | 2024-09-22 17:29 | ED.GENADUL1 ---
HPI HPI - General Adult General Chief complaint: Upper Respiratory Infection Stated complaint: WEAKNESS/COUGH Time Seen by Provider: 09/22/24 16:56 Source: patient Mode of arrival: walk-in Limitations: no limitations History of Present Illness HPI narrative: Patient is a 79-year-old female who is presenting to the ER today with chief complaint of 9 days of coughing, congestion, sinus pressure. Patient was a smoker for 20 to 30 years. Patient quit smoking approximately 30 years ago. Patient does take Advair daily to help with emphysema/COPD. Patient wears no oxygen during the day or at nighttime. Patient has had mild nausea with posttussive episodes, she has had no vomiting. Patient does have sinus pressure to her bilateral frontal sinuses, mild to maxillary sinuses. Patient does have a sore throat. Patient is having intermittent dry and productive yellowish cough. Patient daughter is at bedside. She has had intermittent nausea with no vomiting. No diarrhea constipation. No recent traveling. No other sick contacts. No other acute complaints at this time. All systems are negative except as noted/marked. All systems reviewed and otherwise negative. Nurses note and vital signs reviewed and patient is not hypoxic. General: The patient appears well and in no apparent distress. Patient is resting comfortably on cart. Patient is not toxic, lethargic, or listless Skin: Warm, dry, no pallor noted. There is no rash noted. No petechiae, purpura. Head: Normocephalic, atraumatic, patient has mild to moderate tenderness to palpation to bilateral frontal sinuses. Patient has mild tenderness to palpation to bilateral maxillary sinuses. Eye: Normal conjunctiva, no drainage, EOMI. PERRL Ears, Nose, Mouth, and Throat: oral mucosa is moist. Patient has clear drainage to the posterior pharynx, patient has a beefy red posterior pharynx, cobblestoning noted, no unilateral swelling. No brawny tongue, no pain to the floor of the mouth, no other ulcerations, stomatitis, or any other acute signs of infection. Nares patent. Mouth without vesicles. Cardiovascular: Regular Rate and Rhythm, no murmur, gallop, rub Respiratory: Patient is in no distress, no accessory muscle use, lungs bilateral congestion, coarse, minimal rhonchi bilateral bases, diffuse wheezing; no crackles or rales. Back: non-tender, no CVA tenderness bilaterally to percussion. No CT LS midline pain GI: no tenderness to palpation, no masses appreciated. No rebound, guarding, or rigidity noted. No distention Musculoskeletal: Patient has full range of motion of all of the extremities, no motor, sensory, or focal neurological deficits Neurological: A&O x4, normal speech Psychiatric: Cooperative Related Data Home Medications ?Medication ?Instructions ?Recorded ?Confirmed losartan 100 mg tablet 100 mg PO DAILY 09/27/23 09/22/24 meloxicam 15 mg tablet 15 mg PO DAILY PRN pain 09/27/23 09/27/23 potassium chloride 10 mEq 10 meq PO DAILY 09/27/23 09/22/24 tablet,extended release(part/cryst) rosuvastatin 40 mg tablet 40 mg PO DAILY 09/27/23 09/22/24 umeclidinium 62.5 mcg-vilanterol 1 inh inhalation Q24H 09/27/23 09/27/23 25 mcg/actuation powdr for inhalation (Anoro Ellipta) Previous Rx's ?Medication ?Instructions ?Recorded acyclovir 800 mg tablet 800 mg PO Q4H #35 tabs 09/27/23 hydrocodone 5 mg-acetaminophen 325 1 tab PO Q8H PRN severe pain #10 09/27/23 mg tablet tabs prednisone 20 mg tablet 20 mg PO DAILY #11 tabs 09/27/23 famotidine 20 mg tablet (Pepcid) 20 mg PO BID #10 tabs 04/01/24 albuterol sulfate 90 mcg/actuation 2 inh inhalation Q4H PRN shortness 09/22/24 aerosol inhaler of breath or wheezing 7 days #8.5 grams amoxicillin 875 mg-potassium 1 tab PO Q12H 10 days #20 tabs 09/22/24 clavulanate 125 mg tablet eefcrfeasjgyeco-lzliaweisgawizp-ZA 10 ml PO Q6H PRN cold symptoms 09/22/24 2 mg-30 mg-10 mg/5 mL oral syrup #200 mL (Bromfed DM) Allergies Allergy/AdvReac Type Severity Reaction Status Date / Time No Known Drug Allergies Allergy Verified 09/22/24 16:48 Opioid HPI Opioid Management Most Recent Opioid Data: Last Pain Scale 10 09/27/23 10:38 09/27/23 PFSH PFSH Social History Little interest or pleasure in doing things: not at all Feeling down, depressed, or hopeless: not at all Exam Constitutional Vital Signs, click to edit/add: Last Vital Signs Temp 98.3 F 09/22/24 16:48 Pulse 103 H 09/22/24 17:10 Resp 20 09/22/24 17:10 BP 129/85 09/22/24 16:48 Pulse Ox 97 09/22/24 17:10 O2 Del Method Room Air 09/22/24 17:10 Course Vital Signs Vital signs: Vital Signs Temperature 98.3 F 09/22/24 16:48 Pulse Rate 119 H 09/22/24 16:48 Respiratory Rate 20 09/22/24 16:48 Blood Pressure 129/85 09/22/24 16:48 Pulse Oximetry 96 09/22/24 16:48 Oxygen Delivery Method Room Air 09/22/24 16:48 Temperature 98.3 F 09/22/24 16:48 Pulse Rate 103 H 09/22/24 17:10 Respiratory Rate 20 09/22/24 17:10 Blood Pressure 129/85 09/22/24 16:48 Pulse Oximetry 97 09/22/24 17:10 Oxygen Delivery Method Room Air 09/22/24 17:10 Medical Decision Making MDM Narrative Medical decision making narrative: 10-minute discussion was had at discharge and all the different medications that patient can be taking to help dry up sinuses, true sinuses, and therefore secondarily treat bronchitis, chest congestion and sore throat. Patient just finished a course of 5 days of prednisone and Tessalon Perles that was prescribed by her PCP. Patient will be placed on Augmentin, given a prescription for Bromfed and albuterol inhaler. Patient is also educated on all the medications that she can take ixdz-cqq-jlzvfro. Patient understands using short-term DayQuil NyQuil is okay with blood pressure, but using it long-term is not okay. Patient was told she could use Zyrtec or Claritin instead if she wanted to. Patient will follow-up with PCP and make an appointment tomorrow. Daughter and patient understand all directions. Patient understands cold popsicles, cold drinks to help with the pain to the posterior pharynx. No questions discharge. Discharge Plan Discharge Chief Complaint: Upper Respiratory Infection Clinical Impression: Sinusitis, Bronchitis, COPD exacerbation Patient Disposition: Home, Self-Care Time of Disposition Decision: 17:25 Condition: Fair Prescriptions / Home Meds: New albuterol sulfate 90 mcg/actuation HFA aerosol inhaler 2 inh inhalation Q4H PRN (Reason: shortness of breath or wheezing) 7 Days Qty: 8.5 0RF aacfzzmfksivjvt-zdefsldye-VJ [Bromfed DM] 2-30-10 mg/5 mL syrup 10 ml PO Q6H PRN (Reason: cold symptoms) Qty: 200 0RF amoxicillin-pot clavulanate 875-125 mg tablet 1 tab PO Q12H 10 Days Qty: 20 0RF No Action losartan 100 mg tablet 100 mg PO DAILY potassium chloride 10 mEq tablet,ER particles/crystals 10 meq PO DAILY meloxicam 15 mg tablet 15 mg PO DAILY PRN (Reason: pain) rosuvastatin 40 mg tablet 40 mg PO DAILY Anoro Ellipta 62.5-25 mcg/actuation blister with device 1 inh INHALATION Q24H acyclovir 800 mg tablet 800 mg PO Q4H Qty: 35 0RF Rx Instructions: while awake; give 5 doses in 24 hours prednisone 20 mg tablet 20 mg PO DAILY Qty: 11 0RF Rx Instructions: take two tabs daily for 4 days then one tab daily for 3 days hydrocodone-acetaminophen 5-325 mg tablet 1 tab PO Q8H PRN (Reason: severe pain) Qty: 10 0RF Rx Instructions: ICD 10 B02 famotidine [Pepcid] 20 mg tablet 20 mg PO BID Qty: 10 0RF Print Language: Korean Instructions: Sinusitis (ED), How to Use a Metered-Dose Inhaler (ED), Acute Bronchitis (ED), COPD (Chronic Obstructive Pulmonary Disease) (ED) Additional Instructions: Use your inhaler 2 puffs every 4 hours while you are awake for the next 7 to 10 days to help with coughing, wheezing, also to help break down mucous plugs as well. Sleep in reclining chair or with several pillows at nighttime to help with coughing at bedtime as discussed. Increase fluids at home, Gatorade, Powerade, or water. Alternate using DayQuil, NyQuil, and Flonase. Add Mucinex as well as needed. Alternate Tylenol and Motrin every 4 hours to help with fever control, body aches or joint pain. Use zkrj-snz-tyegayy vitamin C, vitamin D3, and zinc to help fight infection and help with her immune system. Referrals: LUDY DRUMMOND [Primary Care Provider] - 1 week
== END 2024-09-22 17:37 | disposition home or self-care (01) ==
PROVIDERS: Emergency Provider Emergency Medicine; PCP Family Medicine
DX: J32.9 Chronic sinusitis, unspecified (principal); J43.9 Emphysema, unspecified; Z87.891 Personal history of nicotine dependence; J40 Bronchitis, not specified as acute or chronic
CPT/HCPCS: 94640; 99283

== ENCOUNTER 2024-10-01 13:24 | Emergency (ER) | payer MEDICARE, SELFPAY ==
[2024-10-01 13:37] VITALS: BP 132/87; PULSE 90; TEMP 36.7; O2SAT 98
--- NOTE | 2024-10-01 13:49 | ECG_ITS ---
The [facility] Test Date: 2024-10-01 Pat Name: PROSPER GILMORE Department: Room: - Gender: Female Stoker Erector: : 1945 Requested By: LUDY DRUMMOND Order Number: [id number] Reading MD: JAMES RANGEL Measurements Intervals [place] Rate: 93 P: 69 OR: 134 QRS: 72 QRSD: 86 T: 68 QT: 334 QTc: 385 Interpretive Statements 1100 Sinus rhythm 9110 normal ECG Compared to ECG 04/01/2024 09:49:07 No significant changes Electronically Signed On 10-01-2024 20:22:55 EST by JAMES RANGEL
--- NOTE | 2024-10-01 13:53 | CT_ITS ---
The [address] [address] Patient Name: PROSPER GILMORE MRN: [id number] date: 1945 Sex: F Assigned Patient Location: ER Current Patient Location: ER Accession/Order Number: [id number] Exam Date: 10/01/2024 14:20 Report Date: 10/01/2024 15:06 At the request of: SEBASTIÁN JUÁREZ Procedure: CT head/brain wo con CT HEAD WITHOUT CONTRAST. INDICATION: Dizziness COMPARISON: None available for comparison TECHNIQUE: Axial CT head images from the skull base to the vertex without IV contrast were acquired. Coronal and sagittal reformats were also obtained. FINDINGS: EXTRA-AXIAL SPACE: Age-appropriate ventricles. No acute extra-axial collection. No extra-axial mass. No midline shift. CEREBRUM: There are areas of periventricular and deep white matter low-attenuation, which is nonspecific but likely reflective of chronic microvascular ischemic disease.. No CT evidence of acute large territorial cortical infarct, hemorrhage or mass effect. CEREBELLUM: No focal abnormality. No CT evidence of acute infarct, hemorrhage or mass effect. BRAINSTEM: No focal abnormality. No CT evidence of acute infarct, hemorrhage or mass effect. EXTRACRANIAL STRUCTURES. The paranasal sinuses are clear. Mastoid air cells are clear. Orbits are unremarkable. No discrete pituitary mass. Intact calvarium. CT/CT head/brain wo con IMPRESSION: No acute intracranial abnormality. Electronically authenticated by: YONIS LUI Date: 10/01/2024 15:06
--- NOTE | 2024-10-01 13:54 | XR_ITS ---
[address] [address] Patient Name: PROSPER GILMORE MRN: [id number] date: 1945 Sex: F Assigned Patient Location: ER Current Patient Location: ER Accession/Order Number: [id number] Exam Date: 10/01/2024 14:20 Report Date: 10/01/2024 15:16 At the request of: SEBASTIÁN JUÁREZ Procedure: XR chest 1V PORTABLE CHEST X-RAY. INDICATION: Cough. COMPARISON: 04/01/2024. TECHNIQUE: Single AP portable chest radiograph. FINDINGS: TUBES AND LINES: None. LUNGS: Lungs are clear. PLEURA: No effusions or pneumothorax. HEART AND MEDIASTINUM: Within normal limits for portable technique. OSSEOUS STRUCTURES: No acute abnormality. XR/XR chest 1V IMPRESSION: No acute findings. Electronically authenticated by: YONIS LUI Date: 10/01/2024 15:16
--- NOTE | 2024-10-01 13:55 | ED_ITS ---
HPI HPI - General Adult General Chief complaint: Dizziness Stated complaint: DIZZY Time Seen by Provider: 10/01/24 13:29 Source: patient Mode of arrival: walk-in Limitations: no limitations History of Present Illness HPI narrative: Patient is an 79-year-old female who presents to the emergency department for feeling weak. She was seen in this emergency department 10 days ago for cough and upper respiratory symptoms. She was placed on cough medication and antibiotics. She states she still has several doses of the antibiotic left, but she has finished the cough medicine and does feel as though her upper respiratory symptoms are improving. She states she was doing well until this morning when she started to feel lightheaded and off balance and a friend convinced her to be seen in the ER. She denies chest pain, shortness of breath, fevers, vomiting or diarrhea. She states she did feel lightheaded and nauseous this morning but does not have any persistent nausea. She denies any syncope or falls. Related Data Home Medications ?Medication ?Instructions ?Recorded ?Confirmed losartan 100 mg tablet 100 mg PO DAILY 09/27/23 10/01/24 meloxicam 15 mg tablet 15 mg PO DAILY PRN pain 09/27/23 09/27/23 potassium chloride 10 mEq 10 meq PO DAILY 09/27/23 10/01/24 tablet,extended release(part/cryst) rosuvastatin 40 mg tablet 40 mg PO DAILY 09/27/23 10/01/24 umeclidinium 62.5 mcg-vilanterol 1 inh inhalation Q24H 09/27/23 09/27/23 25 mcg/actuation powdr for inhalation (Anoro Ellipta) Previous Rx's ?Medication ?Instructions ?Recorded acyclovir 800 mg tablet 800 mg PO Q4H #35 tabs 09/27/23 hydrocodone 5 mg-acetaminophen 325 1 tab PO Q8H PRN severe pain #10 09/27/23 mg tablet tabs famotidine 20 mg tablet (Pepcid) 20 mg PO BID #10 tabs 04/01/24 albuterol sulfate 90 mcg/actuation 2 inh inhalation Q4H PRN shortness 09/22/24 aerosol inhaler of breath or wheezing 7 days #8.5 grams amoxicillin 875 mg-potassium 1 tab PO Q12H 10 days #20 tabs 09/22/24 clavulanate 125 mg tablet faypbnabaobmpsu-pfqifbeoqnsgkae-PS 10 ml PO Q6H PRN cold symptoms 09/22/24 2 mg-30 mg-10 mg/5 mL oral syrup #200 mL (Bromfed DM) ondansetron 4 mg disintegrating 4 mg PO Q6H PRN nausea and 10/01/24 tablet vomiting #12 tabs Allergies Allergy/AdvReac Type Severity Reaction Status Date / Time No Known Drug Allergies Allergy Verified 10/01/24 13:40 Opioid HPI Opioid Management Most Recent Opioid Data: Last Pain Scale 10 09/27/23 10:38 09/27/23 Review of Systems ROS Constitutional Denies: fever or chills Ears, nose, mouth, and throat Denies: throat pain, nasal discharge or nasal congestion Cardiovascular Denies: chest pain Respiratory Reports: cough; Denies: shortness of breath Gastrointestinal Denies: nausea or vomiting Musculoskeletal Denies: back pain Integumentary/Breast Denies: rash Neurological Denies: numbness in extremities or weakness in extremities Hematologic/Lymphatic Denies: easy bruising or easy bleeding PFSH PFSH Social History Little interest or pleasure in doing things: not at all Feeling down, depressed, or hopeless: not at all Exam Narrative Exam Narrative: Gen.: Awake, alert, in no distress Head: Normocephalic, atraumatic ENT: Moist mucous membranes, bilateral TMs clear Respiratory: No respiratory distress, lungs clear bilaterally, no coughing noted. No wheezing or rhonchi Cardio: Regular rate and rhythm Extremities: Moves extremities equally Psych: Normal mood and affect Neuro: No focal neuro deficit Skin: Warm, dry, intact Constitutional Vital Signs, click to edit/add: Last Vital Signs Temp 98.0 F 10/01/24 13:37 Pulse 90 10/01/24 13:37 Resp 24 H 10/01/24 13:37 BP 132/87 10/01/24 13:37 Pulse Ox 98 10/01/24 13:37 O2 Del Method Room Air 10/01/24 13:37 Course Vital Signs Vital signs: Vital Signs Temperature 98.0 F 10/01/24 13:37 Pulse Rate 90 10/01/24 13:37 Respiratory Rate 24 H 10/01/24 13:37 Blood Pressure 132/87 10/01/24 13:37 Pulse Oximetry 98 10/01/24 13:37 Oxygen Delivery Method Room Air 10/01/24 13:37 Temperature 98.0 F 10/01/24 13:37 Pulse Rate 90 10/01/24 13:37 Respiratory Rate 24 H 10/01/24 13:37 Blood Pressure 132/87 10/01/24 13:37 Pulse Oximetry 98 10/01/24 13:37 Oxygen Delivery Method Room Air 10/01/24 13:37 Medical Decision Making MDM Narrative Medical decision making narrative: Lab studies are unremarkable, stable chronic kidney disease. Urine specimen is unremarkable. Patient is able to ambulate in the ER. CT of the brain and chest x-ray are negative. She was offered observation admission if she feels too lightheaded to go home, however the patient is very eager to be discharged home. She was reevaluated by attending physician. She has stable vital signs in the ER and will be given a prescription of Zofran as needed. Continue to push fluids and follow-up with primary care. Return to the ER if symptoms change or worsen SHARED APC VISIT, PHYSICIAN ATTESTATION: [id number] I performed a substantive part of the MDM during the patient?s E/M visit. I personally evaluated and examined the patient. I personally made or approved the documented management plan and acknowledge its risk of complications. Medical Records Medical records reviewed: Yes I reviewed the patient's medical records Lab Data Lab results reviewed: Yes I reviewed the patient's lab results Labs: Lab Results 10/01/24 10/01/24 Range/Units 13:45 14:10 WBC 8.4 (4.0-11.0) 10^3/uL RBC 3.83 L (4.20-5.40) 10^6/uL Hgb 12.5 (12.0-16.0) g/dL Hct 37.2 (36.0-48.0) % MCV 97.1 (81.0-99.0) fL MCH 32.6 (26.7-34.0) pg MCHC 33.6 (29.9-35.2) g/dL RDW 12.6 (11.0-15.0) % Plt Count 402 (150-450) 10^3/uL MPV 8.7 L (9.5-13.5) fL Neut % (Auto) 78.5 H (43.0-75.0) % Lymph % (Auto) 11.2 L (20.5-60.0) % [place] % (Auto) 7.1 (1.7-12.0) % Eos % (Auto) 2.6 (0.9-7.0) % Baso % (Auto) 0.2 (0.2-2.0) % Neut # (Auto) 6.6 H (1.4-6.5) 10^3/uL Lymph # (Auto) 0.9 L (1.2-3.8) 10^3/uL [place] # (Auto) 0.6 (0.3-0.8) 10^3/uL Eos # (Auto) 0.2 (0.0-0.7) 10^3/uL Baso # (Auto) 0.0 (0.0-0.1) 10^3/uL Abs Immat Gran (auto) 0.03 (0.00-0.03) 10^3/uL Imm/Tot Granulo (auto) 0.4 (0.0-0.5) % PT 10.7 (9.0-11.6) sec INR 1.01 VBG pH 7.396 (7.330-7.430) VBG pCO2 36.0 L (40.0-52.0) mmHg Sodium 138 (136-145) mmol/L Potassium 4.5 (3.5-5.1) mmol/L Chloride 103 (98-107) mmol/L Carbon Dioxide 22.8 (21.0-32.0) mmol/L Anion Gap 16.7 BUN 35.0 H (7.0-18.0) mg/dL Creatinine 1.29 H (0.55-1.02) mg/dL Est GFR ( Amer) 48 L (>=60 mL/min/1.73m^2) Est GFR (Non-Af Amer) 40 L (>=60 mL/min/1.73m^2) BUN/Creatinine Ratio 27.1 Glucose 107 H (74-106) mg/dL Lactate 1.6 (0.4-2.0) mmol/L Calcium 10.3 H (8.5-10.1) mg/dL Total Bilirubin 0.4 (0.2-1.0) mg/dL AST 19 (15-37) U/L ALT 23 (14-59) U/L Alkaline Phosphatase 67 (46-116) U/L Troponin I High Sens 23.0 (4.0-51.3) pg/mL NT-Pro-B Natriuret Pep 153.0 (<=1800.0) pg/mL Total Protein 7.9 (6.4-8.2) g/dL Albumin 2.9 L (3.4-5.0) g/dL Globulin 5.0 g/dL Albumin/Globulin Ratio 0.6 Urine Color Yellow (YELLOW) Urine Clarity Clear (CLEAR) Urine pH 6.0 (5.0-9.0) Ur Specific [place] 1.010 (1.005-1.025) Urine Protein Negative (NEG/TRACE) mg/dL Urine Glucose (UA) Negative (NEGATIVE) mg/dL Urine Ketones Negative (NEGATIVE) mg/dL Urine Occult Blood Negative (NEGATIVE) Urine Nitrite Negative (NEGATIVE) Urine Bilirubin Negative (NEGATIVE) Urine Urobilinogen 0.2 (0.2-1.0) EU/dL Ur Leukocyte Esterase Negative (NEGATIVE) Imaging Data CT scan - head: Attestation: I have reviewed the pertinent imaging results. Radiologist's impression: ITS Impressions Head CT 10/01/24 13:53 IMPRESSION: No acute intracranial abnormality. Electronically authenticated by: YONIS LUI Date: 10/01/2024 15:06 Chest X-Ray 10/01/24 13:54 IMPRESSION: No acute findings. Electronically authenticated by: YONIS LUI Date: 10/01/2024 15:16 ECG Data Attestation: I personally reviewed and interpreted this ECG as follows: (Normal sinus rhythm at a rate of 93, no acute ST elevation or ectopy. EKG reviewed by attending physician) Discharge Plan Discharge Chief Complaint: Dizziness Clinical Impression: Dizziness Patient Disposition: Home, Self-Care Time of Disposition Decision: 15:22 Condition: Good Prescriptions / Home Meds: New ondansetron 4 mg tablet,disintegrating 4 mg PO Q6H PRN (Reason: nausea and vomiting) Qty: 12 0RF No Action losartan 100 mg tablet 100 mg PO DAILY potassium chloride 10 mEq tablet,ER particles/crystals 10 meq PO DAILY meloxicam 15 mg tablet 15 mg PO DAILY PRN (Reason: pain) rosuvastatin 40 mg tablet 40 mg PO DAILY Anoro Ellipta 62.5-25 mcg/actuation blister with device 1 inh INHALATION Q24H acyclovir 800 mg tablet 800 mg PO Q4H Qty: 35 0RF Rx Instructions: while awake; give 5 doses in 24 hours hydrocodone-acetaminophen 5-325 mg tablet 1 tab PO Q8H PRN (Reason: severe pain) Qty: 10 0RF Rx Instructions: ICD 10 B02 albuterol sulfate 90 mcg/actuation HFA aerosol inhaler 2 inh inhalation Q4H PRN (Reason: shortness of breath or wheezing) 7 Days Qty: 8.5 0RF potagtrwaqtwyjr-qshsefgtx-ZX [Bromfed DM] 2-30-10 mg/5 mL syrup 10 ml PO Q6H PRN (Reason: cold symptoms) Qty: 200 0RF amoxicillin-pot clavulanate 875-125 mg tablet 1 tab PO Q12H 10 Days Qty: 20 0RF famotidine [Pepcid] 20 mg tablet 20 mg PO BID Qty: 10 0RF Print Language: Chinese Instructions: Dizziness (ED) Referrals: LUDY DRUMMOND [Primary Care Provider] - 1 week
[2024-10-01 14:11] LABS: pH VBG 7.396 (7.330-7.430)
[2024-10-01 14:15] LABS: Basophils Percent Auto 0.2 % (0.2-2.0); Eosinophils Absolute Auto 0.2 10^3/uL (0.0-0.7); Eosinophils Percent Auto 2.6 % (0.9-7.0); Hematocrit 37.2 % (36.0-48.0); Hemoglobin 12.5 g/dL (12.0-16.0); Immature Granulocytes Abs Auto 0.03 10^3/uL (0.00-0.03); Immature Granulocytes Pct Auto 0.4 % (0.0-0.5); Lymphocytes Absolute Auto 0.9 10^3/uL (1.2-3.8); Lymphocytes Percent Auto 11.2 % (20.5-60.0); Mean Corpuscular HGB Conc 33.6 g/dL (29.9-35.2); Mean Corpuscular Hemoglobin 32.6 pg (26.7-34.0); Mean Corpuscular Volume 97.1 fL (81.0-99.0); Mean Platelet Volume 8.7 fL (9.5-13.5); Monocytes Absolute Auto 0.6 10^3/uL (0.3-0.8); Monocytes Percent Auto 7.1 % (1.7-12.0); Neutrophils Absolute Auto 6.6 10^3/uL (1.4-6.5); Neutrophils Percent Auto 78.5 % (43.0-75.0); Platelet Count 402 10^3/uL (150-450); Red Blood Count 3.83 10^6/uL (4.20-5.40); Red Cell Distribution Width 12.6 % (11.0-15.0); White Blood Count 8.4 10^3/uL (4.0-11.0)
[2024-10-01 14:23] LABS: Bilirubin Urine NEGATIVE (NEGATIVE); Blood Urine NEGATIVE (NEGATIVE); Clarity Urine CLEAR (CLEAR); Color Urine YELLOW (YELLOW); Glucose Urine UA NEGATIVE (NEGATIVE); Ketones Urine NEGATIVE (NEGATIVE); Leukocyte Esterase Urine NEGATIVE (NEGATIVE); Nitrite Urine NEGATIVE (NEGATIVE); Protein Urine NEGATIVE (NEG/TRACE); Urobilinogen Urine 0.2 EU/dL (0.2-1.0)
[2024-10-01 14:28] LABS: Urine Microscopic Indicated NO
[2024-10-01 14:29] LABS: INR 1.01; Prothrombin Time 10.7 sec (9.0-11.6)
[2024-10-01 14:41] LABS: Alanine Aminotransferase 23 U/L (14-59); Albumin Globulin Ratio 0.6; Albumin Level 2.9 g/dL (3.4-5.0); Alkaline Phosphatase 67 U/L (46-116); Anion Gap 16.7; Aspartate Amino Transferase 19 U/L (15-37); BUN Creatinine Ratio 27.1; Bilirubin Total 0.4 mg/dL (0.2-1.0); Calcium 10.3 mg/dL (8.5-10.1); Carbon Dioxide 22.8 mmol/L (21.0-32.0); Chloride 103 mmol/L (98-107); Estimated GFR (African America 48 (>=60 mL/min/1.73m^2); Estimated GFR (Non-African Ame 40 (>=60 mL/min/1.73m^2); Glucose 107 mg/dL (74-106); Lactate/Lactic Acid 1.6 mmol/L (0.4-2.0); Potassium 4.5 mmol/L (3.5-5.1); Sodium 138 mmol/L (136-145); Total Protein 7.9 g/dL (6.4-8.2)
== END 2024-10-01 15:45 | disposition home or self-care (01) ==
PROVIDERS: Physician Assistant; Emergency Provider Emergency Medicine; PCP Family Medicine
DX: R42 Dizziness and giddiness (principal)
CPT/HCPCS: 36415; 70450; 71045; 80053; 81003; 82800; 83605; 83880; 84484; 85025; 85610; 87040; 93005; 99285

== ENCOUNTER 2025-02-19 07:53 | Outpatient (OUT) | payer MEDICARE, SELFPAY ==
--- NOTE | 2025-02-19 08:01 | US_ITS ---
[address] [address] Patient Name: PROSPER GILMORE MRN: [id number] date: 1945 Sex: F Assigned Patient Location: US Current Patient Location: US Accession/Order Number: [id number] Exam Date: 02/19/2025 09:13 Report Date: 02/19/2025 09:14 At the request of: LUDY DRUMMOND Procedure: US renal BI BILATERAL RENAL AND BLADDER ULTRASOUND CLINICAL HISTORY: Stage 3 Chronic Kidney Disease COMPARISON: None FINDINGS: Estimation of renal size is approximately 10.1 cm on the right and 7.6 cm on the left. No contour deforming mass, shadowing stone or hydronephrosis. Cystic changes involving both kidneys. The urinary bladder is partially distended with a volume of 469 ml. No shadowing stone or focal lesion. US/US renal BI IMPRESSION: No acute findings. Impression dictated by: Didier Kidd Jr., D.O. 02/19/2025 9:14 AM Dictation Location: [place] [address] Electronically authenticated by: [id number] Date: 02/19/2025 09:14
== END 2025-02-19 07:54 | disposition home or self-care (01) ==
LOC: US 07:55
PROVIDERS: PCP Family Medicine; Visit Provider Family Medicine
DX: N18.31 Chronic kidney disease, stage 3a (principal); R80.9 Proteinuria, unspecified
CPT/HCPCS: 76775